=== PATIENT | male | born 1955 | race Caucasian/White ===

== ENCOUNTER → 2016-05-24 | Outpatient (CLI) | payer OTHER ==
--- NOTE | 2016-05-24 20:08 | REP ---
ORBITS COMPLETE FOR MRI: 05/24/2016. Clinical history rule out foreign body orbits before MRI. Findings: AP and lateral views were obtained. There is no radiopaque foreign body about the orbits. The patient is cleared for MRI. Signed by Wilton Valles MD 05/24/2016 07:59 P
--- NOTE | 2016-05-30 08:38 | REP ---
Right shoulder MRI study without contrast: History: Right shoulder pain. Question tear. Osteonecrosis right shoulder. Comparison radiographs have been retrieved from [facility] dated March 20, 2016. These demonstrate osteoarthritic spurring at the glenohumeral articulation and a triangular osteochondral defect in the articular surface of the humeral head consistent with an unstable osteochondral fragment associated with an osteonecrosis. There is also an accessory ossicle at the superior aspect of the acetabulum. Technique: Axial, oblique coronal, and oblique sagittal imaging planes are utilized. T1 and T2-weighted scans were obtained in the usual fashion. MRI findings: There is a small amount of glenohumeral and acromioclavicular joint fluid. A tiny sliver of subacromial subdeltoid bursal effusion is seen. There is some fluid in the biceps tendon sheath. No juxtaarticular cyst or mass is seen. There is osteoarthritis of the acromioclavicular joint with inferior and superior hypertrophy and spurring. There is some inferolateral spurring of the acromion process. There are fairly large areas of marrow edema and subcortical cyst formation in the superolateral humeral head in the region of the greater tuberosity. The osteochondral defect lesion versus osteonecrotic lesion which is sclerotic on the radiographs along the articular margin of the humeral head is seen on MR as a low T1, low T2 signal intensity lesion in the articular cartilage bone. This measures 11 mm in craniocaudal span by 16 mm anterior to posterior by 6 mm in medial to lateral depth. On gradient echo T2-weighted scan, there are two osteochondral fragments adjacent one another both of which are surrounded by T2 hyperintense fluid signal consistent with unstable osteochondral fragments. There is some depression of the articular surface over the fragments both radiographically and on MR images in the oblique coronal plane. There is subcortical cyst formation deep to this osteochondral defect lesion. Cortical and medullary bone signal intensity are otherwise normal in the humeral head. Osteoarthritic spurring is seen at the inferior margin of the glenoid as well as at the greater tuberosity at the supraspinatus tendon insertion. There is articular cartilage loss on the humeral head and on the glenoid indicating moderate to advanced chondromalacia. Some glenoid spurring is seen. There is an ossific body in the superior labral cartilage. This is felt to correspond to the radiographic finding of bone density here. Some fraying and irregularity of the anterior labral cartilage and less prominent fraying and increased signal intensity is seen in the posterior labral cartilage. The infraspinatus, subscapularis, and biceps tendons appear to be intact. There is diffuse tendinosis/tendonitis change in the distal supraspinatus tendon without focal full-thickness supraspinatus tear. There is a focal partial-thickness T2 hyperintense lesion in the distal insertion of the supraspinatus tendon on oblique coronal T2-weighted images. Impression: Findings compatible with advanced osteochondral defect lesion in the humeral head, unstable fragment in place. Subcortical cyst formation adjacent. There is also glenohumeral and acromioclavicular osteoarthritis, acromion process spurring, tendinosis/tendonitis change in the supraspinatus tendon, degenerative fraying/tear of the labral cartilage, small ossific body in the superior labral cartilage, and extensive marrow edema subcortical cyst formation in the greater tuberosity region of the humeral head. Signed by Eduardo Diaz MD 05/30/2016 09:27 A
== END ==
LOC: M RAD 17:03
PROVIDERS: ATTEND Orthopaedic Surgery
DX: M87.811 Other osteonecrosis, right shoulder (principal); M19.011 Primary osteoarthritis, right shoulder; R93.7 Abnormal findings on diagnostic imaging of other parts of musculoskeletal system

== ENCOUNTER → 2017-04-04 | Outpatient (REF) | payer OTHER ==
[2017-04-04 18:11] LABS: BASO # 0.1 10^3/uL (0.0-0.2); BASO % 1.5 % (0.0-1.0); EOS # 0.3 10^3/uL (0.0-0.50); IMMATURE GRANULOCYTE % 0.2 % (0-0); LYMPH # 2.4 10^3/uL (1.5-4.5); LYMPH % 50.9 % (24.0-44.0); MEAN CORPUSCULAR HEMOGLOBIN 34.9 pg (27.0-33.0); MEAN CORPUSCULAR HGB CONC 34.8 g/dl (32.0-36.5); MEAN CORPUSCULAR VOLUME 100.5 fl (80.0-96.0); MONO # 0.5 10^3/uL (0.0-0.8); NEUTROPHILS # 1.4 10^3/uL (1.8-7.7); NEUTROPHILS % 30.4 % (36.0-66.0); PLATELET COUNT, AUTOMATED 299 10^3/uL (150-450); RED CELL DISTRIBUTION WIDTH 12.5 % (11.5-14.5); WHITE BLOOD COUNT 4.6 10^3/uL (4.0-10.0)
[2017-04-04 18:37] LABS: ANION GAP 8 MEQ/L (8-16); BLOOD UREA NITROGEN 21 MG/DL (7-18); CALCIUM LEVEL 8.9 MG/DL (8.8-10.2); CARBON DIOXIDE LEVEL 30 MEQ/L (21-32); CHLORIDE LEVEL 97 MEQ/L (98-107); CREATININE FOR GFR 0.96 MG/DL (0.70-1.30); GLOMERULAR FILTRATION RATE > 60.0 (>49); GLUCOSE, FASTING 135 MG/DL (80-110); POTASSIUM SERUM 4.4 MEQ/L (3.5-5.1); SODIUM LEVEL 135 MEQ/L (136-145)
== END ==
LOC: M LAB REF 17:24
PROVIDERS: ATTEND Family Medicine
DX: I25.10 Atherosclerotic heart disease of native coronary artery without angina pectoris (principal); E11.42 Type 2 diabetes mellitus with diabetic polyneuropathy; Z95.5 Presence of coronary angioplasty implant and graft

== ENCOUNTER → 2018-01-28 | Outpatient (REF) | payer OTHER ==
[2018-01-28 17:52] LABS: BASO # 0.1 10^3/uL (0.0-0.2); BASO % 1.1 % (0.0-1.0); EOS # 0.3 10^3/uL (0.0-0.50); HEMATOCRIT 38.9 % (42.0-52.0); HEMOGLOBIN 13.1 g/dl (13.5-17.5); IMMATURE GRANULOCYTE % 0.4 % (0-3.0); LYMPH % 36.6 % (24.0-44.0); MEAN CORPUSCULAR HEMOGLOBIN 35.4 pg (27.0-33.0); MEAN CORPUSCULAR HGB CONC 33.7 g/dl (32.0-36.5); MEAN CORPUSCULAR VOLUME 105.1 fl (80.0-96.0); MONO # 0.6 10^3/uL (0.0-0.8); MONO % 9.9 % (0.0-5.0); NEUTROPHILS # 2.6 10^3/uL (1.8-7.7); PLATELET COUNT, AUTOMATED 350 10^3/uL (150-450); RED CELL DISTRIBUTION WIDTH 12.7 % (11.5-14.5); WHITE BLOOD COUNT 5.5 10^3/uL (4.0-10.0)
[2018-01-28 18:20] LABS: ALBUMIN 3.8 GM/DL (3.2-5.2); ALBUMIN/GLOBULIN RATIO 1.15 (1.00-1.93); ALKALINE PHOSPHATASE 55 U/L (45-117); ALT/SGPT 18 U/L (12-78); ANION GAP 8 MEQ/L (8-16); AST/SGOT 18 U/L (7-37); BILIRUBIN,TOTAL 0.4 MG/DL (0.2-1.0); BLOOD UREA NITROGEN 17 MG/DL (7-18); CALCIUM LEVEL 9.7 MG/DL (8.8-10.2); CARBON DIOXIDE LEVEL 31 MEQ/L (21-32); CHLORIDE LEVEL 98 MEQ/L (98-107); CHOLESTEROL LEVEL 150 MG/DL (<200); CHOLESTEROL RISK RATIO 1.724 (<5); CREATININE FOR GFR 0.98 MG/DL (0.70-1.30); GLOMERULAR FILTRATION RATE > 60.0 (>49); GLUCOSE, FASTING 202 MG/DL (70-100); HDL CHOLESTEROL 87 MG/DL (>40); LDL CHOLESTEROL 42 MG/DL (<100); NON-HDL-C 63 MG/DL; POTASSIUM SERUM 4.3 MEQ/L (3.5-5.1); SODIUM LEVEL 137 MEQ/L (136-145); TOTAL PROTEIN 7.1 GM/DL (6.4-8.2); TRIGLYCERIDES LEVEL 104 MG/DL (<150)
== END ==
LOC: M LAB REF 16:24
DX: I25.10 Atherosclerotic heart disease of native coronary artery without angina pectoris (principal); E11.42 Type 2 diabetes mellitus with diabetic polyneuropathy; E11.319 Type 2 diabetes mellitus with unspecified diabetic retinopathy without macular edema; E78.4 Other hyperlipidemia; Z95.5 Presence of coronary angioplasty implant and graft; I10 Essential (primary) hypertension
CPT/HCPCS: 80053

== ENCOUNTER 2019-02-13 09:43 | Inpatient (IN) | payer MEDICARE, MEDICAID ==
[~2019-02-13] VITALS: Ht 182.9 cm; Wt 83.3 kg
[2019-02-13 10:42] LABS: BASO # 0.1 10^3/uL (0.0-0.2); BASO % 0.6 % (0.0-1.0); EOS # 0.3 10^3/uL (0.0-0.5); HEMATOCRIT 20.7 % (42.0-52.0); LYMPH # 1.8 10^3/uL (1.5-5.0); LYMPH % 21.6 % (24.0-44.0); MEAN CORPUSCULAR HEMOGLOBIN 28.5 pg (27.0-33.0); MEAN CORPUSCULAR HGB CONC 30.4 g/dl (32.0-36.5); MEAN CORPUSCULAR VOLUME 93.7 fl (80.0-96.0); MONO # 0.7 10^3/uL (0.0-0.8); MONO % 8.1 % (0.0-5.0); NEUTROPHILS # 5.5 10^3/uL (1.5-8.5); NEUTROPHILS % 66.5 % (36.0-66.0); PLATELET COUNT, AUTOMATED 400 10^3/uL (150-450); RED BLOOD COUNT 2.21 10^6/uL (4.30-6.10); WHITE BLOOD COUNT 8.3 10^3/uL (4.0-10.0)
[2019-02-13 10:46] LABS: HEMOGLOBIN 6.3 g/dl (13.5-17.5)
[2019-02-13 10:47] LABS: INR 1.08; PROTHROMBIN TIME 13.7 SECONDS (11.8-14.0)
[2019-02-13 10:48] LABS: PARTIAL THROMBOPLASTIN TIME 27.7 SECONDS (25.0-38.4)
[2019-02-13 11:10] LABS: ALBUMIN 2.9 GM/DL (3.2-5.2); ALT/SGPT 11 U/L (12-78); BILIRUBIN,DIRECT 0.2 MG/DL (0.0-0.2); BILIRUBIN,TOTAL 0.8 MG/DL (0.2-1.0); BLOOD UREA NITROGEN 23 MG/DL (7-18); CALCIUM LEVEL 8.5 MG/DL (8.8-10.2); CARBON DIOXIDE LEVEL 25 MEQ/L (21-32); CHLORIDE LEVEL 104 MEQ/L (98-107); CK-MB VALUE MASS 2.5 NG/ML (<3.6); CPK CREATINE PHOSPHOKINASE 95 U/L (39-308); CREATININE FOR GFR 1.15 MG/DL (0.70-1.30); FERRITIN 48 NG/ML (26-388); GLOMERULAR FILTRATION RATE > 60.0 (>49); GLUCOSE, FASTING 151 MG/DL (70-100); IRON (FE) 35 UG/DL (65-175); LIPASE 218 U/L (73-393); MB/CK RELATIVE INDEX 2.63 (< OR =4); POTASSIUM SERUM 4.1 MEQ/L (3.5-5.1); SODIUM LEVEL 138 MEQ/L (136-145); TOTAL IRON BINDING CAPACITY 388 UG/DL (250-450); TOTAL PROTEIN 6.2 GM/DL (6.4-8.2); TROPONIN I 0.02 NG/ML (< 0.10)
[2019-02-13] MEDS ORDERED: LISI10TA4 PO (11:37)
[2019-02-13] MEDS ORDERED: LEVO50TA5 PO (11:37)
[2019-02-13] MEDS ORDERED: ATOR1TAB21 (11:37)
[2019-02-13] MEDS ORDERED: CYAN1000VL INJ (11:37)
[2019-02-13] MEDS ORDERED: AMLO5TAB6 PO (11:37)
[2019-02-13] MEDS ORDERED: TAMS1CAP17 PO (11:37)
[2019-02-13] MEDS ORDERED: METO1TAB87 PO (11:37)
[2019-02-13] MEDS ORDERED: CLOP75TA2 (11:37)
[2019-02-13] MEDS ORDERED: TELM1TAB (11:37)
[2019-02-13] MEDS ORDERED: BRIL90TA PO (11:37)
[2019-02-13] MEDS ORDERED: METF10004 PO (11:37)
[2019-02-13] MEDS ORDERED: ASPI81TA33 PO (11:37)
[2019-02-13] MEDS ORDERED: ATOR80TA59 PO (12:45)
[2019-02-13] MEDS ORDERED: FUROSEMIDE 20 MG/2 ML VIAL (J1940) IV SCH (13:00)
[2019-02-13] MEDS ORDERED: FUROSEMIDE 20 MG/2 ML VIAL (J1940) IV ONE (13:00)
[2019-02-13 13:08] LABS: LDH LACTATE DEHYDROGENASE 177 U/L (87-241)
[2019-02-13] MEDS ORDERED: METOPROLOL TART 25 MG TABLET PO ONE (13:30)
[2019-02-13] MEDS ORDERED: METOPROLOL 5 MG/5 ML VIAL IV SCH (13:30)
[2019-02-13] MEDS ORDERED: LISINOPRIL 10 MG TAB PO ONE ×2 (13:30→16:00)
[2019-02-13] MEDS ORDERED: NITROGLYCERIN 2% OINT 1 GM *U/D* PKT As Ordered ONE (13:47)
[2019-02-13] MEDS ORDERED: GLUCOSE 4 GM CHEW TABLET PO PRN (14:00)
[2019-02-13] MEDS ORDERED: DEXTROSE 50% 50 ML SYRINGE IV PRN (14:00)
[2019-02-13] MEDS ORDERED: GLUCAGON FOR INJ 1 MG VIAL (J1610) SC PRN (14:00)
[2019-02-13] MEDS ORDERED: MOM 30ML SUSPENSION UDC PO PRN (14:30)
[2019-02-13] MEDS ORDERED: SENOKOT S TAB PO PRN (14:30)
[2019-02-13] MEDS: NITROGLYCERIN 2% OINT 1 GM *U/D* PKT TOP SCH ×3 (14:57→22:00)
[2019-02-13] MEDS ORDERED: PANTOPRAZOLE 40MG INJ (PROTONIX) (C9113) IV ONE (15:00)
[2019-02-13 15:24] VITALS: BP 183/87
--- NOTE | 2019-02-13 15:36 | HPE ---
DATE OF ADMISSION: 02/13/2019 PRIMARY CARE PHYSICIAN: Aide Freeman MD MEDICAL LABORATORY TECHNICIAN: Dr. Farooq CONDENSER TUBE TENDER: Dr. James at [facility]. CHIEF COMPLAINT: Weakness, shortness of breath. HISTORY OF PRESENT ILLNESS: This is a 63-year-old male with history of coronary artery disease (CAD), ST elevation, acute coronary syndrome in April of 2018 with stents placed on chronic aspirin and Brilinta, hypertension, dyslipidemia and diabetes, who was recently scoped at [facility] in January 2019 with mild gastritis on EGD and colonoscopy showing internal hemorrhoids and colonic polyps. Since then, the patient was transfused for a hemoglobin of 6.3 with resolution of his symptoms. After hospital discharge from [facility], he followed up with his primary care physician Dr. Aide Freeman where he was given B12 injections as recommended by customer operations intern at [facility]. While at [facility] the customer operations intern fel that his hypothyroidism and B12 deficiency contributed to his severe anemia. On seeing that the patient's hemoglobin is again at 6.3, he was urged to come to the emergency room. The patient otherwise denies any chest pain, pressure or tightness, lightheadedness or dizziness. Denies any cough. He complains of extreme fatigue, weakness, difficulty ambulating due to fatigue and was found to have a hemoglobin of 6.3 in the ER. The patient's retic count was elevated at 2.9. Hospitalist was called to admit for symptomatic anemia. PAST MEDICAL HISTORY: Symptomatic anemia, previous hemoglobin of 6.3, January 2019. CAD with stent, last one was placed April 2018. Grade 1 diastolic dysfunction, ejection fraction 65-70%. Hypertension. Dyslipidemia. Diabetes. Gastric erythema. Colonic polyps in the transverse colon, 4-6 mm, which were removed. Mild internal hemorrhoids. Antral erythema without any ulcers. Mild to moderate mitral valve insufficiency. Moderate pulmonary hypertension. Moderate aortic valve stenosis. PAST SURGICAL HISTORY: Cardiac catheterization April 2018. PCI and stent placement. Joint replacement bilateral hip. ALLERGIES: No known drug allergies. HOME MEDICATIONS: - aspirin 81 mg daily - Brilinta 90 mg twice a day - metformin 1 gram twice a day - B12 injection 1 mg every 2 weeks - Norvasc 5 mg at bedtime - atorvastatin 80 mg at bedtime - levothyroxine 50 mcg at bedtime - lisinopril 10 mg at bedtime - metoprolol 25 mg twice a day - tamsulosin 0.4 mg at bedtime SOCIAL HISTORY: Patient never smoked cigarettes. Drinks liquor 21 shots per week, marijuana daily. FAMILY HISTORY: Mother with CAD, maternal grandfather with CAD and myocardial infarction. REVIEW OF SYSTEMS: Per HPI, 12 point system otherwise negative. PHYSICAL EXAMINATION: VITAL SIGNS: Temperature 97, pulse 74, respiratory rate 16, blood pressure 182/79, 100% on room air. Generally, patient is awake, alert and oriented to person, place and time. Slight pallor. No icterus. No jaundice. No jugular venous distention (JVD). No thyromegaly. Slightly disheveled caceres. No use of respiratory accessory muscles, lungs diminished. Heart S1, S2. Systolic ejection murmur in the aortic area with radiation to the carotids. Displaced point of maximal impulse laterally. Abdomen is soft, nontender, nondistended. Positive bowel sounds times four quadrants. No hepatosplenomegaly, rebound or guarding. No abdominal bruits. Extremities no cyanosis or clubbing. Skin warm and dry, well perfused. LABORATORY DATA: White count 8.3, hemoglobin 6.3, hematocrit 20.7, platelet count 400, 66% neutrophils, 21% lymphocytes, 8% monocytes, reticulocytes 2.9, haptoglobin is pending. Sodium 138, potassium 4.1, chloride 104, bicarb 25, BUN 23, creatinine 1.15, glucose 151, calcium 8.5, iron 35, TIBC 388, ferritin 48, total bilirubin 0.8, direct bilirubin 0.2, AST 9, ALT 11, alkaline phosphatase 112, LDH 177, total CK 95, MB fraction 2.5, troponin 0.02. SPEP and UPEP are pending. INR 1.08. Chest x-ray is pending. ASSESSMENT/PLAN: This is a 53-year-old male with history of CAD, LAD stent April 2018, hypertension, hyperlipidemia, diabetes, no prior history of smoking admitted for recurrent anemia which is symptomatic with complaints of fatigue. The patient had an EGD done at [facility] which shows gastric erythema, colonic polyps, internal hemorrhoids, who presents back to the ER today due to complaints of fatigue and generalized weakness. Symptomatic anemia of unknown source. The patient did have an EGD and colonoscopy by Dr. James at [facility] on 01/12/19 which showed mild antral gastritis, transverse colon polyps which were biopsied and mild internal hemorrhoids. Denies any bright red blood per rectum, melena or black tarry stools. He complains of generalized weakness and fatigue, and will be transfused 4 units of RBCs. Per Dr. Carmen, cad detailer oncology registrar, the patient already completed a workup of EGD and colonoscopy. It is reasonable to do a CT angiography enterography once the patient is stable and has been transfused, and workup as an outpatient and refer back to his previous cad detailer, Dr. James. Will monitor the patient's clinical status with hemoglobin every 6 hours as well as cardiac markers every 6 hours. Other cell lines on the cbc including wbc and platelets are normal, along with appropriate increase in RDW and reticulocyte count making bone marrow failure unlikely. will check hemolysis workup with haptoglobin, LDH, and ABIGAIL. bili looks normal. Unlikely to be myeloma with normal calcium, no signs of infection, and normal creatinine, but will check UPEP and SPEP as well. If abnormal findings, will consult Hematology. Per Dr. Whitfield, customer operations intern oncology registrar, most likely from blood loss with iron deficiency. Presumed GI bleed with history of mild gastritis in the setting of aspirin and Brilinta. Per Dr. Farooq, the patient's hand flatwork finisher, discontinue the aspirin and the Brilinta and start on Plavix 75 mg daily since the patient's stent was placed in April 2018 and will still require antiplatelet regimen. For now the patient will be placed on Protonix drip with 80 mg IV bolus times one. Hypertensive urgency. on nitropaste for now. resumed home dose of metoprolol 25 mg bid and lisinopril 10 mg qhs. Telemetry monitoring for now. check CXR due to new c/o sob. [place] vessel coronary artery disease (CAD) status post ST elevation myocardial infarction with LAD stent in April 2018. Will cycle cardiac markers due to severe anemia. Will obtain hemoglobin and hematocrit every 6 hours, transfuse up to a hemoglobin greater than 10 to decrease his cardiac demand. Moderate aortic stenosis. Prevent hypotension or hypovolemia to prevent ischemia, syncope. Moderate pulmonary hypertension. The patient had been a nonsmoker in the past. Will check a chest x-ray, if needed CT chest. B12 deficiency. received his b12 injection Hypothyroidism resumed home dose of synthroid. Iron deficiency supplement iron and vitamin c. Diabetes on sliding scale and consistent carbs diet. Dyslipidemia resumed high dose statins Deep vein thrombosis (DVT) prophylaxis compression stockings MTDD
[2019-02-13 15:39] VITALS: BP 160/86
--- NOTE | 2019-02-13 15:41 | REP ---
Portable chest x-ray: Single view. History: Shortness of breath. No comparison study. Findings: Semi-erect AP portable chest x-ray shows coronary artery stent material overlying the left heart. The heart is not felt to be enlarged. Interstitial markings are prominent diffusely however and there are Roz B and C lines. There is fissural thickening in the minor fissure. No mary ann pleural effusion is seen. There is some linear fibrosis in the right lung apex. Impression: Findings consistent with acute interstitial pulmonary edema. The patient is status post left coronary artery stent grafting. No acute infiltrate. No mary ann pleural effusion. Electronically Signed by Eduardo Diaz MD 02/13/2019 04:31 P
[2019-02-13] MEDS: PANTOPRAZOLE SODIUM 40 MG in D5W 50 ML IV SCH ×3 (16:11→23:50)
[2019-02-13] MEDS: FUROSEMIDE 40 MG/4 ML VIAL (J1940) IV SCH ×2 (18:09→23:51)
[2019-02-13] MEDS: HumaLOG INSULIN (NovoLOG) PER UNIT SC SCH ×2 (18:10→21:00)
[2019-02-13 19:00] VITALS: BP 140/80
--- NOTE | 2019-02-13 19:06 | ECGEPIP ---
[facility] - ED Test Date: 2019-02-13 Pat Name: DIA MICHAEL Department: Room: - Gender: Male Bond Analyst: : 1955 Requested By: ULISES Elliott Order Number: [id number] Reading MD: Osmar Reece Measurements Intervals [place] Rate: 60 P: -68 OK: 201 QRS: -25 QRSD: 114 T: 106 QT: 445 QTc: 446 Interpretive Statements SINUS RHYTHM WITH FIRST DEGREE AV BLOCK ANTERIOR MYOCARDIAL INFARCTION, OF INDETERMINATE AGE NO PRIORS FOR COMPARISON Electronically Signed on 02-13-2019 19:06:48 EDT by Osmar Reece
[2019-02-13 21:00] VITALS: BP 125/67
[2019-02-13] MEDS: METOPROLOL TART 25 MG TABLET PO SCH (21:00)
[2019-02-13] MEDS ORDERED: amLODIPine 5 MG TAB PO SCH (21:00)
[2019-02-13] MEDS ORDERED: LISINOPRIL 10 MG TAB PO SCH (21:00)
[2019-02-13] MEDS: amLODIPine 5 MG TAB PO SCH (21:00)
[2019-02-13] MEDS: ATORVASTATIN 20 MG TAB PO SCH (21:42)
[2019-02-13] MEDS: LEVOTHYROXINE 50MCG TABLET (0.05MG) PO SCH (21:42)
[2019-02-13] MEDS: POTASSIUM CHLORIDE 10 MEQ SR TABLET PO SCH (21:43)
[2019-02-13] MEDS: TAMSULOSIN 0.4 MG CAP PO SCH (21:43)
[2019-02-14] VITALS: BP 130/68
[2019-02-14 01:33] LABS: HEMOGLOBIN 9.6 g/dl (13.5-17.5)
[2019-02-14] MEDS ORDERED: ACETAMINOPHEN TAB 650MG DOSE (2X325MG) PO ONE (01:45)
[2019-02-14 01:49] LABS: BLOOD UREA NITROGEN 23 MG/DL (7-18); CALCIUM LEVEL 8.4 MG/DL (8.8-10.2); CARBON DIOXIDE LEVEL 30 MEQ/L (21-32); CHLORIDE LEVEL 103 MEQ/L (98-107); CK-MB VALUE MASS 2.2 NG/ML (<3.6); CPK CREATINE PHOSPHOKINASE 100 U/L (39-308); CREATININE FOR GFR 1.15 MG/DL (0.70-1.30); GLOMERULAR FILTRATION RATE > 60.0 (>49); GLUCOSE, FASTING 177 MG/DL (70-100); MAGNESIUM LEVEL 1.3 MG/DL (1.8-2.4); POTASSIUM SERUM 4.2 MEQ/L (3.5-5.1); SODIUM LEVEL 139 MEQ/L (136-145); TROPONIN I 0.03 NG/ML (< 0.10)
[2019-02-14] MEDS: NITROGLYCERIN 2% OINT 1 GM *U/D* PKT TOP SCH ×2 (02:00→08:15)
[2019-02-14 03:24] LABS: TOTAL PROTEIN 6.2 GM/DL (6.4-8.2)
[2019-02-14 04:00] VITALS: BP 132/64
[2019-02-14] MEDS ORDERED: MAG SULF 1GM/100ML (MAG RUN) 1 GM in IV 1 EA IV ONE (04:00)
[2019-02-14 04:09] LABS: NT-PRO BNP 6338 PG/ML (<125)
[2019-02-14] MEDS: FUROSEMIDE 40 MG/4 ML VIAL (J1940) IV SCH ×2 (04:43→07:56)
[2019-02-14] MEDS: PANTOPRAZOLE SODIUM 40 MG in D5W 50 ML IV SCH (04:43)
[2019-02-14 05:04] LABS: HEMATOCRIT 29.3 % (42.0-52.0); HEMOGLOBIN 9.8 g/dl (13.5-17.5); MEAN CORPUSCULAR HEMOGLOBIN 29.1 pg (27.0-33.0); MEAN CORPUSCULAR HGB CONC 33.4 g/dl (32.0-36.5); MEAN CORPUSCULAR VOLUME 86.9 fl (80.0-96.0); PLATELET COUNT, AUTOMATED 332 10^3/uL (150-450); RED BLOOD COUNT 3.37 10^6/uL (4.30-6.10); WHITE BLOOD COUNT 7.3 10^3/uL (4.0-10.0)
[2019-02-14 05:32] LABS: BLOOD UREA NITROGEN 22 MG/DL (7-18); CALCIUM LEVEL 8.4 MG/DL (8.8-10.2); CARBON DIOXIDE LEVEL 30 MEQ/L (21-32); CHLORIDE LEVEL 102 MEQ/L (98-107); CK-MB VALUE MASS 1.9 NG/ML (<3.6); CPK CREATINE PHOSPHOKINASE 83 U/L (39-308); GLOMERULAR FILTRATION RATE > 60.0 (>49); GLUCOSE, FASTING 151 MG/DL (70-100); MAGNESIUM LEVEL 1.3 MG/DL (1.8-2.4); MB/CK RELATIVE INDEX 2.29 (< OR =4); POTASSIUM SERUM 3.9 MEQ/L (3.5-5.1); SODIUM LEVEL 137 MEQ/L (136-145); TROPONIN I 0.03 NG/ML (< 0.10)
[2019-02-14] MEDS ORDERED: ISOVUE-370 76% 100ML VIAL (Q9967) As Ordered ONE (07:35)
--- NOTE | 2019-02-14 07:37 | ECHO ---
TWO-DIMENSIONAL ECHOCARDIOGRAM DATE: 02/13/2019 REFERRING PHYSICIAN: Dr. Landy Dumas INDICATION: Dyspnea. HEIGHT: 182 cm. WEIGHT: 87 kg. DIMENSIONS: IVS 1.2 LV 6.3 LVPW 1.2 LA 5.0 Aorta 3.6 IVC 2.5 Mitral E wave velocity 135 A-wave 134 FINDINGS: The study is of acceptable technical quality. The patient is in sinus rhythm with ventricular rate approximately 70 beats per minute. Left ventricle is dilated. There is mild left ventricular hypertrophy. There is fairly large wall motion abnormality involving distal anterior wall, mid and distal septum, distal inferior wall and the whole apex. These segments are severely hypokinetic. Overall estimated left ventricular ejection fraction (LVEF) is approximately 35-40%. Computer calculated ejection fraction (EF) was 56% which is certainly inaccurate. Right ventricle is normal size and systolic function. Left atrium is severely enlarged. Right atrium appears normal. Aortic valve is heavily sclerotic but it has three cusps. By 2D imaging there is at least mild to moderate restriction of mobility. Mitral valve also exhibits prominent degenerative abnormalities with mitral annular calcifications and thickening of mitral leaflets. It was poorly visualized so I cannot comment on its mobility. Tricuspid valve also was poorly seen but grossly appears normal. Pulmonic valve was not seen. No pericardial effusion. Inferior vena cava is markedly dilated but collapses with inspiration indicative of a high central venous pressure. Aortic root is normal. Aortic arch and abdominal aorta were not well seen. Doppler interrogation of aortic valve reveals no insufficiency. There is approximately moderate stenosis. Peak gradient was 47 and mean gradient 25 mmHg, calculated aortic valve area 1.3 cm2. There is a component of mitral stenosis. Peak gradient was 14 and mean gradient 7 mmHg. This was with heart rate 72 beats per minute. Based on these numbers I estimate approximately mild to moderate or moderate mitral stenosis. There was trace tricuspid insufficiency. Unfortunately quality of TR jet was not sufficient to adequately estimate pulmonary artery pressure. Evaluation of diastolic function is complicated by concomitant mitral stenosis and the fact that tissue Doppler imaging of mitral annulus was not performed. CONCLUSIONS: 1. Study is of acceptable technical quality. 2. Dilated left ventricle with mild left ventricular hypertrophy wall motion abnormality in the LAD distribution and overall LVEF estimated at 35-40%. Unable to estimate diastolic function. 3. Aortic sclerosis resulting in approximately moderate aortic stenosis with mean gradient 25 mmHg and calculated SHANAE 1.3 cm2. 4. Degenerative abnormalities of mitral valve with moderate mitral stenosis (mean gradient 7 mmHg). 5. High central venous pressure. 6. Unable to estimate pulmonary artery pressure. COMMENT: SBE prophylaxis is not recommended. Study is consistent with ischemic cardiomyopathy. MTDD
[2019-02-14] MEDS: METOPROLOL TART 25 MG TABLET PO SCH ×2 (07:55→21:00)
[2019-02-14] MEDS: amLODIPine 5 MG TAB PO SCH ×2 (07:56→21:00)
[2019-02-14] MEDS ORDERED: VoLumen 0.1% SUSPENSION 450ML BOTTLE As Ordered ONE (08:13)
[2019-02-14] MEDS ORDERED: GLUCAGON FOR INJ 1 MG VIAL (J1610) As Ordered ONE (08:14)
[2019-02-14] MEDS: MAGNESIUM CHLORIDE 64 MG TABCR (SLO MAG) PO SCH (10:14)
[2019-02-14] MEDS: MAG SULF 1GM/100ML (MAG RUN) 1 GM in IV 1 EA IV SCH ×3 (10:14→13:26)
[2019-02-14] MEDS: HumaLOG INSULIN (NovoLOG) PER UNIT SC SCH ×4 (10:15→21:00)
[2019-02-14] MEDS: PANTOPRAZOLE 40MG INJ (PROTONIX) (C9113) IV SCH ×2 (10:15→22:10)
[2019-02-14] MEDS: POTASSIUM CHLORIDE 10 MEQ SR TABLET PO SCH ×2 (10:16→22:10)
[2019-02-14] MEDS: CLOPIDOGREL 75 MG TAB PO SCH (10:16)
[2019-02-14 11:53] LABS: HEMATOCRIT 32.5 % (42.0-52.0); HEMOGLOBIN 10.9 g/dl (13.5-17.5)
[2019-02-14 12:00] VITALS: BP 133/75
[2019-02-14] MEDS ORDERED: FUROSEMIDE 40 MG/4 ML VIAL (J1940) IV SCH (12:00)
[2019-02-14 12:42] LABS: BLOOD UREA NITROGEN 21 MG/DL (7-18); CALCIUM LEVEL 8.9 MG/DL (8.8-10.2); CARBON DIOXIDE LEVEL 29 MEQ/L (21-32); CHLORIDE LEVEL 96 MEQ/L (98-107); CK-MB VALUE MASS 1.8 NG/ML (<3.6); CPK CREATINE PHOSPHOKINASE 93 U/L (39-308); CREATININE FOR GFR 1.41 MG/DL (0.70-1.30); GLOMERULAR FILTRATION RATE 53.7 (>49); GLUCOSE, FASTING 280 MG/DL (70-100); MAGNESIUM LEVEL 1.7 MG/DL (1.8-2.4); MB/CK RELATIVE INDEX 1.94 (< OR =4); POTASSIUM SERUM 3.9 MEQ/L (3.5-5.1); SODIUM LEVEL 132 MEQ/L (136-145); TROPONIN I < 0.02 NG/ML (< 0.10)
[2019-02-14] MEDS: SUCRALFATE SUSP 1GM/10ML UD PO SCH ×3 (13:27→22:11)
--- NOTE | 2019-02-14 14:29 | REP ---
CHEST, PORTABLE: AP portable view of the chest is performed and compared to a prior study 02/13/2019. There are again findings of vascular congestion and diffuse interstitial edema, essentially unchanged. Heart is upper limits of normal in size. Mediastinal silhouette is unchanged. There are degenerative changes of the spine. IMPRESSION: Stable exam. Electronically Signed by Marvin Nolen MD 02/17/2019 02:56 P
[2019-02-14] MEDS: LEVEMIR (INSULIN DETEMIR) 1 UNITS/0.01ML SC SCH ×2 (14:52→22:09)
--- NOTE | 2019-02-14 16:45 | REP ---
CT Enterography: With IV and oral contrast. History: Symptomatic anemia. Comparison study: No comparison CT study. CT enterography Technique: The patient ingested oral Volumen for PO contrast per protocol. 0.6 mg of intravenous glucagon is administered. 100 ml of Isovue 370 is given intravenously for intravenous contrast. Helical scanning is acquired. Arterial phase and delayed phase imaging was acquired. Thick slab coronal and sagittal MIP images are generated. In addition coronal and sagittal multiplanar re-formation images are generated and reviewed along with axial images. CT enterography findings: There are small bilateral pleural effusions noted. Mild cardiac enlargement is evident. There is mitral annular calcification. No adrenal lesion is seen. The liver and the spleen are normal in size homogeneous in texture. Gallbladder is somewhat small and contracted. No pancreatic abnormalities observed. Kidneys enhance symmetrically. There is no evidence of hydronephrosis or renal mass. There is a tiny subcentimeter cortical cyst at the lower pole of the left kidney. A normal appendix is seen in the right lower quadrant. There is moderate vascular calcification. There is an accessory left renal artery noted incidentally. No abdominal wall defect is seen. Bilateral hip replacements are noted. There is no evidence of abdominal or pelvic ascites. Small and large bowel loops show moderate semi solid stool content diffusely throughout the colon. No obstructive lesion is seen. No abnormality is noted in the bowel wall enhancement. No bowel wall thickening is seen. There is some mild left colonic diverticulosis. No colonic mass lesion is seen. Maximal intensity projection images show no area of bowel wall hyper enhancement or absent enhancement. No bony destructive lesion is seen. Impression: Cardiac enlargement with bilateral small pleural effusions. Tiny cortical cyst left kidney. Moderate vascular calcification. Otherwise negative. Electronically Signed by Eduardo Diaz MD 02/14/2019 05:06 P
--- NOTE | 2019-02-14 17:07 | IPN ---
DATE: 02/13/2019 SUBJECTIVE: The patient developed worsening shortness of breath yesterday due to severe anemia with a hemoglobin of 6.3, denied any chest pain, pressure or tightness. He had a hypertensive urgency with systolic blood pressure of 203/98 with chest x-ray showing pulmonary edema. The patient currently feels significantly improved. His hemoglobin is increased from 6.3 to 10.9 after 4 units of red blood cell transfusion. He denies any hematemesis, melena, black/tarry stool. He also says that his breathing is improved. He diuresed 3.1 liters overnight and 1.5 liters since midnight. Current weight is 87.3 kg. PHYSICAL EXAMINATION: Temperature 96.8, pulse 95, respiratory rate 18, blood pressure 133/75, 98% on room air. GENERAL: The patient is awake, alert and oriented times three. No pallor. No icterus. No use of accessory respiratory muscles. LUNGS: Diminished with fine crackles bilaterally at the bases. HEART: S1, S2. Sinus rhythm. Systolic ejection murmur heard at the apex, radiation to the carotids, displaced point of maximal impulse laterally and hyperdynamic impulse noted at the apex. Abdomen: Soft, nontender, nondistended. Positive bowel sounds. Extremities: Positive 2+ pitting edema. LABORATORY DATA: White count 7.3, hemoglobin 10, hematocrit 32, platelet count 332. Sodium 132, potassium 3.9, chloride 96, bicarbonate 29, BUN 21, creatinine 1.41, glucose of 280, magnesium of 1.7. IMAGING STUDIES: Chest x-ray 02/13/2019 showed acute interstitial pulmonary edema, left coronary artery stent grafting, no acute infiltrate, no mary ann pleural effusion. ASSESSMENT AND PLAN: This is a 63-year-old male with ejection fraction of 35 to 40%, moderate aortic stenosis with a mean gradient of 25, calculated SHANAE 1.3 cm, moderate mitral stenosis, high central venous pressure, unable to estimate pulmonary artery pressure, consistent with ischemic cardiomyopathy. CURRENT ISSUES: 1. Acute symptomatic anemia. The patient had been transfused 4 units of RBCs. Esophagogastroduodenoscopy (EGD) and colonoscopy by Dr. Hagen at [facility] on 01/12/2019 showed antral erythema, tranverse colon polyps are biopsied and mild internal hemorrhoids. The patient denies any gastrointestinal bleed, melena, bright red blood per rectum, black stools. He had been transfused 4 units of blood, currently denies any chest pain, pressure, tightness or shortness of breath. Per gastroenterologists, Dr. Carmen technology applications engineer yesterday, the patient had a full work with EGD and colonoscopy and reasonable to obtain a CT enterography today. If the patient continues to bleed, may need to do a CT angiogram and embolization if needed with vascular surgery. At this time, workup will also include hemolytic anemia with haptoglobin, LDH and Ju test. Bilirubin appears normal. To rule out myeloma, the patient does have normal calcium but we will check UPEP and SPEP. This case has also been discussed with the supervisor inspecting, Dr. Monique Whitfield, who is still awaiting all of the results of the workup. 2. Antral erythema in the setting of aspirin and Brilinta with presumed gastrointestinal bleed. The patient is currently on Carafate and Protonix. Since there are no obvious signs of bleeding, we will change to IV twice a day and Carafate with meals. At this time, the patient's Brilinta will be discontinued. He still needs antiplatelet medications since his previous stent was placed in April 2018 and we will need to follow this. 3. Hypertensive urgency with congestive heart failure (CHF). The patient was given NitroPaste last evening due to systolic pressure over 200. He was resumed on his home dose of metoprolol, Lisinopril, and was given IV Lasix to net negative balance over the past 24 hours. Repeat chest x-ray will be obtained today. 4. Ischemic cardiomyopathy with ST elevation myocardial infarction and LAD stent in April 2018. Currently on Plavix. Due to presumed gastrointestinal bleed, aspirin and Brilinta have been discontinued. His hemoglobin and hematocrit are much improved. To decrease his cardiac demand, he has received 4 units of RBCs transfusion. Continue with atorvastatin 80 mg at night, metoprolol 25 mg twice a day. 5. Moderate aortic stenosis. We are preventing hypotension and hypovolemia to prevent further ischemia, syncopal episodes. At this time, I have discontinued the patient's 10 mg of Lisinopril in order to monitor his volume status. 6. Low potassium and low magnesium. Supplemented. They have been decreased due to Lasix being given every 6 hours. 7. Hypothyroidism. On chronic Synthroid 50 mcg at night. 8. Congestive heart failure (CHF), systolic and diastolic heart failure with ejection fraction of 35% due to ischemic cardiomyopathy. Moderate aortic stenosis. The patient is monitored with his volume status. We have discontinued his Lisinopril due to acute kidney injury, as well as moderate aortic stenosis to prevent severe hypovolemia. 9. Type 2 diabetes with hyperglycemia. The patient's oral hypoglycemics have been discontinued due to acute heart failure. He is currently on insulin sliding scale and we will supplement with 10 units at night Levemir, hold for a glucose that is less than 180. 10. Acute kidney injury. The patient has diuresed and with net negative balance. We will repeat the chest x-ray and we will continue with diuresis, but we will monitor the patient's blood pressure and volume status. ANN MARIE
[2019-02-14 18:05] LABS: HEMATOCRIT 29.6 % (42.0-52.0); HEMOGLOBIN 9.8 g/dl (13.5-17.5)
[2019-02-14 18:30] LABS: BLOOD UREA NITROGEN 21 MG/DL (7-18); CALCIUM LEVEL 8.4 MG/DL (8.8-10.2); CARBON DIOXIDE LEVEL 32 MEQ/L (21-32); CHLORIDE LEVEL 97 MEQ/L (98-107); CREATININE FOR GFR 1.19 MG/DL (0.70-1.30); GLOMERULAR FILTRATION RATE > 60.0 (>49); GLUCOSE, FASTING 140 MG/DL (70-100); MAGNESIUM LEVEL 2.2 MG/DL (1.8-2.4); POTASSIUM SERUM 3.7 MEQ/L (3.5-5.1); SODIUM LEVEL 135 MEQ/L (136-145)
[2019-02-14 20:00] VITALS: BP 113/61
[2019-02-14] MEDS ORDERED: LISINOPRIL 10 MG TAB PO SCH (21:00)
[2019-02-14] MEDS: ATORVASTATIN 20 MG TAB PO SCH (22:10)
[2019-02-14] MEDS: LEVOTHYROXINE 50MCG TABLET (0.05MG) PO SCH (22:10)
[2019-02-14] MEDS: TAMSULOSIN 0.4 MG CAP PO SCH (22:11)
[2019-02-15] VITALS: BP 121/64
[2019-02-15 00:19] LABS: HEMATOCRIT 31.8 % (42.0-52.0); HEMOGLOBIN 10.6 g/dl (13.5-17.5)
[2019-02-15 00:34] LABS: BLOOD UREA NITROGEN 23 MG/DL (7-18); CALCIUM LEVEL 8.5 MG/DL (8.8-10.2); CARBON DIOXIDE LEVEL 30 MEQ/L (21-32); CHLORIDE LEVEL 100 MEQ/L (98-107); GLOMERULAR FILTRATION RATE > 60.0 (>49); GLUCOSE, FASTING 120 MG/DL (70-100); MAGNESIUM LEVEL 2.1 MG/DL (1.8-2.4); SODIUM LEVEL 138 MEQ/L (136-145)
[2019-02-15 04:00] VITALS: BP 136/85
[2019-02-15 06:15] LABS: HEMATOCRIT 31.6 % (42.0-52.0); HEMOGLOBIN 10.4 g/dl (13.5-17.5)
[2019-02-15 06:43] LABS: BLOOD UREA NITROGEN 23 MG/DL (7-18); CALCIUM LEVEL 8.7 MG/DL (8.8-10.2); CARBON DIOXIDE LEVEL 31 MEQ/L (21-32); CHLORIDE LEVEL 102 MEQ/L (98-107); CREATININE FOR GFR 1.14 MG/DL (0.70-1.30); GLOMERULAR FILTRATION RATE > 60.0 (>49); GLUCOSE, FASTING 79 MG/DL (70-100); MAGNESIUM LEVEL 2.1 MG/DL (1.8-2.4); POTASSIUM SERUM 4.2 MEQ/L (3.5-5.1); SODIUM LEVEL 138 MEQ/L (136-145)
[2019-02-15] MEDS: HumaLOG INSULIN (NovoLOG) PER UNIT SC SCH ×4 (07:30→21:00)
[2019-02-15 08:00] VITALS: BP 156/90
[2019-02-15] MEDS ORDERED: FUROSEMIDE 20 MG/2 ML VIAL (J1940) IV SCH (08:00)
[2019-02-15] MEDS: SUCRALFATE SUSP 1GM/10ML UD PO SCH ×4 (09:02→22:10)
[2019-02-15] MEDS: MAGNESIUM CHLORIDE 64 MG TABCR (SLO MAG) PO SCH (09:02)
[2019-02-15] MEDS: PANTOPRAZOLE 40MG INJ (PROTONIX) (C9113) IV SCH ×2 (09:02→22:11)
[2019-02-15] MEDS: CLOPIDOGREL 75 MG TAB PO SCH (09:03)
[2019-02-15] MEDS: FUROSEMIDE 20 MG/2 ML VIAL (J1940) IV SCH ×2 (09:03→16:32)
[2019-02-15] MEDS: METOPROLOL TART 25 MG TABLET PO SCH ×2 (09:03→22:13)
[2019-02-15] MEDS: POTASSIUM CHLORIDE 10 MEQ SR TABLET PO SCH ×2 (09:03→22:13)
[2019-02-15 12:34] VITALS: BP 155/88
[2019-02-15 12:34] LABS: BLOOD UREA NITROGEN 21 MG/DL (7-18); CARBON DIOXIDE LEVEL 29 MEQ/L (21-32); CHLORIDE LEVEL 101 MEQ/L (98-107); CREATININE FOR GFR 1.25 MG/DL (0.70-1.30); GLOMERULAR FILTRATION RATE > 60.0 (>49); GLUCOSE, FASTING 200 MG/DL (70-100); SODIUM LEVEL 138 MEQ/L (136-145)
[2019-02-15] MEDS: LISINOPRIL *2.5 MG* TAB PO SCH ×2 (12:34→22:12)
--- NOTE | 2019-02-15 12:41 | REP ---
PA and lateral chest: Comparison is the portable chest dated 02/14/2019. The diffuse interstitial coarsening as slightly improved. There are no focal infiltrates. There are no pleural effusions. Cardiac size is normal. The nakita, mediastinum, skeletal structures are unremarkable. Impression: The interstitial coarsening has improved. The cardiac size is normal. A coronary artery stent is incidentally identified. This is unchanged. Electronically Signed by Marvin Rodriguez MD 02/15/2019 12:33 P
--- NOTE | 2019-02-15 13:31 | IPN ---
DATE: 02/15/2019 Patient currently denies any shortness of breath, chest pain, pressure, tightness, lightheadedness or dizziness. Afebrile overnight. No fever or chills. PHYSICAL EXAMINATION: Temperature 98, pulse 68, respiratory rate 18, blood pressure 156/90, 96% on room air. Generally, patient is awake, alert and oriented to person, place and time, answering questions appropriately. No use of respiratory accessory muscles. Speaks in full sentences. Lungs clear to auscultation. No wheezing or rales. Air entry is equal bilaterally. There are some fine bibasilar crackles. Heart S1, S2 regular rate and rhythm. Abdomen is soft, nontender, nondistended. Extremities have no pitting edema. LABORATORY DATA:: White count 7.3, hemoglobin 10.4, hematocrit 31, platelet count 332, sodium 138, potassium 4.2, chloride 103, bicarb 31, BUN 23, creatinine 1.14, glucose of 78. IMAGING STUDY: Chest x-ray 02/14/2019 stable exam. Vascular congestion. Diffuse interstitial edema, essentially unchanged. ASSESSMENT/PLAN: 63-year-old male with ejection fraction of 35-40%, moderate aortic stenosis, mean gradient 25, calculated SHANAE 1.3 cm, moderate mitral stenosis, high central venous pressure, ischemic cardiomyopathy, recurrent anemia of unknown origin, hypertensive heart disease, hypothyroidism, diabetes, who presented to the emergency room with symptomatic anemia, was found to have recurrent anemia with a hemoglobin of 6.3, thought to be exacerbated by B12 deficiency and severe hypothyroidism. The patient underwent a scope at [facility] by Dr. Parekh and was found to have antral erythema, mild internal hemorrhoids and colonic polyps in the transverse colon. On followup with his primary care physician he was found to have repeat hemoglobin of 6.3 with complaints of fatigue and weakness. CURRENT ISSUES: 1. Symptomatic anemia. Resolved after [address] angiography negative. Awaiting hemolytic workup. UPEP and SPEP to rule out myeloma. Capsule endoscopy per Dr. Carmen as an outpatient. Continue to hold aspirin and Brilinta. Due to stent recently placed in April 2018, patient needs Plavix. 2. Antral erythema with presume GI bleed on PPI twice daily and Carafate. Caustic Cresylate Shift Superintendent, Dr. Farooq, with okay with stopping the aspirin and Brilinta for now, but will need Plavix since his last stent was placed in April 2018. 3. Ischemic cardiomyopathy with a history of ST elevation [place], LAD stent April 2018 on Plavix. Due to presumed GI bleed, aspirin and Brilinta have been discontinued. Hemoglobin and hematocrit is much improved after 4 units of RBC transfusion. He is continued on atorvastatin and metoprolol. 4. Moderate . Will monitor volume statue due to manuel of further ischemia, heart failure and syncope. We are monitoring his volume status frequently to prevent hypotension and hypovolemia. 5. Hypertensive urgency. The patient's blood pressure is significantly improved back to baseline. 6. Congestive heart failure (CHF), systolic and diastolic dysfunction exacerbation. EF is 35% with reduced ejection fraction. The patient is currently on Lasix. Resume low dose of his lisinopril and monitor his renal function. MTDD
[2019-02-15 15:45] VITALS: BP 170/78
[2019-02-15] MEDS ORDERED: oxyCODONE 5MG TAB PO PRN (16:00)
[2019-02-15] MEDS ORDERED: SENOKOT S TAB PO PRN (16:00)
[2019-02-15] MEDS ORDERED: MOM 30ML SUSPENSION UDC PO PRN (16:00)
[2019-02-15] MEDS ORDERED: MORPHINE 4 MG/ML 1ML VIAL/SYRINGE (J2270) IV ONE (16:30)
[2019-02-15] MEDS ORDERED: oxyCODONE 5MG TAB PO ONE (16:30)
[2019-02-15] MEDS: LIDOCAINE 5% (LIDODERM) PATCH TD SCH (16:32)
[2019-02-15] MEDS: amLODIPine 5 MG TAB PO SCH ×2 (16:32→22:13)
[2019-02-15 18:09] LABS: HEMATOCRIT 34.9 % (42.0-52.0); HEMOGLOBIN 11.1 g/dl (13.5-17.5)
[2019-02-15 18:41] LABS: BLOOD UREA NITROGEN 23 MG/DL (7-18); CALCIUM LEVEL 8.9 MG/DL (8.8-10.2); CARBON DIOXIDE LEVEL 30 MEQ/L (21-32); CHLORIDE LEVEL 100 MEQ/L (98-107); CREATININE FOR GFR 1.24 MG/DL (0.70-1.30); GLOMERULAR FILTRATION RATE > 60.0 (>49); GLUCOSE, FASTING 218 MG/DL (70-100); MAGNESIUM LEVEL 1.8 MG/DL (1.8-2.4); POTASSIUM SERUM 4.2 MEQ/L (3.5-5.1); SODIUM LEVEL 138 MEQ/L (136-145)
[2019-02-15] MEDS ORDERED: ACETAMINOPHEN 650MG ER TAB (TYLENOL ARTHRITIS) PO PRN (19:45)
[2019-02-15 22:00] VITALS: BP 160/80
[2019-02-15] MEDS: LEVEMIR (INSULIN DETEMIR) 1 UNITS/0.01ML SC SCH (22:11)
[2019-02-15] MEDS: ATORVASTATIN 20 MG TAB PO SCH (22:12)
[2019-02-15] MEDS: TAMSULOSIN 0.4 MG CAP PO SCH (22:12)
[2019-02-15] MEDS: **NOTE PATIENT COMMENT** MISC XX SCH (22:13)
[2019-02-15] MEDS: LEVOTHYROXINE 50MCG TABLET (0.05MG) PO SCH (22:13)
[2019-02-15] MEDS ORDERED: IPRATROPIUM 0.5MG/ALBUTEROL 2.5MG INH SOL UD 3ML (DUONEB)(J7620) NEB PRN (22:45)
[2019-02-16 00:16] LABS: HEMATOCRIT 31.3 % (42.0-52.0); HEMOGLOBIN 10.1 g/dl (13.5-17.5)
[2019-02-16 00:31] LABS: CALCIUM LEVEL 8.4 MG/DL (8.8-10.2); CREATININE FOR GFR 1.51 MG/DL (0.70-1.30); GLOMERULAR FILTRATION RATE 49.6 (>49); MAGNESIUM LEVEL 1.8 MG/DL (1.8-2.4); POTASSIUM SERUM 4.6 MEQ/L (3.5-5.1)
[2019-02-16 06:00] VITALS: BP 159/81
[2019-02-16 06:33] LABS: HEMATOCRIT 34.3 % (42.0-52.0); HEMOGLOBIN 11.1 g/dl (13.5-17.5)
[2019-02-16 06:51] LABS: CALCIUM LEVEL 8.9 MG/DL (8.8-10.2); CREATININE FOR GFR 1.32 MG/DL (0.70-1.30); GLOMERULAR FILTRATION RATE 57.9 (>49); POTASSIUM SERUM 4.7 MEQ/L (3.5-5.1)
[2019-02-16] MEDS: HumaLOG INSULIN (NovoLOG) PER UNIT SC SCH ×5 (07:30→21:00)
[2019-02-16] MEDS: amLODIPine 5 MG TAB PO SCH ×3 (08:08→21:16)
[2019-02-16] MEDS: LISINOPRIL *2.5 MG* TAB PO SCH (08:08)
[2019-02-16] MEDS: CLOPIDOGREL 75 MG TAB PO SCH (08:09)
[2019-02-16] MEDS: SUCRALFATE SUSP 1GM/10ML UD PO SCH ×4 (08:09→21:10)
[2019-02-16] MEDS: METOPROLOL TART 25 MG TABLET PO SCH ×2 (08:09→21:00)
[2019-02-16] MEDS: POTASSIUM CHLORIDE 10 MEQ SR TABLET PO SCH ×2 (08:09→21:11)
[2019-02-16] MEDS: MAGNESIUM CHLORIDE 64 MG TABCR (SLO MAG) PO SCH (08:09)
[2019-02-16] MEDS: PANTOPRAZOLE 40MG INJ (PROTONIX) (C9113) IV SCH ×2 (08:10→21:10)
[2019-02-16] MEDS: FUROSEMIDE 20 MG/2 ML VIAL (J1940) IV SCH (08:10)
[2019-02-16] MEDS: LIDOCAINE 5% (LIDODERM) PATCH TD SCH (08:11)
[2019-02-16] MEDS ORDERED: amLODIPine 5 MG TAB PO ONE (10:00)
--- NOTE | 2019-02-16 12:14 | REP ---
Portable chest, 11:56 a.m., single AP view with the patient upright: Comparison is 02/15/2019 at 11:58 a.m. The interstitial coarsening has resolved. The lung lino are clear. There are no pleural effusions. Cardiac size is normal. The nakita, mediastinum, skeletal structures are unchanged. The coronary artery stent is again incidentally had Impression: The interstitial coarsening has resolved. Electronically Signed by Marvin Rodriguez MD 02/16/2019 12:06 P
--- NOTE | 2019-02-16 12:37 | IPN ---
DATE OF SERVICE: 02/16/2019 Lisinopril and Lasix were discontinued due to acute kidney injury with resultant improvement in creatinine from 1.5 to 1.32, still not at baseline despite pressure of 159-161. Patient denies any headache, change in vision, chest pain, pressure, tightness, PND or orthopnea or dyspnea on exertion. PHYSICAL EXAMINATION: Temperature 98.2, pulse 61, respiratory rate 17, blood pressure 161/80. No jugular venous distention. No thyromegaly, cervical lymphadenopathy. Moist mucous membranes. Lungs are diminished with expiratory wheezing. Heart: S1, S2, sinus rhythm. Abdomen is soft, nontender, nondistended. Extremities: No pitting edema. LABORATORY DATA: Hemoglobin 11, hematocrit 34, sodium 137, potassium 4.7, chloride 102, bicarbonate 30, BUN 27, creatinine 1.32, glucose 96. Input and output: Input 1170, output 1100. Positive 70. Weight is 83.3 kg from previous 87 kg. IMAGING STUDIES: Chest x-ray 02/15: Improved interstitial coarsening. Cardiac size is normal. Coronary stent unchanged. ASSESSMENT AND PLAN: 63-natal[age]-old with ischemic cardiomyopathy, moderate aortic stenosis, ejection fraction of 35-40%, high central venous pressure, anemia of unknown origin, hypertensive heart disease, hypothyroidism, diabetes, has been having recurrent anemia requiring blood transfusion, underwent EGD colonoscopy at [facility] by Dr. James, found to have antral erythema, mild internal hemorrhoids and transverse colonic polyps which were resected and sent for biopsy. He was also found to have B12 deficiency and hypothyroidism which were felt to have contributed to patient's anemia. On followup with Dr. Freeman, he was noted to have recurrent anemia with hemoglobin of 6.3 with complaints of shortness of breath and fatigue, weakness and went to [facility] for further workup and possible hematology consultation. CURRENT ISSUES: 1. Symptomatic anemia. Resolved. Hemoglobin is currently 11 after 4 units of red blood cell transfusion. Per Dr. Carmen, vp customer development identification and records commander, no reason to repeat EGD and colonoscopy. May do well with capsule endoscopy as outpatient. CT angiograph was recommended which was negative for source of bleeding. Per Dr. Monique Whitfield who was consulted by telephone, no need to see the patient acutely. His workup has not been completed. UPEP and SPEP to rule out myeloma. Haptoglobin LDH, Ju test to rule out hemolysis. Patient had stable hemoglobin and hematocrit since 4 units RBC transfusion has been given. Will rediscuss the case with Dr. Whitfield on Sunday. 2. Congestive heart failure exacerbation with reduced ejection fraction 35%, systolic diastolic dysfunction. Patient did have compensated heart failure secondary to severe anemia and hypertensive urgency which resolved after diuresis and blood transfusion, currently euvolemic unable to resume patient's lisinopril due to acute kidney injury with creatinine of 1.5 improving to 1.3 after Lasix and lisinopril were discontinued. 3. Moderate aortic stenosis. Currently monitoring patient's volume status clinically. Avoiding hypotension and hypovolemia due to increased risk of syncope, CHF and coronary ischemia. 4. Ischemic cardiomyopathy with a history of ST elevation [place], LAD stent April 2018. Had been on aspirin and Brilinta prior to admission but due to presumed GI bleed, aspirin and Brilinta were discontinued which was okay with patient's teaching artist Dr. Farooq who then recommended starting the patient on Plavix at least, still requires two more months of antiplatelet regimen, he is currently continued on atorvastatin and metoprolol. His lisinopril was discontinued temporarily due to acute kidney injury and will be resumed back once the patient's creatinine has improved. DISPOSITION: Unable to discharge today due to uncontrolled blood pressure and acute kidney injury. MTDD
[2019-02-16 14:00] VITALS: BP 121/58
[2019-02-16 19:05] LABS: CALCIUM LEVEL 8.7 MG/DL (8.8-10.2); CREATININE FOR GFR 1.37 MG/DL (0.70-1.30); GLOMERULAR FILTRATION RATE 55.5 (>49); POTASSIUM SERUM 4.5 MEQ/L (3.5-5.1)
[2019-02-16] MEDS: LEVEMIR (INSULIN DETEMIR) 1 UNITS/0.01ML SC SCH (21:11)
[2019-02-16] MEDS: ATORVASTATIN 20 MG TAB PO SCH (21:11)
[2019-02-16] MEDS: LEVOTHYROXINE 50MCG TABLET (0.05MG) PO SCH (21:14)
[2019-02-16] MEDS: TAMSULOSIN 0.4 MG CAP PO SCH (21:14)
[2019-02-16] MEDS: **NOTE PATIENT COMMENT** MISC XX SCH (21:16)
[2019-02-16 22:00] VITALS: BP 136/83
[2019-02-17 06:00] VITALS: BP 134/80
[2019-02-17 06:32] LABS: BLOOD UREA NITROGEN 27 MG/DL (7-18); CALCIUM LEVEL 8.9 MG/DL (8.8-10.2); CARBON DIOXIDE LEVEL 31 MEQ/L (21-32); CHLORIDE LEVEL 104 MEQ/L (98-107); CREATININE FOR GFR 1.21 MG/DL (0.70-1.30); GLOMERULAR FILTRATION RATE > 60.0 (>49); GLUCOSE, FASTING 111 MG/DL (70-100); SODIUM LEVEL 138 MEQ/L (136-145)
[2019-02-17] MEDS: SUCRALFATE SUSP 1GM/10ML UD PO SCH (07:30)
[2019-02-17] MEDS ORDERED: CLOP75TA2 PO (08:01)
[2019-02-17] MEDS ORDERED: [UNRECOGNIZED DRUG - CODE] XX (08:02)
[2019-02-17 09:00] VITALS: BP 134/80
[2019-02-17] MEDS: amLODIPine 5 MG TAB PO SCH (09:00)
[2019-02-17] MEDS: LIDOCAINE 5% (LIDODERM) PATCH TD SCH (09:00)
[2019-02-17] MEDS: METOPROLOL TART 25 MG TABLET PO SCH (09:00)
[2019-02-17] MEDS: MAGNESIUM CHLORIDE 64 MG TABCR (SLO MAG) PO SCH (09:25)
[2019-02-17] MEDS: HumaLOG INSULIN (NovoLOG) PER UNIT SC SCH (09:26)
[2019-02-17] MEDS: PANTOPRAZOLE 40MG INJ (PROTONIX) (C9113) IV SCH (09:26)
[2019-02-17] MEDS: POTASSIUM CHLORIDE 10 MEQ SR TABLET PO SCH (09:27)
[2019-02-17] MEDS: CLOPIDOGREL 75 MG TAB PO SCH (09:28)
[2019-02-17] MEDS ORDERED: CARA1TAB6 PO (10:54)
[2019-02-17] MEDS ORDERED: PRIL20TA2 PO (10:54)
--- NOTE | 2019-02-17 12:29 | DSES ---
DATE OF ADMISSION: 02/13/2019 DATE OF DISCHARGE: 02/17/2019 PRIMARY DISCHARGE DIAGNOSES: 1. Symptomatic anemia. 2. Congestive heart failure (CHF) exacerbation with reduced ejection fraction, systolic and diastolic dysfunction. 3. Moderate aortic stenosis. 4. Ischemic cardiomyopathy with history of ST elevation myocardial infarction, LAD placement in April 2018. 5. Acute kidney injury. DISCHARGE MEDICATIONS: - Plavix 75 mg daily - amlodipine 5 mg at night - atorvastatin 80 mg at night - vitamin B12 injection every 2 weeks - levothyroxine 50 mcg at night - Lisinopril 10 mg at night - metformin 1 gram twice a day - metoprolol 25 mg twice a day - tamsulosin 0.4 mg at night - Prilosec 20 mg daily - Carafate 1 gram by mouth before food and nightly The patient's Brilinta and aspirin were discontinued due to hemoglobin of 6 and presumed gastrointestinal bleed. HOSPITAL COURSE: This is a 63-year-old male who was seen at [facility] for acute anemia, hemoglobin of 6 in January 2019, status post esophagogastroduodenoscopy (EGD) and colonoscopy by Dr. James, showing antral erythema, internal hemorrhoids and colonic polyps, which were biopsied. The patient was transfused and discharged home. At that time, goat herder recommended Synthroid and vitamin B12 injections due to findings of hypothyroidism and B12 deficiency. The patient had been having increasing weakness and fatigue at home, went to see his primary care physician, who saw that his hemoglobin was again a 6 and the patient was referred to the emergency room for hematology consultation and possible GI workup. In the emergency room, the patient was found to have a hemoglobin of 6, he was transfused 4 units of blood. Per Dr. Monique Whitfield, goat herder provider relations rep on admission, continue with workup for hemolysis and myeloma, all of which were pending on the day of discharge. The patient remained with stable hemoglobin of 11 after stopping his aspirin and Brilinta. Dr. Farooq recommended starting on Plavix 75 mg daily as the patient's stent was short of one year on antiplatelet regimen. The patient did not have a bowel movement during this admission and hemoccult stool could not be obtained. Dr. Carmen, who was provider relations rep on admission, recommended capsule endoscopy and CT enterography during the hospital stay, capsule endoscopy as an outpatient. He recommended the patient to followup in [place] for that. The patient however refused to follow in [place] and would prefer to see someone in [place] and was thus referred to Dr. Carmen's office for capsule endoscopy for evaluation of occult GI bleed. He was placed on proton pump inhibitor during this admission, had no obvious gastrointestinal bleeding. CT enterography was negative for a source of bleed. The patient did develop some shortness of breath and was found to have decompensated systolic heart failure, treated with intravenous Lasix , which resolved. He did develop acute kidney injury, which improved after discontinuation of his Lisinopril temporarily, which was resumed subsequent to normalization of his creatinine. The patient was discharged in stable condition to followup with gastroenterology for capsule endoscopy to evaluate occult gastrointestinal bleed, followup with Dr. Monique Whitfield as previously scheduled regarding workup of his anemia for hemolysis and possible workup for myeloma. All of the workup is still pending on the day of discharge. LABORATORIES: On hospital discharge: White count 7.3, hemoglobin 11, hematocrit 34, platelet count of 332. Sodium 138, potassium 5, bicarbonate 104, BUN 27, creatinine 1.2. IMAGING STUDIES: CT enterography on 02/14/2019 shows cardiac enlargement, bilateral small pleural effusions, tiny cortical cyst in the left kidney, otherwise negative, moderate vascular calcification. Chest x-ray on 02/15/2019 shows interstitial coarsening has improved, cardiac size is normal, coronary artery stent noted and is unchanged. 02/14/2019 vascular congestion, diffuse interstitial edema, unchanged, mediastinal silhouette is unchanged, degenerative changes of the spine. 02/16/2019 interstitial coarsening has resolved, lung lino are clear. Time spent on discharge: 30 minutes. [facility]
[2019-02-18 11:57] LABS: ALBUMIN % 51.6 % (55.8-66.1); ALPHA-1-GLOBULIN % 6.2 % (2.9-4.9); ALPHA-1-GLOBULINS 0.38 GM/DL (0.17-0.41); ALPHA-2-GLOBULINS 0.89 GM/DL (0.42-0.99); ALPHA-2-GLOBULINS % 14.3 % (7.1-11.8); BETA-1-GLOBULINS 0.51 GM/DL (0.28-0.60); BETA-1-GLOBULINS % 8.3 % (4.7-7.2); BETA-2-GLOBULINS % 6.5 % (3.2-6.5); GAMMA GLOBULIN % 13.1 % (11.1-18.8); GAMMA GLOBULINS 0.81 GM/DL (0.65-1.58)
[2019-02-20 11:07] LABS: UPEP INTERPRETATION NO M-SPIKE NOTED; URINE VOLUME RANDOM ML
== END 2019-02-17 10:17 | disposition home or self-care (01) | DRG 811 ==
LOC: M ED 09:43 → M ED INP 09:44 → OBSVTOIN 14:22 → M PCU 15:06 → M MSPAV 02-15 15:40
PROVIDERS: ADMIT General Practice; ATTEND General Practice
PROC: 30233N1 Transfusion of Nonautologous Red Blood Cells into Peripheral Vein, Percutaneous Approach (ICD-10-PCS; principal; 2019-02-13)
DX: D50.0 Iron deficiency anemia secondary to blood loss (chronic) (principal); I50.43 Acute on chronic combined systolic (congestive) and diastolic (congestive) heart failure; N17.9 Acute kidney failure, unspecified; K92.2 Gastrointestinal hemorrhage, unspecified; K29.70 Gastritis, unspecified, without bleeding; I16.0 Hypertensive urgency; I08.0 Rheumatic disorders of both mitral and aortic valves; I25.2 Old myocardial infarction; I25.5 Ischemic cardiomyopathy; Z79.899 Other long term (current) drug therapy; E03.9 Hypothyroidism, unspecified; E78.5 Hyperlipidemia, unspecified; E11.65 Type 2 diabetes mellitus with hyperglycemia; Z95.2 Presence of prosthetic heart valve; Z96.641 Presence of right artificial hip joint; Z96.642 Presence of left artificial hip joint; I11.0 Hypertensive heart disease with heart failure; I27.20 Pulmonary hypertension, unspecified; Z79.82 Long term (current) use of aspirin; E53.8 Deficiency of other specified B group vitamins; E87.6 Hypokalemia; E83.42 Hypomagnesemia

== ENCOUNTER 2019-03-10 08:12 | Emergency (ER) | payer MEDICARE ==
[~2019-03-10] VITALS: Ht 180.3 cm; Wt 88.6 kg
[~2019-03-10 08:12] MED LIST: AMLO5TAB6 PO; ASPI81TA33 PO; ATOR1TAB21; ATOR80TA59 PO; BRIL90TA PO; CARA1TAB6 PO; CLOP75TA2; CLOP75TA2 PO; CYAN1000VL INJ; LEVO50TA5 PO; LISI10TA4 PO; METF10004 PO; METO1TAB87 PO; PRIL20TA2 PO; TAMS1CAP17 PO; TELM1TAB; [UNRECOGNIZED DRUG - CODE] XX
[2019-03-10] MEDS ORDERED: PREDOPD (08:22)
[2019-03-10] MEDS ORDERED: PLAV1TAB2 (08:22)
[2019-03-10] MEDS ORDERED: ATOR1TAB21 (08:22)
[2019-03-10 09:46] LABS: BASO # 0.1 10^3/uL (0.0-0.2); BASO % 0.6 % (0.0-1.0); EOS # 0.2 10^3/uL (0.0-0.5); EOS % 2.7 % (0.0-3.0); HEMATOCRIT 31.9 % (42.0-52.0); HEMOGLOBIN 10.2 g/dl (13.5-17.5); LYMPH % 25.3 % (24.0-44.0); MEAN CORPUSCULAR HEMOGLOBIN 29.4 pg (27.0-33.0); MEAN CORPUSCULAR VOLUME 91.9 fl (80.0-96.0); MONO # 0.7 10^3/uL (0.0-0.8); MONO % 8.3 % (0.0-5.0); NEUTROPHILS % 62.6 % (36.0-66.0); PLATELET COUNT, AUTOMATED 297 10^3/uL (150-450); RED BLOOD COUNT 3.47 10^6/uL (4.30-6.10); WHITE BLOOD COUNT 8.1 10^3/uL (4.0-10.0)
--- NOTE | 2019-03-10 09:47 | REP ---
Clinical: Acute chest pain and lethargy . Comparison: 02/15/2019 . Technique: PA and lateral. Findings: The mediastinum and cardiac silhouette are normal. The lung lino are clear and without acute consolidation, effusion, or pneumothorax. The skeletal structures are intact and normal. Impression: 1. No acute cardiopulmonary process. Electronically Signed by Vladislav Wilson MD 03/10/2019 09:39 A
[2019-03-10 09:57] LABS: INR 1.04; PROTHROMBIN TIME 13.3 SECONDS (11.8-14.0)
[2019-03-10 10:33] LABS: ALBUMIN 2.8 GM/DL (3.2-5.2); ALT/SGPT 17 U/L (12-78); BILIRUBIN,DIRECT < 0.1 MG/DL (0.0-0.2); BILIRUBIN,TOTAL 0.6 MG/DL (0.2-1.0); BLOOD UREA NITROGEN 16 MG/DL (7-18); CALCIUM LEVEL 8.6 MG/DL (8.8-10.2); CARBON DIOXIDE LEVEL 26 MEQ/L (21-32); CHLORIDE LEVEL 104 MEQ/L (98-107); CK-MB VALUE MASS 2.4 NG/ML (<3.6); CPK CREATINE PHOSPHOKINASE 144 U/L (39-308); CREATININE FOR GFR 1.04 MG/DL (0.70-1.30); GLOMERULAR FILTRATION RATE > 60.0 (>49); GLUCOSE, FASTING 179 MG/DL (70-100); LIPASE 158 U/L (73-393); MB/CK RELATIVE INDEX 1.67 (< OR =4); NT-PRO BNP 6155 PG/ML (<125); POTASSIUM SERUM 5.1 MEQ/L (3.5-5.1); SODIUM LEVEL 140 MEQ/L (136-145); TOTAL PROTEIN 6.3 GM/DL (6.4-8.2); TROPONIN I 0.04 NG/ML (< 0.10)
[2019-03-10] MEDS ORDERED: ISOVUE-370 76% 100ML VIAL (Q9967) As Ordered ONE (11:08)
--- NOTE | 2019-03-10 11:34 | REP ---
Clinical: Acute chest pain. Technique: Axial contrast enhanced images from the thoracic inlet to the upper abdomen using pulmonary embolus technique with 100 ml Isovue 370 intravenous contrast material. Multiplanar re-formations obtained. Findings: Satisfactory enhancement of the pulmonary vasculature is achieved and no filling defects are identified to suggest pulmonary embolus. Atherosclerotic changes to the thoracic aorta and coronary arteries noted without aortic aneurysm. Evidence for cardiomegaly as well as prior CABG/coronary stenting. No pericardial effusion. Lung lino demonstrate small pleural effusions and trace bibasilar atelectasis. Tracheobronchial tree is patent. Impression: 1. No evidence for pulmonary embolus. 2. Small bilateral pleural effusions and bibasilar atelectasis. Electronically Signed by Vladislav Wilson MD 03/10/2019 11:25 A
[2019-03-10 15:42] LABS: CK-MB VALUE MASS 2.2 NG/ML (<3.6); MB/CK RELATIVE INDEX 3.01 (< OR =4); TROPONIN I 0.05 NG/ML (< 0.10)
[2019-03-10 16:30] VITALS: BP 194/87
--- NOTE | 2019-03-10 20:26 | ECGEPIP ---
[facility] - ED Test Date: 2019-03-10 Pat Name: DIA MICHAEL Department: Room: - Gender: Male Boom Master: denita : 1955 Requested By: Mackenzie Obrien Order Number: [id number] Reading MD: Lisbeth Echeverria Measurements Intervals [place] Rate: 66 P: -81 [place]: 180 QRS: -35 QRSD: 124 T: 111 QT: 437 QTc: 461 Interpretive Statements ECTOPIC ATRIAL RHYTHM WITH OCCASIONAL VENTRICULAR PREMATURE COMPLEXES MARKED LEFT AXIS DEVIATION POSSIBLE RIGHT VENTRICULAR CONDUCTION DELAY ANTEROLATERAL MYOCARDIAL INFARCTION, OF INDETERMINATE AGE NONSPECIFIC ST T WAVE CHANGES CW 02/13/[address] T WAVE CHANGES NOW ECTOPIC ATRIAL RHTYHM CLINCAL CORRELATION ADVISED Electronically Signed on 03-10-2019 20:26:02 EDT by Lisbeth Echeverria
--- NOTE | 2019-03-10 20:38 | ECGEPIP ---
[facility] - ED Test Date: 2019-03-10 Pat Name: DIA MICHAEL Department: Room: - Gender: Male Mill Beam Fitter: AGGIE : 1955 Requested By: Mackenzie Obrien Order Number: [id number] Reading MD: Lisbeth Echeverria Measurements Intervals [place] Rate: 57 P: -87 [place]: 197 QRS: -36 QRSD: 111 T: 113 QT: 455 QTc: 444 Interpretive Statements ECTOPIC ATRIAL BRADYCARDIA MARKED LEFT AXIS DEVIATION ANTERIOLATERAL MYOCARDIAL INFARCTION, OF INDETERMINATE AGE MODERATE T-WAVE ABNORMALITY, CONSIDER LATERAL ISCHEMIA POSSIBLE RIGHT VENTRICULAR CONDUCTION DELAY CW 03/10/19 RATE DECREASED [facility] Electronically Signed on 03-10-2019 20:38:24 EDT by Lisbeth Echeverria
--- NOTE | 2019-03-11 10:36 | ED PDOC ---
Post-Departure Follow-Up dr philippe faxed formal report of cta chest for fu Lisbeth Ellsworth MD Mar 11, 2019 10:36
== END 2019-03-10 16:55 | disposition home or self-care (01) ==
LOC: M ED 08:12
DX: R07.89 Other chest pain (principal); J91.8 Pleural effusion in other conditions classified elsewhere; R06.00 Dyspnea, unspecified; R94.31 Abnormal electrocardiogram [ECG] [EKG]; E11.9 Type 2 diabetes mellitus without complications; I10 Essential (primary) hypertension; E78.5 Hyperlipidemia, unspecified; E07.9 Disorder of thyroid, unspecified; I05.1 Rheumatic mitral insufficiency; Z79.890 Hormone replacement therapy; Z79.899 Other long term (current) drug therapy; Z79.01 Long term (current) use of anticoagulants
CPT/HCPCS: 71046; 71275; 80048; 80076; 82550; 82553; 83690; 83880; 84443; 84484; 85025; 85610; 86850; 86900; 86901; 93005; 93041; 94760; 99285; Q9967

== ENCOUNTER 2019-03-13 12:21 | Outpatient (CLI) | payer MEDICARE ==
[~2019-03-13] VITALS: Ht 180.3 cm; Wt 89.9 kg
[2019-03-13] VITALS (8 sets, daily range): BP systolic 138–155; BP diastolic 67–80
[~2019-03-13 12:21] MED LIST changes: +PLAV1TAB2; +PREDOPD
[2019-03-13] MEDS ORDERED: ACETAMINOPHEN TAB 650MG DOSE (2X325MG) PO ONE (13:00)
[2019-03-13] MEDS ORDERED: diphenhydrAMINE 50 MG CAP PO ONE (13:00)
== END 2019-03-13 17:45 | disposition home or self-care (01) ==
LOC: M INFU 12:21
PROVIDERS: ATTEND Internal Medicine Medical Oncology
DX: D64.9 Anemia, unspecified (principal)
CPT/HCPCS: 36415; 36430; 82607; 82668; 82784; 82787; 85027; 86335; 86850; 86900; 86901; 86920; 88300; G0463; P9016

== ENCOUNTER 2019-04-05 12:40 | Inpatient (IN) | payer MEDICARE ==
[2019-04-05] VITALS (13 sets, daily range): BP systolic 141–182; BP diastolic 67–96
[~2019-04-05] VITALS: Ht 180.3 cm; Wt 86.7 kg
[~2019-04-05 12:40] MED LIST changes: +ATOR1TAB21 PO; -PLAV1TAB2; +PLAV1TAB2 PO; -PREDOPD; +PREDOPD OU
[2019-04-05 13:30] LABS: BASO % 0.6 % (0.0-1.0); EOS # 0.2 10^3/uL (0.0-0.5); EOS % 2.6 % (0.0-3.0); LYMPH # 1.8 10^3/uL (1.5-5.0); LYMPH % 25.9 % (24.0-44.0); MEAN CORPUSCULAR HGB CONC 31.4 g/dl (32.0-36.5); MEAN CORPUSCULAR VOLUME 95.7 fl (80.0-96.0); MONO # 0.7 10^3/uL (0.0-0.8); MONO % 9.6 % (0.0-5.0); NEUTROPHILS # 4.3 10^3/uL (1.5-8.5); NEUTROPHILS % 61.2 % (36.0-66.0); PLATELET COUNT, AUTOMATED 348 10^3/uL (150-450)
[2019-04-05 13:33] LABS: HEMOGLOBIN 6.9 g/dl (13.5-17.5)
--- NOTE | 2019-04-05 13:36 | REP ---
HISTORY: Dyspnea. COMPARISON: Multiple, the latest 03/10/2019. There is cardiomegaly accentuated by technique. There is a diffuse increase in the interstitial markings accentuated by technique. There is minimal bilateral CP angle blunting. The osseous structures are unchanged. IMPRESSION: Interstitial edema. Electronically Signed by Corwin Collado DO 04/05/2019 02:47 P
[2019-04-05 13:55] LABS: CK-MB VALUE MASS 2.3 NG/ML (<3.6); MB/CK RELATIVE INDEX 2.42 (< OR =4); TROPONIN I 0.02 NG/ML (< 0.10)
[2019-04-05 13:56] LABS: PERCENT SATURATION 12.7 % (19.7-50.0)
[2019-04-05 14:02] LABS: BLOOD UREA NITROGEN 25 MG/DL (7-18); CALCIUM LEVEL 8.2 MG/DL (8.8-10.2); CARBON DIOXIDE LEVEL 29 MEQ/L (21-32); CHLORIDE LEVEL 104 MEQ/L (98-107); CREATININE FOR GFR 1.11 MG/DL (0.70-1.30); FREE T4 1.11 NG/DL (0.76-1.46); GLOMERULAR FILTRATION RATE > 60.0 (>49); GLUCOSE, FASTING 171 MG/DL (70-100); SODIUM LEVEL 140 MEQ/L (136-145)
[2019-04-05] MEDS ORDERED: ACET1TAB55 PO (14:16)
[2019-04-05] MEDS ORDERED: SYNT100T PO (14:16)
[2019-04-05] MEDS ORDERED: DEXTROSE 50% 50 ML SYRINGE IV PRN (14:45)
[2019-04-05] MEDS ORDERED: GLUCAGON FOR INJ 1 MG VIAL (J1610) SC PRN (14:45)
[2019-04-05] MEDS ORDERED: GLUCOSE 4 GM CHEW TABLET PO PRN (14:45)
--- NOTE | 2019-04-05 14:57 | ECGEPIP ---
[facility] - ED Test Date: 2019-04-05 Pat Name: DIA MICHAEL Department: Room: - Gender: Male Lay Out Inspector: ELISHA : 1955 Requested By: Osmar Worley Order Number: [id number] Reading MD: Lisbeth Echeverria Measurements Intervals [place] Rate: 74 P: -67 [place]: 200 QRS: -21 QRSD: 125 T: 97 QT: 416 QTc: 462 Interpretive Statements ECTOPIC ATRIAL RHYTHM ANTERIOR MYOCARDIAL INFARCTION, OF INDETERMINATE AGE LAD MODERATE T WAVE ABNORMALITY, CONSIDER LATERAL ISCHEMIA POSSIBLE RIGHT VENTRICULAR CONDUCTION DELAY CW 03/10/[address] T WAVE CHANGS Electronically Signed on 04-05-2019 14:57:09 EST by Lisbeth Echeverria
--- NOTE | 2019-04-05 15:05 | HPEPDOC ---
[facility] Medical History & Physical Date of Admission Apr 05, 2019 Date of Service: Apr 05, 2019 Attending Physician: STEPHANIE SWAIN MD History and Physical CHIEF COMPLAINT: Fatigue, shortness of breath HISTORY OF PRESENT ILLNESS: 64-year-old male with past medical history of CHF, moderate aortic stenosis, coronary artery disease status post MN and stent placement 4, diabetes mellitus, hypertension, hypothyroidism, presents with shortness of breath and fatigue. Patient has had multiple admissions over the past month for progressive symptomatically anemia without an obvious source. Patient was previously admitted 3 weeks ago for the same reason, had an extensive workup including EGD/colonoscopy/hemolysis workup/malignancy workup, which all returned negative. Patient has been following up with hematology oncology in the outpatient setting, scheduled to have bone marrow biopsy next Sunday. Patient has never had any GI bleeding, denies hematemesis or hematochezia at this time. In the ED is found to have a hemoglobin of 6.9, scheduled to receive 3 units of packed red blood cells. He denies any chest pain, nausea, vomiting, abdominal pain or diarrhea at this time. 10 point review of system is negative except for above PAST MEDICAL HISTORY: 1. CHF. 2. Moderate Aortic stenosis. 3. Coronary artery disease. 4. Hypertension. 5. MN 6. Diabetes mellitus. 7. Hypothyroidism PAST SURGICAL HISTORY: 1. Bilateral hip replacement. SOCIAL HISTORY: Ever smoker. Denies alcohol use. Smokes marijuana FAMILY HISTORY: Positive for heart disease ALLERGIES: Please see below. HOME MEDICATIONS: Please see below. PHYSICAL EXAMINATION: VITAL SIGNS: Please see below. GENERAL: No distress HEENT: Normocephalic, atraumatic, moist mucous membranes NECK: Supple CARDIOVASCULAR EXAMINATION: S1, S2, no murmurs RESPIRATORY EXAMINATION: Clear to auscultation, no wheezing ABDOMINAL EXAMINATION: Soft, nontender, nondistended, positive bowel sounds EXTREMITIES: Range of motion intact SKIN: No rash NEUROLOGICAL EXAMINATION: Alert and oriented 3, no focal deficits PSYCHIATRIC EXAMINATION: Calm and cooperative LABORATORY DATA: See below. MICROBIOLOGY: Please see below. ASSESSMENT: 64-year-old male with an extensive medical history, presents with symptomatic anemia, which is been ongoing for a few months, workup underway in the outpatient setting. PLAN: 1. Symptomatic anemia. Unknown etiology, recently admitted for the same thing, extensive workup including EGD, colonoscopy hemolysis/malignancy workup has been negative so far, scheduled for outpatient bone marrow biopsy on Sunday. Given recent workup, no signs of changes to clinical presentation including bleed/hemolysis will not order an extensive workup at this time. Scheduled to receive 3 units of packed red blood cells in the ED, will trend H&H and transfuse as needed, will discuss with hematology if patient should have bone marrow biopsy and patient versus outpatient. 2. CHF. Stable, continue home meds, will monitor volume status with blood transfusions. 3. Aortic stenosis. No history of AV malformation, is supposed to have outpatient capsule endoscopy, not done yet. 4. Coronary artery disease Status post MN and stent placement 4, last stent 1 year ago. Stable, continue optimal medical management (Plavix, statin, beta davin). 5. Diabetes mellitus. Hold metformin, sliding scale insulin before meals and at bedtime. 6. Hypertension. Continue Norvasc, lisinopril and beta davin. 7. Hypothyroidism. Continue levothyroxine DVT prophylaxis: Heparin subcutaneous GI prophylaxis: Not needed Vital Signs Vital Signs Date Time Temp Pulse Resp B/P (MAP) Pulse Ox O2 Delivery O2 Flow Rate FiO2 04/05/19 14:40 76 96 Room Air 04/05/19 13:56 160/74 (102) Laboratory Data Labs 24H Laboratory Tests 2 04/05/19 13:13: Immature Granulocyte % (Auto) 0.1, Neutrophils (%) (Auto) 61.2, Lymphocytes (%) (Auto) 25.9, Monocytes (%) (Auto) 9.6H, Eosinophils (%) (Auto) 2.6, Basophils ( %) (Auto) 0.6, Neutrophils # (Auto) 4.3, Lymphocytes # (Auto) 1.8, Monocytes # (Auto) 0.7, Eosinophils # (Auto) 0.2, Basophils # (Auto) 0.0, Reticulocyte # (auto) 97.7H, Nucleated Red Blood Cells % (auto) 0.0, Percent Reticulocyte Count 4.2H, Reticulocyte Hemoglobin Equivalent 30.5, Anion Gap 7L, Glomerular Filtration Rate > 60.0, Calcium Level 8.2L, Total Creatine Kinase 95, Creatine Kinase MB 2.3, Creatine Kinase MB Relative Index 2.42, Troponin I 0.02, SF-Rto-G-Type Natriuretic Peptide 5571H, Thyroid Stimulating Hormone (TSH) 14.400H, Free Thyroxine 1.11 04/05/19 13:14: Iron Level 41L, Total Iron Binding Capacity 322, Transferrin % Saturation 12.7L, Ferritin 64 CBC/BMP Laboratory Tests 04/05/19 13:13 Home Medications Scheduled Amlodipine Besylate (Amlodipine Besylate) 5 Mg Tablet, 5 MG PO QHS Atorvastatin Calcium (Atorvastatin Calcium) 20 Mg Tablet, 20 MG PO QHS Clopidogrel Bisulfate (Plavix) 75 Mg Tablet, 75 MG PO DAILY Cyanocobalamin (Cyanocobalamin Injection) 1,000 Mcg/1 Ml Vial, 1,000 MCG INJ Q2WK ON HOLD; PT'S LEVELS ARE STABLE Levothyroxine Sodium (Synthroid) 100 Mcg Tablet, 100 MCG PO DAILY Lisinopril (Lisinopril) 10 Mg Tablet, 10 MG PO QHS Metformin HCl (Metformin HCl) 1,000 Mg Tablet, 1,000 MG PO BID Metoprolol Tartrate (Metoprolol Tartrate) 25 Mg Tablet, 25 MG PO QHS Prednisolone Acetate (Prednisolone Acetate 1% Opth Susp) 5 Ml Drops.susp, 1 DROP OU BID Tamsulosin Hcl (Tamsulosin HCl) 0.4 Mg Capsule, 0.4 MG PO QHS Scheduled PRN Acetaminophen (Acetaminophen) 325 Mg Tablet, 1,300 MG PO BID PRN for PAIN / FEVER Allergies Coded Allergies: No Known Allergies (Unverified , 02/13/19) A-FIB/CHADSVASC A-FIB History Current/History of A-Fib/PAF?: No STEPHANIE SWAIN MD Apr 05, 2019 15:05
[2019-04-05] MEDS: CLOPIDOGREL 75 MG TAB PO SCH (18:31)
[2019-04-05] MEDS: HumaLOG INSULIN (NovoLOG) PER UNIT SC SCH ×2 (18:31→20:44)
[2019-04-05] MEDS: TAMSULOSIN 0.4 MG CAP PO SCH (20:45)
[2019-04-05] MEDS: FERROUS SULFATE 325MG TAB PO SCH (20:45)
[2019-04-05] MEDS: ATORVASTATIN 20 MG TAB PO SCH (20:45)
[2019-04-05] MEDS: METOPROLOL TART 25 MG TABLET PO SCH (20:46)
[2019-04-05] MEDS: amLODIPine 5 MG TAB PO SCH (20:47)
[2019-04-05] MEDS: LISINOPRIL 10 MG TAB PO SCH (20:47)
[2019-04-05] MEDS: HEPARIN SOD (PORCINE) 5000 UNITS/ML VIAL SC SCH (20:48)
[2019-04-05] MEDS: prednisoLONE ACET 1% OPHTH SUSP 5ML OU SCH (20:48)
[2019-04-06] VITALS (8 sets, daily range): BP systolic 133–175; BP diastolic 72–84
[2019-04-06] MEDS: ACETAMINOPHEN 325 MG TAB PO PRN ×2 (02:33→22:04)
[2019-04-06] MEDS ORDERED: FUROSEMIDE 40 MG/4 ML VIAL (J1940) IV ONE (04:45)
[2019-04-06 04:57] LABS: HEMATOCRIT 28.8 % (42.0-52.0); MEAN CORPUSCULAR HEMOGLOBIN 29.8 pg (27.0-33.0); MEAN CORPUSCULAR HGB CONC 32.3 g/dl (32.0-36.5); MEAN CORPUSCULAR VOLUME 92.3 fl (80.0-96.0); PLATELET COUNT, AUTOMATED 300 10^3/uL (150-450); RED BLOOD COUNT 3.12 10^6/uL (4.30-6.10); WHITE BLOOD COUNT 7.3 10^3/uL (4.0-10.0)
[2019-04-06 04:58] LABS: HEMOGLOBIN 9.3 g/dl (13.5-17.5)
[2019-04-06] MEDS: LEVOTHYROXINE 100MCG TABLET (0.1MG) PO SCH (05:02)
[2019-04-06 05:23] LABS: ALBUMIN 2.4 GM/DL (3.2-5.2); ALT/SGPT 13 U/L (12-78); BILIRUBIN,TOTAL 1.9 MG/DL (0.2-1.0); BLOOD UREA NITROGEN 21 MG/DL (7-18); CALCIUM LEVEL 8.6 MG/DL (8.8-10.2); CARBON DIOXIDE LEVEL 26 MEQ/L (21-32); CHLORIDE LEVEL 106 MEQ/L (98-107); GLOMERULAR FILTRATION RATE > 60.0 (>49); GLUCOSE, FASTING 133 MG/DL (70-100); MAGNESIUM LEVEL 1.5 MG/DL (1.8-2.4); NT-PRO BNP 7281 PG/ML (<125); POTASSIUM SERUM 3.9 MEQ/L (3.5-5.1); SODIUM LEVEL 141 MEQ/L (136-145)
[2019-04-06] MEDS ORDERED: MAGNESIUM OXIDE 400 MG TAB (MAG-OX) PO ONE (06:30)
[2019-04-06] MEDS: HumaLOG INSULIN (NovoLOG) PER UNIT SC SCH ×4 (07:30→21:00)
[2019-04-06 09:17] LABS: LDH LACTATE DEHYDROGENASE 170 U/L (87-241)
[2019-04-06] MEDS: CLOPIDOGREL 75 MG TAB PO SCH (10:06)
[2019-04-06] MEDS: FERROUS SULFATE 325MG TAB PO SCH ×2 (10:06→21:59)
[2019-04-06] MEDS: prednisoLONE ACET 1% OPHTH SUSP 5ML OU SCH ×2 (10:06→22:02)
[2019-04-06] MEDS: MAG SULF 1GM/100ML (MAG RUN) 1 GM in IV 1 EA IV SCH ×4 (10:07→12:00)
[2019-04-06] MEDS: HEPARIN SOD (PORCINE) 5000 UNITS/ML VIAL SC SCH ×2 (10:07→22:01)
--- NOTE | 2019-04-06 11:48 | REP ---
CT OF THE CHEST WITHOUT CONTRAST: REASON: Hemoptysis. COMPARISON: 03/10/2019 The lack of intravenous contrast decreases the sensitivity of the exam. There are multiple borderline to mildly enlarged mediastinal lymph nodes. Borderline to mildly enlarged hilar lymph nodes cannot be ruled out due to lack of intravenous contrast administration. There are bilateral pleural effusions which have increased in size from the prior exam. There is no pericardial effusion. There is no change in the appearance of the imaged upper abdomen or imaged osseous structures. Evaluation of the lung lino show patchy and asymmetric bibasilar opacities likely secondary to compressive subsegmental atelectatic changes. The lung lino are otherwise unchanged. Scattered ground-glass opacities are noted likely secondary to subsegmental atelectatic changes. IMPRESSION: 1. Mediastinal lymph nodes and exam limitations as described above. 2. Bilateral pleural effusions have increased from the prior exam. 3. Bibasilar opacities likely subsegmental atelectatic changes, basilar pneumonia cannot be ruled out and should be correlated clinically. 4. Other findings as described above. Electronically Signed by Corwin Collado DO 04/06/2019 12:16 P
[2019-04-06] MEDS ORDERED: FUROSEMIDE 40 MG/4 ML VIAL (J1940) IV SCH (12:00)
[2019-04-06 12:15] LABS: HEMATOCRIT 31.1 % (42.0-52.0)
[2019-04-06] MEDS: FUROSEMIDE 40 MG/4 ML VIAL (J1940) IV SCH (17:00)
--- NOTE | 2019-04-06 19:40 | IPNPDOC ---
Date Seen The patient was seen on 04/06/19. Progress Note HISTORY OF PRESENT ILLNESS: 64-year-old male with past medical history of CHF, moderate aortic stenosis, coronary artery disease status post MA and stent placement 4, diabetes mellitus, hypertension, hypothyroidism, presents with shortness of breath and fatigue. Patient has had multiple admissions over the past month for progressive symptomatically anemia without an obvious source. Patient was previously admitted 3 weeks ago for the same reason, had an extensive workup including EGD/colonoscopy/hemolysis workup/malignancy workup, which all returned negative. Patient has been following up with hematology oncology in the outpatient setting, scheduled to have bone marrow biopsy next Sunday. Patient has never had any GI bleeding, denies hematemesis or hematochezia at this time. In the ED is found to have a hemoglobin of 6.9, scheduled to receive 3 units of packed red blood cells. He denies any chest pain, nausea, vomiting, abdominal pain or diarrhea at this time. 04/06/2019 Patient short of breath overnight, received IV Lasix with improvement in shortness of breath. He also reports hemoptysis, initial episode, 3-4 tablespoons of blood tinged sputum. He is currently resting comfortably, denies any significant short of breath, chest pain, nausea, vomiting, abdominal pain or diarrhea. 10 point review of system is negative except for above PHYSICAL EXAMINATION: VITAL SIGNS: Please see below. GENERAL: No distress HEENT: Normocephalic, atraumatic, moist mucous membranes NECK: Supple CARDIOVASCULAR EXAMINATION: S1, S2, no murmurs RESPIRATORY EXAMINATION: Clear to auscultation, no wheezing ABDOMINAL EXAMINATION: Soft, nontender, nondistended, positive bowel sounds EXTREMITIES: Range of motion intact SKIN: No rash NEUROLOGICAL EXAMINATION: Alert and oriented 3, no focal deficits PSYCHIATRIC EXAMINATION: Calm and cooperative LABORATORY DATA: See below. MICROBIOLOGY: Please see below. ASSESSMENT: 64-year-old male with an extensive medical history, presents with symptomatic anemia, which is been ongoing for a few months, workup underway in the outpatient setting. PLAN: 1. Symptomatic anemia. Unknown etiology, recently admitted for the same thing, extensive workup including EGD, colonoscopy hemolysis/malignancy workup has been negative so far, scheduled for outpatient bone marrow biopsy on Sunday. Status post 3 units of packed red blood cells, with subsequent volume overload, treated with IV Lasix, improvement noted, CT chest obtained due to hemoptysis, remains volume overloaded with bilateral pleural effusions, continue IV Lasix 40 mg twice a day for now. H&H stable, will monitor, elevated bilirubin noted with reticulocytosis, hemolytic workup ordered. 2. CHF. continue home meds, became volume overloaded after blood transfusions, continue IV Lasix. 3. Aortic stenosis. No history of AV malformation, is supposed to have outpatient capsule endoscopy, not done yet. 4. Coronary artery disease Status post MA and stent placement 4, last stent 1 year ago. Stable, continue optimal medical management (Plavix, statin, beta davin). 5. Diabetes mellitus. Hold metformin, sliding scale insulin before meals and at bedtime. 6. Hypertension. Continue Norvasc, lisinopril and beta davin. 7. Hypothyroidism. Continue levothyroxine DVT prophylaxis: Heparin subcutaneous GI prophylaxis: Not needed VS, I&O, 24H, Fishbone Vital Signs/I&O Vital Signs Date Time Temp Pulse Resp B/P (MAP) Pulse Ox O2 Delivery O2 Flow Rate FiO2 04/06/19 16:00 97.7 69 18 133/72 (92) 94 Room Air I&O- Last 24 Hours up to 6 AM 04/06/19 05:59 Intake Total 2311 ml Balance 2311 ml Laboratory Data 24H LABS Laboratory Tests 2 04/05/19 20:42: Bedside Glucose (Misc Panel) 142H 04/06/19 04:37: Nucleated Red Blood Cells % (auto) 0.0, Anion Gap 9, Glomerular Filtration Rate > 60.0, Calcium Level 8.6L, Magnesium Level 1.5L, Total Bilirubin 1.9H, Aspartate Amino Transf (AST/SGOT) 13, Alanine Aminotransferase (ALT/SGPT) 13, Alkaline Phosphatase 97, Lactate Dehydrogenase 170, ES-Hhb-R-Type Natriuretic Peptide 7281H, Total Protein 6.0L, Albumin 2.4L, Albumin/Globulin Ratio 0.67L 04/06/19 11:53: 04/06/19 12:20: Bedside Glucose (Misc Panel) 209H 04/06/19 17:24: Bedside Glucose (Misc Panel) 148H CBC/BMP Laboratory Tests 04/06/19 04:37 04/06/19 11:53 STEPHANIE SWAIN MD Apr 06, 2019 19:40
[2019-04-06] MEDS: METOPROLOL TART 25 MG TABLET PO SCH (22:00)
[2019-04-06] MEDS: TAMSULOSIN 0.4 MG CAP PO SCH (22:00)
[2019-04-06] MEDS: ATORVASTATIN 20 MG TAB PO SCH (22:00)
[2019-04-06] MEDS: amLODIPine 5 MG TAB PO SCH (22:01)
[2019-04-06] MEDS: LISINOPRIL 10 MG TAB PO SCH (22:01)
[2019-04-06] MEDS ORDERED: SLF 3 ML SYR IV PRN (22:15)
[2019-04-07] VITALS: BP 125/68
[2019-04-07 04:00] VITALS: BP 152/78
[2019-04-07] MEDS: LEVOTHYROXINE 100MCG TABLET (0.1MG) PO SCH (05:41)
[2019-04-07] MEDS ORDERED: SLF 3 ML SYR IV SCH (06:00)
[2019-04-07 07:52] LABS: BLOOD UREA NITROGEN 20 MG/DL (7-18); CALCIUM LEVEL 8.5 MG/DL (8.8-10.2); CARBON DIOXIDE LEVEL 28 MEQ/L (21-32); CHLORIDE LEVEL 105 MEQ/L (98-107); CREATININE FOR GFR 0.98 MG/DL (0.70-1.30); GLOMERULAR FILTRATION RATE > 60.0 (>49); GLUCOSE, FASTING 127 MG/DL (70-100); HEMATOCRIT 29.8 % (42.0-52.0); HEMOGLOBIN 9.4 g/dl (13.5-17.5); MAGNESIUM LEVEL 2.3 MG/DL (1.8-2.4); MEAN CORPUSCULAR HEMOGLOBIN 29.3 pg (27.0-33.0); MEAN CORPUSCULAR HGB CONC 31.5 g/dl (32.0-36.5); MEAN CORPUSCULAR VOLUME 92.8 fl (80.0-96.0); PHOSPHORUS LEVEL 3.8 MG/DL (2.5-4.9); PLATELET COUNT, AUTOMATED 318 10^3/uL (150-450); POTASSIUM SERUM 3.7 MEQ/L (3.5-5.1); RED BLOOD COUNT 3.21 10^6/uL (4.30-6.10); SODIUM LEVEL 141 MEQ/L (136-145); WHITE BLOOD COUNT 6.8 10^3/uL (4.0-10.0)
[2019-04-07 08:00] VITALS: BP 144/74
[2019-04-07] MEDS: HEPARIN SOD (PORCINE) 5000 UNITS/ML VIAL SC SCH (08:28)
[2019-04-07] MEDS: HumaLOG INSULIN (NovoLOG) PER UNIT SC SCH (08:28)
[2019-04-07] MEDS: FUROSEMIDE 40 MG/4 ML VIAL (J1940) IV SCH (08:29)
[2019-04-07] MEDS: FERROUS SULFATE 325MG TAB PO SCH (08:29)
[2019-04-07] MEDS: CLOPIDOGREL 75 MG TAB PO SCH (08:29)
[2019-04-07] MEDS: prednisoLONE ACET 1% OPHTH SUSP 5ML OU SCH (08:29)
[2019-04-07] MEDS ORDERED: POTASSIUM CHLORIDE 10 MEQ SR TABLET PO SCH (09:00)
[2019-04-07 11:16] LABS: VITAMIN B12 LEVEL 395 PG/ML (247-911)
[2019-04-07] MEDS ORDERED: POTA10808 PO (11:30)
[2019-04-07] MEDS ORDERED: LASI20TA3 PO (11:30)
--- NOTE | 2019-04-07 11:35 | DS.PDOC ---
Discharge Summary General Date of Admission Apr 05, 2019 at 14:45 Date of Discharge 04/07/19 Attending Physician: STEPHANIE SWAIN MD Discharge Summary PROCEDURES PERFORMED DURING STAY: None. ADMITTING DIAGNOSES: 1. Symptomatic anemia. DISCHARGE DIAGNOSES: 1. Symptomatic anemia. COMPLICATIONS/CHIEF COMPLAINT: Aortic Stenosis. HISTORY OF PRESENT ILLNESS: 64-year-old male with past medical history of CHF and progressive anemia was admitted for symptomatic anemia. Patient was recently admitted for the same reason. 3-4 weeks ago, had an extensive workup including EGD, colonoscopy, hemolytic/malignancy workup, which has been negative so far. Patient has been scheduled for bone marrow biopsy at [facility] office for tomorrow, presented to the emergency department with worsening dyspnea due to progressive anemia. Patient was transfused 3 units of packed red blood cells, became volume overloaded because of that, treated with IV Lasix, volume status closely baseline, patient is symptomatic, without any completes at this time, complete resolution of dyspnea currently. Patient is not displaying any signs of active blood loss/worsening anemia at this time, will discharge for outpatient follow with mash tub cooker to undergo bone marrow biopsy tomorrow. Patient will also be discharged on Lasix 20 mg twice a day and potassium supplements 10 mEq daily for 2 weeks, advised to follow with PCP in 1-2 weeks regarding further need of diuresis. HOSPITAL COURSE: As above. DISCHARGE MEDICATIONS: Please see below. ALLERGIES: Please see below. PHYSICAL EXAMINATION: VITAL SIGNS: Please see below. GENERAL: No distress HEENT: Normocephalic, atraumatic, moist mucous membranes NECK: Supple CARDIOVASCULAR EXAMINATION: S1, S2, no murmurs RESPIRATORY EXAMINATION: Bibasilar crackles, no wheezing ABDOMINAL EXAMINATION: Soft, nontender, nondistended, positive bowel sounds EXTREMITIES: Range of motion intact SKIN: No rash NEUROLOGICAL EXAMINATION: Alert and oriented 3, no focal deficits PSYCHIATRIC EXAMINATION: Calm and cooperative LABORATORY DATA: Please see below. IMAGING: CT with bilateral pleural effusions and pulmonary vascular congestion PROGNOSIS: Fair ACTIVITY: As tolerated. DIET: Cardiac DISCHARGE PLAN: Patient will follow-up with [facility] cooker tomorrow for bone marrow biopsy and PCP in 1-2 weeks DISPOSITION: Home. DISCHARGE INSTRUCTIONS: 1. As above. DISCHARGE CONDITION: Stable. TIME SPENT ON DISCHARGE: Greater than 34 minutes. Vital Signs/I&Os Vital Signs Date Time Temp Pulse Resp B/P (MAP) Pulse Ox O2 Delivery O2 Flow Rate FiO2 04/07/19 08:00 97.8 66 18 144/74 (97) 95 Room Air I&O- Last 24 Hours up to 6 AM 04/07/19 06:00 Intake Total 940 ml Output Total 3075 ml Balance -2135 ml Laboratory Data Labs 24H Laboratory Tests 2 04/06/19 11:53: 04/06/19 12:20: Bedside Glucose (Misc Panel) 209H 04/06/19 17:24: Bedside Glucose (Misc Panel) 148H 04/06/19 21:52: Bedside Glucose (Misc Panel) 186H 04/07/19 05:05: Nucleated Red Blood Cells % (auto) 0.0, Anion Gap 8, Glomerular Filtration Rate > 60.0, Calcium Level 8.5L, Phosphorus Level 3.8, Magnesium Level 2.3 04/07/19 06:47: Bedside Glucose (Misc Panel) 124H CBC/BMP Laboratory Tests 04/06/19 11:53 04/07/19 05:05 FSBS Laboratory Tests Test 04/06/19 12:20 04/06/19 17:24 04/06/19 21:52 04/07/19 06:47 Range/Units Bedside Glucose (Misc Panel) 209 148 186 124 80-115 MG/DL Discharge Medications Scheduled Amlodipine Besylate (Amlodipine Besylate) 5 Mg Tablet, 5 MG PO QHS, (Reported) Atorvastatin Calcium (Atorvastatin Calcium) 20 Mg Tablet, 20 MG PO QHS, (Reported) Clopidogrel Bisulfate (Plavix) 75 Mg Tablet, 75 MG PO DAILY, (Reported) Cyanocobalamin (Cyanocobalamin Injection) 1,000 Mcg/1 Ml Vial, 1,000 MCG INJ Q2WK, (Reported) ON HOLD; PT'S LEVELS ARE STABLE Furosemide (Lasix) 20 Mg Tablet, 20 MG PO BID Levothyroxine Sodium (Synthroid) 100 Mcg Tablet, 100 MCG PO DAILY, (Reported) Lisinopril (Lisinopril) 10 Mg Tablet, 10 MG PO QHS, (Reported) Metformin HCl (Metformin HCl) 1,000 Mg Tablet, 1,000 MG PO BID, (Reported) Metoprolol Tartrate (Metoprolol Tartrate) 25 Mg Tablet, 25 MG PO QHS, (Reported) Potassium Citrate (Potassium Citrate 10MEQ (Urocit-K)) 10 Meq Tablet.er, 1 TAB PO DAILY Prednisolone Acetate (Prednisolone Acetate 1% Opth Susp) 5 Ml Drops.susp, 1 DROP OU BID, (Reported) Tamsulosin Hcl (Tamsulosin HCl) 0.4 Mg Capsule, 0.4 MG PO QHS, (Reported) Scheduled PRN Acetaminophen (Acetaminophen) 325 Mg Tablet, 1,300 MG PO BID PRN for PAIN / FEVER, (Reported) Allergies Coded Allergies: No Known Allergies (Unverified , 02/13/19) STEPHANIE SWAIN MD Apr 07, 2019 11:35
[2019-04-07 11:41] LABS: FOLATE 5.4 NG/ML (>5.4)
== END 2019-04-07 11:33 | disposition left against medical advice (07) | DRG 812 ==
LOC: M ED 12:40 → M ED INP 14:45 → ENRESERV 15:05 → M PCU 16:49
PROVIDERS: ADMIT Internal Medicine; ATTEND Internal Medicine
PROC: 30233N1 Transfusion of Nonautologous Red Blood Cells into Peripheral Vein, Percutaneous Approach (ICD-10-PCS; principal; 2019-04-05)
DX: D64.9 Anemia, unspecified (principal); I50.9 Heart failure, unspecified; I35.0 Nonrheumatic aortic (valve) stenosis; I25.10 Atherosclerotic heart disease of native coronary artery without angina pectoris; I11.0 Hypertensive heart disease with heart failure; E87.71 Transfusion associated circulatory overload; I25.2 Old myocardial infarction; E11.9 Type 2 diabetes mellitus without complications; E03.9 Hypothyroidism, unspecified; Z96.643 Presence of artificial hip joint, bilateral; Z79.84 Long term (current) use of oral hypoglycemic drugs; Z79.52 Long term (current) use of systemic steroids; Z79.899 Other long term (current) drug therapy

== ENCOUNTER → 2019-04-30 | Outpatient (REF) | payer MEDICARE, MEDICAID ==
[~2019-04-30] MED LIST changes: +ACET1TAB55 PO; +LASI20TA3 PO; +POTA10808 PO; +SYNT100T PO
[2019-04-30 13:26] LABS: FREE T4 0.92 NG/DL (0.76-1.46); THYROID STIMULATING HORMONE 6.6 uIU/ML (0.358-3.740)
== END ==
LOC: M LAB REF 13:02
PROVIDERS: ATTEND Family Medicine
DX: E03.9 Hypothyroidism, unspecified (principal); D64.9 Anemia, unspecified

== ENCOUNTER 2019-06-06 15:18 | Outpatient (CLI) | payer MEDICARE, MEDICAID ==
[~2019-06-06] VITALS: Ht 182.9 cm; Wt 86.4 kg
[2019-06-06] VITALS (10 sets, daily range): BP systolic 148–189; BP diastolic 68–88
[2019-06-06] MEDS ORDERED: diphenhydrAMINE 25 MG CAP PO ONE (15:30)
[2019-06-06] MEDS ORDERED: ACETAMINOPHEN TAB 650MG DOSE (2X325MG) PO ONE (15:30)
--- NOTE | 2019-06-09 11:29 | MEDONC ---
DATE OF SERVICE: 06/06/2019 REASON FOR FOLLOWUP: CBC for transfusion assessment, symptomatic anemia. DIAGNOSIS AND TREATMENT HISTORY: Normocytic anemia - transfusion dependent per prior notes, panendoscopy negative. 04/09/2019 BMBx - normal cellular marrow, normal cytogenetics, 1+ iron stain, baseline epo - 47. Possible MDS , by 04/23/2019 commenced Aranesp for erythropoiesis support while Next Gen Sequencing for MDS ordered and awaited. INTERVAL HISTORY: Met patient for the first time today. He came in for a CBC check and his Aranesp dose, which I am told he received for hemoglobin of 7.8. He also reported symptoms of shortness of breath and fatigue and I was asked to see him. Per patient, over the past 3-4 days, he has become increasingly tired and fatigued and also developed shortness of breath when he lies down. Needs two pillows to help with sleep, denies waking up short of breath. Denies any other complaints. REVIEW OF SYSTEMS: Constitutional: No fevers, no chills, no night sweats, no malaise, no weight loss. Cardiopulmonary: No chest pain, no palpitations, no dizziness. No cough. No hemoptysis. Gastrointestinal: No pain, no nausea, no vomiting, no constipation, no diarrhea. No hematemesis, no melena, no hematochezia. Genitourinary: No dysuria, no hematuria, no incontinence, no frequency, no urgency. Musculoskeletal: No bony, no muscle, no joint aches. CAR REPAIRER: No tingling, no weakness, no numbness, no headaches, no dizziness, no seizures, no speech, no visual disturbances, All other systems, are negative unless otherwise specified in HPI. PAST MEDICAL HISTORY: CAD/OR - S/P stent placement. MEDICATIONS: Reviewed in EMR and reconciled. ALLERGIES: NKDA. VITAL SIGNS: Reviewed in EMR - stable. PHYSICAL EXAM: HEENT: Oral mucosa - pink and moist, no conjunctival pallor, sclera anicteric bilaterally. LYMPHATICS: No cervical, supraclavicular, axillary or inguinal LAD. LUNGS: Clear to auscultation bilaterally, resonant to percussion bilaterally. HEART: Regular rhythm, no murmurs, no S3/S4, no rubs. ABDOMEN: Soft, nontender, bowel sounds normoactive, no hepatosplenomegaly. EXTREMITIES: No edema bilaterally. Calves, nontender bilaterally. SKIN/NAILS: No nail changes. No petechiae/ecchymosis or other skin changes. MUSCULOSKELETAL: Spine nontender to palpation. INVESTIGATIONS: Reviewed in the EMR. ASSESSMENT/PLAN: 1. Transfusion dependent anemia - currently on Aranesp with dropping hemoglobin at 7.8 - symptomatic today. Discussed with the patient who is agreeable to discuss risks and benefits. The patient was agreeable to two units of packed RBCs. 04/02/2019 EGD and colonoscopy - no evidence of bleeding per patient. He was advised a capsule endoscopy by GI but he declined. Advised patient to followup with GI per their instructions and complete capsule endoscopy to evaluate for additional sources of bleeding. Of note, last iron studies March 2018 revealed a ferritin of 64 - update iron studies today - replenish any low stores. For completion check, folate, add hemolysis labs. No evidence of plasma cell dyscrasia on bone marrow done 04/09/2019. No obvious evidence of MDS. 03/05/2019 peripheral blood flow cytometry - no evidence of an abnormal myeloid population or lymphoproliferative disorder, No evidence of PNH by FLAER protocol. Bone marrow biopsy revealed no mary ann evidence of myelodysplasia, leukemia lymphoma or plasma cell dyscrasia. To rule out any molecular evidence of potential MDS, Next Gen sequencing was performed which revealed no clinically significant variant. 02/23/2019 B12 - 6139 - no evidence of deficiency. Await above GI work-up to determine next steps. 2. Two pillow orthopnea - advised patient to followup with his mold mechanic for further evaluation and management. FOLLOWUP: 06/13/[address] Monique Whitfield. All of the above was relayed to the patient who was given an opportunity to ask questions that were answered to satisfaction. The patient voiced an understanding and agreed to proceed. I spent 20 minutes during this visit seeing the patient [id number] and reviewing records. More than 50% of the time was spent in direct [id number] discussion and counseling of the patient. Electronically Signed by Curt Contreras MD 06/09/2019 06:20 P DD: Curt Contreras MD 06/06/2019 07:03 P DT: indira 06/09/2019 11:02 A CC:
== END 2019-06-06 20:15 | disposition home or self-care (01) ==
LOC: M INFU 15:18 → M PED 17:55 → M INFU 20:15
PROVIDERS: ATTEND Internal Medicine Medical Oncology
DX: D46.4 Refractory anemia, unspecified (principal)
CPT/HCPCS: 36415; 36430; 85027; 86850; 86900; 86901; 86920; 96372; J0881; P9016

== ENCOUNTER 2019-06-10 13:01 | Observation (INO) | payer MEDICARE, MEDICAID ==
[~2019-06-10] VITALS: Ht 180.3 cm; Wt 85.7 kg
[2019-06-10 13:55] LABS: BASO # 0.1 10^3/uL (0.0-0.2); BASO % 0.9 % (0.0-1.0); EOS # 0.2 10^3/uL (0.0-0.5); EOS % 3.6 % (0.0-3.0); HEMATOCRIT 29.1 % (42.0-52.0); HEMOGLOBIN 8.8 g/dl (13.5-17.5); LYMPH # 1.3 10^3/uL (1.5-5.0); MEAN CORPUSCULAR HEMOGLOBIN 28.7 pg (27.0-33.0); MEAN CORPUSCULAR HGB CONC 30.2 g/dl (32.0-36.5); MEAN CORPUSCULAR VOLUME 94.8 fl (80.0-96.0); MONO # 0.7 10^3/uL (0.0-0.8); MONO % 10.2 % (0.0-5.0); NEUTROPHILS # 4.1 10^3/uL (1.5-8.5); PLATELET COUNT, AUTOMATED 352 10^3/uL (150-450); RED BLOOD COUNT 3.07 10^6/uL (4.30-6.10); WHITE BLOOD COUNT 6.4 10^3/uL (4.0-10.0)
[2019-06-10 14:06] LABS: INR 1.08; PROTHROMBIN TIME 13.7 SECONDS (11.8-14.0)
[2019-06-10 14:26] LABS: ALBUMIN 2.8 GM/DL (3.2-5.2); ALT/SGPT 10 U/L (12-78); BILIRUBIN,DIRECT 0.3 MG/DL (0.0-0.2); BILIRUBIN,TOTAL 1.2 MG/DL (0.2-1.0); CK-MB VALUE MASS 2.8 NG/ML (<3.6); CPK CREATINE PHOSPHOKINASE 107 U/L (39-308); MB/CK RELATIVE INDEX 2.62 (< OR =4); NT-PRO BNP 6490 PG/ML (<125); THYROXINE (T4) 9.9 UG/DL (4.5-12.0); TROPONIN I 0.03 NG/ML (< 0.10)
--- NOTE | 2019-06-10 14:42 | REP ---
PORTABLE CHEST: AP portable view of the chest performed and compared to a prior study of 04/05/2019. There are stable interstitial changes bilaterally. No new infiltrate is seen bilaterally. Cardiac silhouette is mildly prominent. There is mild calcification of the thoracic aorta. The mediastinal silhouette is unchanged. IMPRESSION: Stable chronic findings when compared to prior study of 04/05/2019. Electronically Signed by Marvin Nolen MD 06/11/2019 01:44 P
[2019-06-10 14:51] LABS: BLOOD UREA NITROGEN 21 MG/DL (7-18); CALCIUM LEVEL 8.8 MG/DL (8.8-10.2); CARBON DIOXIDE LEVEL 26 MEQ/L (21-32); CHLORIDE LEVEL 106 MEQ/L (98-107); CREATININE FOR GFR 0.94 MG/DL (0.70-1.30); GLOMERULAR FILTRATION RATE > 60.0 (>49); GLUCOSE, FASTING 117 MG/DL (70-100); POTASSIUM SERUM 4.3 MEQ/L (3.5-5.1); SODIUM LEVEL 139 MEQ/L (136-145)
[2019-06-10] MEDS ORDERED: METO1TAB7 PO (15:11)
[2019-06-10] MEDS ORDERED: ISOVUE-370 76% 100ML VIAL (Q9967) As Ordered ONE (15:22)
[2019-06-10] MEDS ORDERED: FUROSEMIDE 40 MG/4 ML VIAL (J1940) IV ONE (15:30)
[2019-06-10] MEDS ORDERED: ACETAMINOPHEN TAB 650MG DOSE (2X325MG) PO PRN (16:15)
[2019-06-10] MEDS ORDERED: GLUCAGON FOR INJ 1 MG VIAL (J1610) SC PRN (16:45)
[2019-06-10] MEDS ORDERED: GLUCOSE 4 GM CHEW TABLET PO PRN (16:45)
[2019-06-10] MEDS ORDERED: DEXTROSE 50% 50 ML SYRINGE IV PRN (16:45)
[2019-06-10 17:30] VITALS: BP 170/92
[2019-06-10] MEDS: HumaLOG INSULIN (NovoLOG) PER UNIT SC SCH (17:30)
--- NOTE | 2019-06-10 18:21 | REP ---
CT ANGIOGRAM CHEST: TECHNIQUE: Axial contrast enhanced images from the thoracic inlet to the upper abdomen using 100 mL Isovue 370 intravenous contrast material with multiplanar reformations. COMPARISON: CT 04/06/2019 and 03/10/[address] evidence of pulmonary embolism. There is no thoracic aortic aneurysm or dissection. Heart is not significantly enlarged. There is no pericardial effusion. There are mildly prominent mediastinal lymph nodes but they are not significantly enlarged. There are moderate bilateral pleural effusions which have slightly increased in size when compared to the prior study. There are mild scattered diffuse interstitial opacities bilaterally as well as scattered hazy alveolar opacities. Mild focal bibasilar atelectasis/infiltrate is noted. These parenchymal findings are unchanged since the prior exam. Small bullous change is seen adjacent to the right minor fissure. Subcentimeter nodular opacity in the anterior left upper lobe is stable. There are degenerative changes of the spine. IMPRESSION: No evidence of pulmonary embolism. Slight increase in moderate sized bilateral pleural effusions. Bilateral parenchymal opacities are unchanged since the prior exam. Electronically Signed by Marvin Nolen MD 06/11/2019 10:30 P
--- NOTE | 2019-06-10 18:34 | ECGEPIP ---
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
--- NOTE | 2019-06-10 19:02 | HPE ---
DATE OF ADMISSION: 06/10/2019 at 4 p.m. CHIEF COMPLAINT: Shortness of breath. HISTORY OF PRESENT ILLNESS: Mr. Martínez is a 64-year-old gentleman who has a history of ischemic cardiomyopathy, status post myocardial infarction (MO) in the past with percutaneous intervention with stents times four. Last stent was a year ago in April. He also has a recent diagnosis of myelodysplastic syndrome and chronic anemia secondary to this. Patient has been transfused multiple times over the last several months. His last transfusion was this past week. He does not take any diuretics whatsoever. He presented to the emergency room today with complaints of orthopnea as well as shortness of breath with exertion. In the emergency room (ER) department, patient was noted to have a normal complete blood count (CBC) level. The patient himself thought that he had worsening anemia as a cause of his symptoms. He was found to have elevated brain natriuretic peptide (BNP). A chest x-ray was done, which was read as unremarkable. A CT angiogram (CTA) of the chest has been completed and is pending. I reviewed it briefly. It does appear that he has bilateral pleural effusions. I am still waiting to determine whether he has any underlying pulmonary embolus. The patient also reports having increased lower extremity swelling involving his feet. In the ER department, he has received intravenous (IV) Lasix 40 mg, but he has not urinated yet. ALLERGIES: No known drug allergies (NKDA). HOME MEDICATIONS: - Tylenol 325 mg twice a day as needed - Norvasc 5 mg daily - atorvastatin 20 mg daily - Plavix 75 mg at bedtime - Synthroid 100 mcg daily - lisinopril 10 mg by mouth daily - metformin 1000 mcg by mouth twice a day - metoprolol succinate 50 mg at bedtime - prednisolone acetate 1% ophthalmic solution, one drop both eyes four times a day - Flomax 0.4 mg at bedtime PAST MEDICAL HISTORY: Notable for: 1. Ischemic cardiomyopathy. His last ejection fraction done on 02/13/2019 showed an ejection fraction (EF) of about 35-40%. He also has moderate aortic stenosis with an aortic valve area measured at 1.3 cm squared on the same echocardiogram. 2. History of myelodysplastic syndrome. 3. Coronary artery disease status post stents times four. 4. B12 deficiency. 5. Gastroesophageal reflux disease (GERD). 6. BPH. 7. Hypertension. 8. Hyperlipidemia. 9. Hypothyroidism. 10. Chronic systolic and diastolic congestive heart failure. PAST SURGICAL HISTORY: Notable for bilateral hip arthroplasties. SOCIAL HISTORY: Patient is . He resides at home alone. He lists his aunt, Margie Montes De Oca, who lives in [place], as his surrogate medical decision maker. Patient would like to be a full code but does not desire prolonged life-sustaining measures. He is a recovering alcoholic who has not drank in approximately 1 year. He also smokes marijuana. Does not use any other illicit drugs. Denies any tobacco use. FAMILY HISTORY: Notable for coronary artery disease, predominantly affecting his grandfather's side with multiple grand uncles also having heart disease. REVIEW OF SYSTEMS: All systems reviewed with the patient otherwise negative except what is mentioned in the history of present illness (HPI). He reports having orthopnea, increased lower extremity swelling, dyspnea on exertion. He denies having any chest discomfort. He is not on any diuretics at home. He has had multiple blood transfusions for treatment of his anemia associated with myelodysplastic syndrome. PHYSICAL EXAMINATION: Today, patient's temperature is 97.5, pulse 75, respirations 24, initial blood pressure on admission was 219/99. This has improved to 162/74 without any treatment. Oxygen saturation is 99% on room air to as low as 92% on room air. In general, the patient is alert and oriented times three. He appears his stated age. He is able to provide adequate history. He is lying in the supine position in no distress whatsoever. Head is atraumatic, normocephalic. His pupils are symmetric and reactive to light. No scleral icterus. Oropharynx is clear without exudate, erythema, or thrush. Tympanic membranes visualized bilaterally. No evidence of cerumen. His neck is supple. No jugular venous distention. Lungs sounds: He has mild bibasilar rales. Heart is S1, S2. He has a grade 3/6 systolic ejection murmur consistent with aortic stenosis. No gallops or rubs are noted. His abdomen is Soft, nontender, nondistended. He has no visible ascites. No shifting dullness. His extremities are without any significant cyanosis or clubbing. He has about 1+ edema in his lower extremities bilaterally, mostly involving pedal areas and ankles. Neurologic exam: Cranial nerves II-XII are grossly intact without any focal neurologic deficits. RELEVANT LABORATORY DATA: White count 6.4, hemoglobin 8.8, hematocrit 29.1, platelet counts are 352,000. INR is 1. Sodium is 139, potassium 4.3, chloride 106, bicarbonate 26, creatinine 0.94, glucose is 117, calcium 8.8. Total bilirubin 1.2, direct bilirubin 0.3, AST 17, ALT 10, alkaline phosphatase 103, CPK 107. Troponin 0.03. Total protein 6, albumin is 2.8. TSH is 4. Free T4 is 9.9. Lactic acid was 2. Chest x-ray per report showed stable chronic findings when compared to prior studies. CT of the chest is pending final radiologic report. IMPRESSION: 1. Acute on chronic systolic and diastolic congestive heart failure. 2. Chronic anemia secondary to myelodysplastic syndrome. 3. Coronary artery disease. 4. [id number] diabetes mellitus, type 2. 5. Hypothyroidism. 6. Hypertension. PLAN: Patient will be admitted to an observation status for treatment of his acute on chronic systolic congestive heart failure. His oxygen saturation at present are 95%. He is not in any distress. Cardiology has been consulted by the ER department, and I will continue with this and will see him when he arrives on the floor sometime. Patient will be seen by Dr. Farooq, who is his antiquer. Patient will be placed on Lasix 40 mg every 12 at this time. We can consider repeating an echocardiogram. I have ordered it, but I will leave it up to the discretion of the antiquer whether he wants to continue with it. Patient will be continued on his home medications and will be closely monitored Anticipate that if he is improved, he can be discharged home tomorrow in stable condition. He will be a full code.
[2019-06-10] MEDS ORDERED: lisinopriL 10 MG TAB PO SCH (21:00)
[2019-06-10] MEDS ORDERED: amLODIPine 5 MG TAB PO SCH (21:00)
[2019-06-10] MEDS ORDERED: LEVOTHYROXINE 100MCG TABLET (0.1MG) PO SCH (21:00)
[2019-06-10] MEDS ORDERED: ATORVASTATIN 20 MG TAB PO SCH (21:00)
[2019-06-10] MEDS ORDERED: HumaLOG INSULIN (NovoLOG) PER UNIT SC SCH (21:00)
[2019-06-10] MEDS ORDERED: TAMSULOSIN 0.4 MG CAP PO SCH (21:00)
[2019-06-10] MEDS ORDERED: METOPROLOL SUCC (TopROL XL) 50MG **XL** TAB PO SCH (21:00)
[2019-06-10] MEDS ORDERED: CLOPIDOGREL 75 MG TAB PO SCH (21:00)
[2019-06-10 22:00] VITALS: BP 157/81
[2019-06-10] MEDS: HEPARIN SOD (PORCINE) 5000 UNITS/ML VIAL (J1644 PER 1000UNITS) SC SCH (22:56)
[2019-06-10 22:57] VITALS: BP 157/81
[2019-06-11] MEDS: FUROSEMIDE 40 MG/4 ML VIAL (J1940) IV SCH ×2 (00:36→12:03)
[2019-06-11 02:00] VITALS: BP 153/78
[2019-06-11 06:00] VITALS: BP 132/74
[2019-06-11 06:46] LABS: BLOOD UREA NITROGEN 22 MG/DL (7-18); CALCIUM LEVEL 8.9 MG/DL (8.8-10.2); CARBON DIOXIDE LEVEL 30 MEQ/L (21-32); CHLORIDE LEVEL 103 MEQ/L (98-107); CREATININE FOR GFR 1.03 MG/DL (0.70-1.30); GLOMERULAR FILTRATION RATE > 60.0 (>49); GLUCOSE, FASTING 147 MG/DL (70-100); MAGNESIUM LEVEL 1.7 MG/DL (1.8-2.4); POTASSIUM SERUM 3.8 MEQ/L (3.5-5.1); SODIUM LEVEL 138 MEQ/L (136-145)
[2019-06-11] MEDS: HumaLOG INSULIN (NovoLOG) PER UNIT SC SCH ×2 (08:13→12:03)
[2019-06-11] MEDS: HEPARIN SOD (PORCINE) 5000 UNITS/ML VIAL (J1644 PER 1000UNITS) SC SCH (08:14)
[2019-06-11] MEDS ORDERED: MAGNESIUM OXIDE 400 MG TAB (MAG-OX) PO SCH (09:00)
[2019-06-11 10:00] VITALS: BP 134/73
[2019-06-11] MEDS ORDERED: MAG400TA PO (12:45)
[2019-06-11] MEDS ORDERED: LASI40TA9 PO (12:45)
[2019-06-11] MEDS ORDERED: POTA20TA6 PO (12:45)
--- NOTE | 2019-06-11 12:53 | IPNPDOC ---
Subjective Date Seen The patient was seen on 06/11/19. Subjective Chief Complaint/HPI Lito feels 100% better. He remains off oxygen. He diuresed approximately 2.9 L net water loss since admission. Objective Physical Examination General Exam: Positive: Alert, Cooperative, No Acute Distress Eye Exam: Positive: Conjunctiva & lids normal Neck Exam: Positive: Supple; Negative: JVD Chest Exam: Positive: Clear to auscultation Heart Exam: Positive: Rate Normal, Normal S1, Normal S2, Murmurs (grade 3/6 systolic murmur) Abdomen Exam: Positive: Normal bowel sounds Male Exam: Positive: Normal Genital Exam Extremity Exam: Positive: Edema (trace pedal); Negative: Clubbing, Cyanosis Psych Exam: Positive: Mental status NL Assessment /Plan Assessment 1. Acute on chronic systolic and diastolic congestive heart failure likely exacerbated by recent outpatient blood transfusion 2. Chronic anemia secondary to myelodysplastic syndrome. 3. Coronary artery disease. 4. Dhd-xfoejbx-neddwuyom diabetes mellitus, type 2. 5. Hypothyroidism. 6. Hypertension. 7. Hypomagnesia 8. Moderate Plan: - BP controlled on meds - d/w dr. Goodwin, can cancel consult, will followup with him as an outpatient in 1 week - 1800 ml fluid restriction - lasix 40 mg daily - mag oxide 400 mg bid - Kdur 20 mEQ daily - home today Plan/VTE VTE Prophylaxis Ordered?: Yes VTE Exclusion Mechanical Proph: N/A:VTE Prophy Ordered VTE Exclusion Pharmacological: N/A:VTE Prophy Ordered VS, I&O, 24H, Fishbone Vital Signs/I&O Vital Signs Date Time Temp Pulse Resp B/P (MAP) Pulse Ox O2 Delivery O2 Flow Rate FiO2 06/11/19 10:00 97.6 65 20 134/73 (93) 92 Room Air I&O- Last 24 Hours up to 6 AM 06/11/19 06:00 Intake Total 400 ml Output Total 3550 ml Balance -3150 ml Laboratory Data 24H LABS Laboratory Tests 2 06/10/19 13:40: Immature Granulocyte % (Auto) 0.3, Neutrophils (%) (Auto) 64.0, Lymphocytes (%) (Auto) 21.0L, Monocytes (%) (Auto) 10.2H, Eosinophils (%) (Auto) 3.6H, Basophils (%) (Auto) 0.9, Neutrophils # (Auto) 4.1, Lymphocytes # (Auto) 1.3L, Monocytes # (Auto) 0.7, Eosinophils # (Auto) 0.2, Basophils # (Auto) 0.1, Nucleated Red Blood Cells % (auto) 0.0, Prothrombin Time 13.7, Prothromb Time International Ratio 1.08, Anion Gap 7L, Glomerular Filtration Rate > 60.0, Lactic Acid Level 2.0, Calcium Level 8.8, Total Bilirubin 1.2H, Direct Bilirubin 0.3H, Aspartate Amino Transf (AST/SGOT) 17, Alanine Aminotransferase (ALT/SGPT) 10L, Alkaline Phosphatase 103, Total Creatine Kinase 107, Creatine Kinase MB 2.8, Creatine Kinase MB Relative Index 2.62, Troponin I 0.03, MU-Yvd-A-Type Natriuretic Peptide 6490H, Total Protein 6.0L, Albumin 2.8L, Albumin/Globulin Ratio 0.88L, Thyroid Stimulating Hormone (TSH) 4.030H, Thyroxine (T4) 9.9 06/10/19 17:44: Bedside Glucose (Misc Panel) 105 06/10/19 20:20: Troponin I 0.03 06/10/19 21:09: Bedside Glucose (Misc Panel) 167H 06/11/19 06:03: Anion Gap 5L, Glomerular Filtration Rate > 60.0, Calcium Level 8.9, Magnesium Level 1.7L 06/11/19 11:26: Bedside Glucose (Misc Panel) 182H CBC/BMP Laboratory Tests 06/10/19 13:40 06/11/19 06:03 Microbiology Microbiology 06/10/19 Respiratory Virus Panel (PCR) ([facility]) - Final, Complete 06/10/19 Blood Culture, Received Pending 06/10/19 Blood Culture, Received Pending LEOBARDO GRAY MD Jun 11, 2019 12:53
== END 2019-06-11 13:50 | disposition home or self-care (01) ==
LOC: M ED 13:01 → M MSPAV 13:02 → ENRESERV 16:21
PROVIDERS: ADMIT Internal Medicine; ATTEND Internal Medicine
DX: I50.43 Acute on chronic combined systolic (congestive) and diastolic (congestive) heart failure (principal); I25.5 Ischemic cardiomyopathy; I25.2 Old myocardial infarction; I11.0 Hypertensive heart disease with heart failure; E78.49 Other hyperlipidemia; E03.9 Hypothyroidism, unspecified; K21.9 Gastro-esophageal reflux disease without esophagitis; D46.9 Myelodysplastic syndrome, unspecified; D64.9 Anemia, unspecified; D51.9 Vitamin B12 deficiency anemia, unspecified; N40.0 Benign prostatic hyperplasia without lower urinary tract symptoms; Z79.84 Long term (current) use of oral hypoglycemic drugs; Z79.899 Other long term (current) drug therapy
CPT/HCPCS: 36415; 71045; 71275; 80048; 80076; 82550; 82553; 83605; 83735; 83880; 84436; 84443; 84484; 85025; 85610; 86850; 86900; 86901; 87040; 87486; 87581; 87633; 87798; 93005; 93041; 94760; 96372; 96374; 96376; 99285; G0378; J1644; J1940; Q9967

== ENCOUNTER → 2019-06-12 | Outpatient (REF) | payer MEDICARE, MEDICAID ==
[~2019-06-12] MED LIST changes: +LASI40TA9 PO; +MAG400TA PO; +METO1TAB7 PO; +POTA20TA6 PO
[2019-06-12 13:49] LABS: CALCIUM LEVEL 8.3 MG/DL (8.8-10.2); CREATININE FOR GFR 1.47 MG/DL (0.70-1.30); POTASSIUM SERUM 4.4 MEQ/L (3.5-5.1)
== END ==
LOC: M LAB REF 13:03
PROVIDERS: ATTEND Family Medicine
DX: I35.8 Other nonrheumatic aortic valve disorders (principal); E11.65 Type 2 diabetes mellitus with hyperglycemia

== ENCOUNTER 2019-06-27 12:31 | Outpatient (CLI) | payer MEDICARE, MEDICAID ==
[~2019-06-27] VITALS: Ht 182.9 cm; Wt 87.0 kg
[2019-06-27 12:35] VITALS: BP 141/66
[2019-06-27] MEDS ORDERED: diphenhydrAMINE 50 MG CAP PO ONE (13:00)
[2019-06-27] MEDS ORDERED: ACETAMINOPHEN TAB 650MG DOSE (2X325MG) PO ONE (13:00)
[2019-06-27 13:30] VITALS: BP 108/55
[2019-06-27 14:30] VITALS: BP 127/64
[2019-06-27 15:15] VITALS: BP 125/66
== END 2019-06-27 15:30 | disposition home or self-care (01) ==
LOC: M INFU 12:31
PROVIDERS: ATTEND Internal Medicine Medical Oncology
DX: D46.4 Refractory anemia, unspecified (principal)
CPT/HCPCS: 36415; 36430; P9016

== ENCOUNTER 2019-07-04 09:08 | Outpatient (CLI) | payer MEDICARE, MEDICAID ==
[~2019-07-04] VITALS: Ht 185.4 cm; Wt 87.0 kg
[2019-07-04] VITALS (9 sets, daily range): BP systolic 123–165; BP diastolic 59–79
[~2019-07-04 09:08] MED LIST changes: +ACETAMINOPHEN TAB 650MG DOSE (2X325MG) PO SCH
[2019-07-04] MEDS: diphenhydrAMINE 25 MG CAP PO SCH ×2 (09:20→09:32)
[2019-07-04] MEDS ORDERED: FUROSEMIDE 20 MG/2 ML VIAL (J1940) IV ONE (11:00)
== END 2019-07-04 13:50 | disposition home or self-care (01) ==
LOC: M INFU 09:08
PROVIDERS: ATTEND Internal Medicine Medical Oncology
DX: D46.4 Refractory anemia, unspecified (principal)
CPT/HCPCS: 36430; 96374; J1940; P9016

== ENCOUNTER 2019-07-12 15:14 | Emergency (ER) | payer MEDICARE, MEDICAID ==
[~2019-07-12] VITALS: Ht 182.9 cm; Wt 91.4 kg
[~2019-07-12 15:14] MED LIST changes: -ACETAMINOPHEN TAB 650MG DOSE (2X325MG) PO SCH
[2019-07-12] MEDS ORDERED: FUROSEMIDE 100 MG/10 ML VIAL (J1940) IV ONE (16:00)
[2019-07-12 16:09] LABS: BASO # 0.1 10^3/uL (0.0-0.2); BASO % 0.8 % (0.0-1.0); EOS # 0.3 10^3/uL (0.0-0.5); EOS % 3.8 % (0.0-3.0); HEMATOCRIT 29.1 % (42.0-52.0); HEMOGLOBIN 8.6 g/dl (13.5-17.5); LYMPH # 1.3 10^3/uL (1.5-5.0); LYMPH % 20.3 % (24.0-44.0); MEAN CORPUSCULAR HGB CONC 29.6 g/dl (32.0-36.5); MEAN CORPUSCULAR VOLUME 91.5 fl (80.0-96.0); MONO # 0.6 10^3/uL (0.0-0.8); MONO % 9.4 % (0.0-5.0); NEUTROPHILS # 4.3 10^3/uL (1.5-8.5); NEUTROPHILS % 65.4 % (36.0-66.0); PLATELET COUNT, AUTOMATED 397 10^3/uL (150-450); RED BLOOD COUNT 3.18 10^6/uL (4.30-6.10); WHITE BLOOD COUNT 6.5 10^3/uL (4.0-10.0)
[2019-07-12 16:50] LABS: ALBUMIN 3.1 GM/DL (3.2-5.2); ALT/SGPT 12 U/L (12-78); BILIRUBIN,DIRECT 0.2 MG/DL (0.0-0.2); BILIRUBIN,TOTAL 0.7 MG/DL (0.2-1.0); BLOOD UREA NITROGEN 37 MG/DL (7-18); CALCIUM LEVEL 8.8 MG/DL (8.8-10.2); CARBON DIOXIDE LEVEL 26 MEQ/L (21-32); CHLORIDE LEVEL 107 MEQ/L (98-107); CK-MB VALUE MASS 2.9 NG/ML (<3.6); CPK CREATINE PHOSPHOKINASE 129 U/L (39-308); GLOMERULAR FILTRATION RATE > 60.0 (>49); GLUCOSE, FASTING 141 MG/DL (70-100); MB/CK RELATIVE INDEX 2.25 (< OR =4); NT-PRO BNP 4489 PG/ML (<125); POTASSIUM SERUM 4.5 MEQ/L (3.5-5.1); SODIUM LEVEL 139 MEQ/L (136-145); TOTAL PROTEIN 6.7 GM/DL (6.4-8.2); TROPONIN I < 0.02 NG/ML (< 0.10)
[2019-07-12 17:12] LABS: ABG HCO3 22.1 MEQ/L (22.0-26.0); ABG O2 SATURATION 96.6 % (95.0-99.0); ABG PARTIAL PRESSURE CO2 34.8 mmHg (35.0-45.0); ABG PARTIAL PRESSURE O2 85.6 mmHg (75.0-100.0); ABG STANDARD HCO3 22.8 MEQ/L (22.0-26.0); ABG TOTAL CO2 23.2 MEQ/L (23.0-31.0); ABG pH (ARTERIAL) 7.421 UNITS (7.350-7.450)
--- NOTE | 2019-07-12 18:01 | ECGEPIP ---
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
[2019-07-12] MEDS ORDERED: LASI40TA9 PO (18:22)
[2019-07-12 18:31] VITALS: BP 156/75
--- NOTE | 2019-07-13 08:09 | REP ---
CHEST, PORTABLE: AP portable view of the chest is performed. Comparison made with prior studies of 06/10/2019 and 04/05/2019. Heart appears upper limits of normal in size. Diffuse increased interstitial densities are unchanged since the prior exams. No consolidating infiltrate is seen. There is mild calcification of the thoracic aorta. Mediastinal silhouette is unchanged. IMPRESSION: Diffuse interstitial opacities bilaterally are unchanged compared to prior studies. Electronically Signed by Marvin Nolen MD 07/13/2019 06:08 P
== END 2019-07-12 18:38 | disposition home or self-care (01) ==
LOC: M ED 15:14
DX: I50.9 Heart failure, unspecified (principal); I44.0 Atrioventricular block, first degree; I25.2 Old myocardial infarction; I10 Essential (primary) hypertension; E03.9 Hypothyroidism, unspecified; I35.0 Nonrheumatic aortic (valve) stenosis; Z95.5 Presence of coronary angioplasty implant and graft; Z79.899 Other long term (current) drug therapy
CPT/HCPCS: 36600; 71045; 80048; 80076; 82550; 82553; 82803; 83735; 83880; 84443; 84484; 85025; 87040; 93005; 93041; 96374; 99285; J1940

== ENCOUNTER 2019-07-20 09:05 | Observation (INO) | payer MEDICARE, MEDICAID ==
[~2019-07-20] VITALS: Ht 182.9 cm; Wt 95.8 kg
[2019-07-20] VITALS (7 sets, daily range): BP systolic 138–160; BP diastolic 64–80
[2019-07-20 10:22] LABS: HEMATOCRIT 26.5 % (42.0-52.0); HEMOGLOBIN 7.9 g/dl (13.5-17.5); MEAN CORPUSCULAR HEMOGLOBIN 26.6 pg (27.0-33.0); MEAN CORPUSCULAR HGB CONC 29.8 g/dl (32.0-36.5); MEAN CORPUSCULAR VOLUME 89.2 fl (80.0-96.0); PLATELET COUNT, AUTOMATED 407 10^3/uL (150-450); RED BLOOD COUNT 2.97 10^6/uL (4.30-6.10); WHITE BLOOD COUNT 6.3 10^3/uL (4.0-10.0)
--- NOTE | 2019-07-20 10:23 | ECGEPIP ---
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
[2019-07-20 10:30] LABS: ALBUMIN 2.9 GM/DL (3.2-5.2); BILIRUBIN,TOTAL 0.8 MG/DL (0.2-1.0); CALCIUM LEVEL 8.8 MG/DL (8.8-10.2); CREATININE FOR GFR 1.31 MG/DL (0.70-1.30); GLOMERULAR FILTRATION RATE 58.3 (>49); POTASSIUM SERUM 4.7 MEQ/L (3.5-5.1); TOTAL PROTEIN 6.2 GM/DL (6.4-8.2)
[2019-07-20 10:34] LABS: INR 1.1; PROTHROMBIN TIME 13.9 SECONDS (11.8-14.0)
[2019-07-20] MEDS ORDERED: FURO40TA2 PO (11:40)
[2019-07-20] MEDS ORDERED: MAGN400T2 PO (11:40)
--- NOTE | 2019-07-20 12:09 | REP ---
Chest x-ray: Two views. History: Dyspnea on exertion. Comparison chest x-ray: July 12, 2019. Findings: Lungs are hyperinflated consistent with some degree of COPD. There is blunting of the posterior pleural angles indicating small bilateral pleural effusions. Heart size is borderline. Cardiothoracic ratio is 45.4%. Coronary artery stent material is visible as before. Pulmonary vasculature is not increased. No infiltrate is seen. No evidence of pulmonary edema. Impression: Hyperinflation. Blunting of the posterior pleural angles indicating small effusions. Coronary artery stent in place. Borderline heart size. Electronically Signed by Eduardo Diaz MD 07/20/2019 12:55 P
[2019-07-20] MEDS ORDERED: FUROSEMIDE 100 MG/10 ML VIAL (J1940) IV ONE (13:00)
[2019-07-20] MEDS ORDERED: ACETAMINOPHEN TAB 650MG DOSE (2X325MG) PO PRN (17:15)
[2019-07-20] MEDS ORDERED: metFORMIN (GLUCOPHAGE) 1000 MG TABLET PO SCH (18:00)
[2019-07-20] MEDS ORDERED: MAGNESIUM OXIDE 400 MG TAB (MAG-OX) PO SCH (21:00)
[2019-07-20] MEDS ORDERED: METOPROLOL SUCC (TopROL XL) 50MG **XL** TAB PO SCH (21:00)
[2019-07-20] MEDS ORDERED: CLOPIDOGREL 75 MG TAB PO SCH (21:00)
[2019-07-20] MEDS ORDERED: lisinopriL 10 MG TAB PO SCH (21:00)
[2019-07-20] MEDS ORDERED: ATORVASTATIN 20 MG TAB PO SCH (21:00)
[2019-07-20] MEDS ORDERED: prednisoLONE ACET 1% OPHTH SUSP 5ML OU SCH (21:00)
[2019-07-20] MEDS ORDERED: amLODIPine 5 MG TAB PO SCH (21:00)
[2019-07-20] MEDS ORDERED: TAMSULOSIN 0.4 MG CAP PO SCH (21:00)
[2019-07-20] MEDS ORDERED: LEVOTHYROXINE 100MCG TABLET (0.1MG) PO SCH (21:00)
--- NOTE | 2019-07-20 21:38 | HPE ---
DATE OF ADMISSION: 07/20/2019 ONCOLOGIST: Dr. Monique Whitfield. FIRST DIAGNOSES: 1. Symptomatic anemia. 2. History of congestive heart failure with reduced ejection fraction. HISTORY OF PRESENT ILLNESS: Aditya Martínez is a 64-year-old who probably has a myelodysplastic disorder, is followed [facility] oncology, who presents with anemia and shortness of breath. He has congestive heart failure with reduced ejection fraction with an echocardiogram done 02/2019 that showed ejection fraction 35-40%, moderate aortic stenosis with a mean gradient of 25 mm, moderate mitral stenosis with a mean gradient of 7 mm. He has had dyspnea on exertion for the past several days. He was recently admitted 06/10/2019-06/11/2019 for the same problem, was treated with transfusions as an outpatient, admitted and requiring diuresis before discharge. Patient denies any chest pain. He has had no active bleeding. He has multifactorial anemia, possible underlying myelodysplastic syndrome. He had a bone marrow biopsy 03/2019 with normal cytogenetics. OTHER PAST MEDICAL HISTORY: 1. Coronary artery disease. 2. Hypothyroidism. 3. B12 deficiency 4. Gastroesophageal reflux. 5. Benign prostatic hypertrophy (BPH). 6. Hyperlipidemia. 7. Valvular heart disease. 8. Congestive heart failure with reduced ejection fraction. SURGICAL HISTORY: Bilateral hip arthroplasty. SOCIAL HISTORY: . He does not smoke tobacco. He does smoke some marijuana. No alcohol. CODE STATUS: FULL CODE. FAMILY HISTORY: Coronary disease in the family. REVIEW OF SYSTEMS: As above, otherwise negative. No fevers, chills, night sweats, unexplained weight loss. PHYSICAL EXAMINATION: VITAL SIGNS: Per flow sheet. He is alert, conversant, no distress. There is some jugular venous distention (JVD) present. LUNGS: Have rales both bases. HEART: Regular rhythm with 2-3/6 systolic ejection murmur with a 4 diastolic rumble. ABDOMEN: Soft, nontender. No masses. EXTREMITIES: No clubbing, cyanosis. Trace pretibial edema 2+. Pedal pulses palpable. Normal strength in the arms and legs. LABORATORY DATA: White count 6.3, hemoglobin 7.9, platelets 407. Sodium 137, potassium 4.7, BUN 39, creatinine 1.3, glucose 182. PT/INR normal. Chest x-ray is pending. IMPRESSION: 1. Symptomatic anemia with mild decompensated congestive heart failure with reduced ejection fraction. Plan is to be admitted to an observation bed. Transfuse 2 units of packed red blood cells with Lasix in between. He is asking to be discharged after the transfusion, but I indicate he really should stay to make sure he does not decompensate further after the blood is given. He will consider this. 2. Coronary disease. Stable on current regimen. 3. Hypothyroidism. Continue current dose of levothyroxine. 4. Hypertensive heart disease. Continue his current medications. 5. Hyperlipidemia. Continue dose of atorvastatin. 6. Myelodysplastic syndrome. Per hematology.
[2019-07-21] MEDS ORDERED: PREVNAR 13 VACCINE SYRINGE (CPT CODE:90670) IM ONE (09:00)
[2019-07-21] MEDS ORDERED: FUROSEMIDE 40 MG TAB PO SCH (09:00)
--- NOTE | 2019-07-21 09:15 | DSES ---
DATE OF ADMISSION: 07/20/2019 DATE OF DISCHARGE: 07/20/2019 Aditya Martínez was admitted on 07/19 with anemia, myelodysplastic syndrome, needed transfusion. It was a Sunday so this could not be done through the infusion unit. Details are in the history and physical from admission. HOSPITAL COURSE: He was admitted to a medical bed. I wanted him to stay overnight. He has a history of congestive heart failure (CHF) and I did not want him to go into heart failure after the 2 units of blood. He received intravenous Lasix between units. After he received his second unit, he insisted on discharge home. I ordered a CBC after the second unit, but I do not think it was ever run. He left against my recommendations. He was discharged on a 2 gram sodium diet, 1800 mL per day fluid restriction. He was discharged on the same medicines he was taking before admission; furosemide 40 mg daily, amlodipine 5 mg daily, atorvastatin 80 mg daily, clopidogrel 75 mg daily, levothyroxine 100 mcg daily, lisinopril 10 mg daily, MagOx 400 mg twice a day, metoprolol succinate 50 mg at bedtime, his eye drops, tamsulosin 0.4 mg daily, metformin 1000 mg twice a day, Tylenol as needed. Activity as tolerated. Followup with primary care provider in a week. Followup with [facility]ematology[facility]On[facility] as previously scheduled on 07/21/2019.
== END 2019-07-20 19:00 | disposition home or self-care (01) ==
LOC: M ED 09:05 → M ED INP 11:27 → ENRESERV 11:45 → M MSPAV 13:00
PROVIDERS: ADMIT Family Medicine; ATTEND Internal Medicine
DX: D51.9 Vitamin B12 deficiency anemia, unspecified (principal); D46.9 Myelodysplastic syndrome, unspecified; I50.89 Other heart failure; I34.2 Nonrheumatic mitral (valve) stenosis; I25.10 Atherosclerotic heart disease of native coronary artery without angina pectoris; E03.9 Hypothyroidism, unspecified; K21.9 Gastro-esophageal reflux disease without esophagitis; N40.0 Benign prostatic hyperplasia without lower urinary tract symptoms; E78.49 Other hyperlipidemia; I06.9 Rheumatic aortic valve disease, unspecified; I11.9 Hypertensive heart disease without heart failure; Z79.899 Other long term (current) drug therapy
CPT/HCPCS: 36415; 36430; 71046; 80053; 85027; 85610; 86850; 86900; 86901; 86920; 93005; 96372; 96374; 99285; G0378; J0881; J1940; P9016

== ENCOUNTER → 2019-07-31 | Outpatient (REF) | payer MEDICARE, MEDICAID ==
[~2019-07-31] MED LIST changes: +FURO40TA2 PO; +MAGN400T2 PO
[2019-07-31 09:00] LABS: BLOOD UREA NITROGEN 42 MG/DL (7-18); CALCIUM LEVEL 8.3 MG/DL (8.8-10.2); CARBON DIOXIDE LEVEL 28 MEQ/L (21-32); CHLORIDE LEVEL 108 MEQ/L (98-107); CREATININE FOR GFR 1.18 MG/DL (0.70-1.30); GLOMERULAR FILTRATION RATE > 60.0 (>49); GLUCOSE, FASTING 160 MG/DL (70-100); POTASSIUM SERUM 5.1 MEQ/L (3.5-5.1); SODIUM LEVEL 139 MEQ/L (136-145)
== END ==
LOC: M LAB REF 08:28
PROVIDERS: ATTEND Family Medicine
DX: I25.10 Atherosclerotic heart disease of native coronary artery without angina pectoris (principal); I25.5 Ischemic cardiomyopathy; D46.9 Myelodysplastic syndrome, unspecified

== ENCOUNTER → 2019-08-06 | Outpatient (CLI) | payer MEDICARE, MEDICAID ==
--- NOTE | 2019-08-06 10:45 | REP ---
Clinical: Gastroparesis. Endoscopic camera capsule evaluation. Technique: Supine and upright views of the abdomen and pelvis. Findings: The bowel gas pattern is nonspecific and there is no evidence for obstruction. Moderate fecal stasis and constipation cannot be excluded. No endoscopic camera/foreign body is appreciated. No organomegaly. Skeletal structures are intact. Bilateral hip replacement noted. Impression: 1. Endoscopic camera capsule not identified. 2. Moderate fecal stasis and possible constipation cannot be excluded. Electronically Signed by Vladislav Wilson MD 08/06/2019 10:37 A
== END ==
LOC: M RAD 10:02
PROVIDERS: ATTEND Internal Medicine Gastroenterology
DX: K31.84 Gastroparesis (principal); Z96.643 Presence of artificial hip joint, bilateral

== ENCOUNTER → 2019-08-07 | Outpatient (REF) | payer MEDICARE, MEDICAID ==
[2019-08-07 09:19] LABS: BLOOD UREA NITROGEN 28 MG/DL (7-18); CREATININE FOR GFR 1.06 MG/DL (0.70-1.30); FERRITIN 66 NG/ML (26-388); GLOMERULAR FILTRATION RATE > 60.0 (>49); IRON (FE) 44 UG/DL (65-175); PERCENT SATURATION 12.3 % (19.7-50.0); TOTAL IRON BINDING CAPACITY 359 UG/DL (250-450)
[2019-08-07 09:27] LABS: VITAMIN B12 LEVEL 648 PG/ML (247-911)
[2019-08-07 09:28] LABS: FOLATE 11.2 NG/ML (>5.4)
[2019-08-12 00:10] LABS: ANTI-PARIETAL CELL ANTIBODY 1.5 Units (0.0-20.0); IGASUB2 240.2 mg/dL (73.2-301.2); IGASUB3 53.2 mg/dL (13.4-97.9); IgA SERUM (part of Subclasses) 310 mg/dL (61-437); TISSUE TRANSGLUTAMINASE IgA <2 U/mL (0-3)
== END ==
LOC: M LAB REF 08:56
PROVIDERS: ATTEND Internal Medicine Gastroenterology
DX: D50.9 Iron deficiency anemia, unspecified (principal)

== ENCOUNTER → 2019-09-02 | Outpatient (CLI) | payer MEDICARE, MEDICAID ==
--- NOTE | 2019-09-02 10:57 | REP ---
NUCLEAR GI BLOOD LOSS SCAN: Following the intravenous administration of 27.1 millicuries technetium 99m tagged RBCs, using the UltraTag kit, multiple images of the abdomen and pelvis are performed up to 1 hour post injection. Normal blood pool structures are seen. The abdominal aorta and inferior vena cava, iliac branches, liver and spleen are visualized. There is no abnormal activity along the course of the GI tract that would suggest the presence of active GI bleeding. IMPRESSION: No evidence of active GI bleeding at this time. Electronically Signed by Marvin Nolen MD 09/02/2019 04:56 P
== END ==
LOC: M RAD 08:04
PROVIDERS: ATTEND Internal Medicine Gastroenterology
DX: D50.0 Iron deficiency anemia secondary to blood loss (chronic) (principal)
CPT/HCPCS: 78278; A9560

== ENCOUNTER → 2019-09-04 | Outpatient (CLI) | payer MEDICARE, MEDICAID ==
[2019-09-04 09:05] LABS: BASO # 0.1 10^3/uL (0.0-0.2); EOS # 0.3 10^3/uL (0.0-0.5); EOS % 3.8 % (0.0-3.0); HEMATOCRIT 26.8 % (42.0-52.0); HEMOGLOBIN 8.5 g/dl (13.5-17.5); LYMPH # 1.8 10^3/uL (1.5-5.0); LYMPH % 24.5 % (24.0-44.0); MEAN CORPUSCULAR HEMOGLOBIN 28.7 pg (27.0-33.0); MEAN CORPUSCULAR HGB CONC 31.7 g/dl (32.0-36.5); MEAN CORPUSCULAR VOLUME 90.5 fl (80.0-96.0); MONO # 0.7 10^3/uL (0.0-0.8); MONO % 9.6 % (0.0-5.0); NEUTROPHILS # 4.4 10^3/uL (1.5-8.5); NEUTROPHILS % 60.7 % (36.0-66.0); PLATELET COUNT, AUTOMATED 307 10^3/uL (150-450); RED BLOOD COUNT 2.96 10^6/uL (4.30-6.10); WHITE BLOOD COUNT 7.3 10^3/uL (4.0-10.0)
== END ==
LOC: M LAB 08:06
PROVIDERS: ATTEND Internal Medicine Medical Oncology
DX: D64.9 Anemia, unspecified (principal)

== ENCOUNTER 2019-09-11 11:04 | Outpatient (CLI) | payer MEDICARE, MEDICAID ==
[2019-09-11] VITALS (8 sets, daily range): BP systolic 139–185; BP diastolic 64–81
[~2019-09-11] VITALS: Ht 182.9 cm; Wt 87.2 kg
[~2019-09-11 11:04] MED LIST changes: +ACETAMINOPHEN TAB 650MG DOSE (2X325MG) PO SCH; +diphenhydrAMINE 25MG CAP PO SCH
== END 2019-09-11 16:00 | disposition home or self-care (01) ==
LOC: M INFU 11:04
PROVIDERS: ATTEND Internal Medicine Medical Oncology
DX: D64.9 Anemia, unspecified (principal)
CPT/HCPCS: 36415; 36430; 85027; 86850; 86900; 86901; 86920; P9016

== ENCOUNTER → 2019-09-25 | Outpatient (REF) | payer MEDICARE, MEDICAID ==
[~2019-09-25] MED LIST changes: -ACETAMINOPHEN TAB 650MG DOSE (2X325MG) PO SCH; -diphenhydrAMINE 25MG CAP PO SCH
[2019-09-25 13:45] LABS: BLOOD UREA NITROGEN 28 MG/DL (7-18); CALCIUM LEVEL 8.2 MG/DL (8.8-10.2); CARBON DIOXIDE LEVEL 24 MEQ/L (21-32); CHLORIDE LEVEL 105 MEQ/L (98-107); CHOLESTEROL LEVEL 116 MG/DL (<200); CHOLESTEROL RISK RATIO 2.761 (<5); CREATININE FOR GFR 1.17 MG/DL (0.70-1.30); FREE T4 1.16 NG/DL (0.76-1.46); GLOMERULAR FILTRATION RATE > 60.0 (>49); GLUCOSE, FASTING 132 MG/DL (70-100); HDL CHOLESTEROL 42 MG/DL (>40); LDL CHOLESTEROL 55 MG/DL (<100); NON-HDL-C 74 MG/DL; POTASSIUM SERUM 5.1 MEQ/L (3.5-5.1); SODIUM LEVEL 138 MEQ/L (136-145); TRIGLYCERIDES LEVEL 97 MG/DL (<150)
== END ==
LOC: M LAB REF 10:17
PROVIDERS: ATTEND Physician Assistant
DX: E78.2 Mixed hyperlipidemia (principal); E03.9 Hypothyroidism, unspecified

== ENCOUNTER → 2019-10-16 | Outpatient (REF) | payer MEDICARE, MEDICAID ==
[2019-10-16 08:52] LABS: BLOOD UREA NITROGEN 27 MG/DL (7-18); CARBON DIOXIDE LEVEL 26 MEQ/L (21-32); CHLORIDE LEVEL 106 MEQ/L (98-107); CREATININE FOR GFR 1.26 MG/DL (0.70-1.30); GLOMERULAR FILTRATION RATE > 60.0 (>49); GLUCOSE, FASTING 114 MG/DL (70-100); POTASSIUM SERUM 4.9 MEQ/L (3.5-5.1); SODIUM LEVEL 142 MEQ/L (136-145)
== END ==
LOC: M LAB REF 07:56
PROVIDERS: ATTEND Family Medicine
DX: I25.5 Ischemic cardiomyopathy (principal)

== ENCOUNTER 2020-01-04 14:29 | Observation (INO) | payer MEDICARE, MEDICAID ==
[~2020-01-04] VITALS: Ht 182.9 cm; Wt 88.6 kg
[~2020-01-04 14:29] MED LIST changes: +AMLO1TAB24 PO; -AMLO5TAB6 PO
[2020-01-04 15:48] LABS: BASO # 0.1 10^3/uL (0.0-0.2); BASO % 0.8 % (0.0-1.0); EOS # 0.1 10^3/uL (0.0-0.5); EOS % 1.4 % (0.0-3.0); HEMATOCRIT 30.5 % (42.0-52.0); HEMOGLOBIN 9.9 g/dl (13.5-17.5); LYMPH # 1.4 10^3/uL (1.5-5.0); LYMPH % 15.8 % (24.0-44.0); MEAN CORPUSCULAR HEMOGLOBIN 31.9 pg (27.0-33.0); MEAN CORPUSCULAR HGB CONC 32.5 g/dl (32.0-36.5); MEAN CORPUSCULAR VOLUME 98.4 fl (80.0-96.0); MONO # 0.6 10^3/uL (0.0-0.8); MONO % 6.7 % (0.0-5.0); NEUTROPHILS # 6.5 10^3/uL (1.5-8.5); NEUTROPHILS % 75.1 % (36.0-66.0); PLATELET COUNT, AUTOMATED 337 10^3/uL (150-450); WHITE BLOOD COUNT 8.7 10^3/uL (4.0-10.0)
[2020-01-04 15:58] LABS: INR 0.92; PROTHROMBIN TIME 12.6 SECONDS (11.8-14.0)
[2020-01-04 15:59] LABS: PARTIAL THROMBOPLASTIN TIME 25.2 SECONDS (25.0-38.4)
[2020-01-04 16:33] LABS: ALT/SGPT 14 U/L (12-78); BILIRUBIN,DIRECT < 0.1 MG/DL (0.0-0.2); BILIRUBIN,TOTAL 0.4 MG/DL (0.2-1.0); BLOOD UREA NITROGEN 39 MG/DL (7-18); CALCIUM LEVEL 8.8 MG/DL (8.8-10.2); CARBON DIOXIDE LEVEL 25 MEQ/L (21-32); CHLORIDE LEVEL 103 MEQ/L (98-107); CK-MB VALUE MASS 3.3 NG/ML (<3.6); CPK CREATINE PHOSPHOKINASE 90 U/L (39-308); CREATININE FOR GFR 1.94 MG/DL (0.70-1.30); GLUCOSE, FASTING 195 MG/DL (70-100); MB/CK RELATIVE INDEX 3.67 (< OR =4); NT-PRO BNP 4755 PG/ML (<125); POTASSIUM SERUM 4.4 MEQ/L (3.5-5.1); SODIUM LEVEL 136 MEQ/L (136-145); TOTAL PROTEIN 6.3 GM/DL (6.4-8.2); TROPONIN I 0.04 NG/ML (< 0.10)
[2020-01-04] MEDS ORDERED: NS 1,000 ML IV SCH (17:00)
[2020-01-04] MEDS ORDERED: NS 500 ML IV ONE (17:00)
[2020-01-04 17:31] LABS: FREE T4 0.99 NG/DL (0.76-1.46)
--- NOTE | 2020-01-04 18:01 | HPEPDOC ---
[facility] Medical History & Physical Date of Admission Jan 04, 2020 Date of Service: Jan 04, 2020 History and Physical CHIEF COMPLAINT: weakness, dizziness HISTORY OF PRESENT ILLNESS: Mr Desouza is a 64 year old man with known history of anemia with recurrent transfusion (extensive work up in the past), diabetes mellitus type II, CAD with prior PCI, hypothyroidism, hyperlipidemia;presented to hospital due to weakness in the past 2 days. He said he has been in good state of health until 2 days ago when he noted that he is unusually tired, that he can barely do anything, "no energy" as he said. he denies any associated symptoms - no chest pain, no dyspnea, no focal deficits, no numbness, no headaches, no fever, no chills, n diarrhea, no vomiting, no abdominal pain, no muscle pain. He has still been ea ting and drinking, but mostly just stayed in bed for the past two days. He tried to get breakfast at a local diner this morning, and he just felt weak and dizzy, without any syncope, even before he get to have his breakfast, he decided to go home and lay down, he felt somewhat better but due to his concern, decided to come to hospital. He thought it was his "low blood". He has history of recurrent anemia, underwent endoscopy and colonoscopy,and even bone marrow biopsy, but allegedly no diagnosis as per patient. HE was previously on brillinta and when it was stopped after he completed a year post PCI, he did not need to be transfused as frequently (used to bed every 2 weeks). Now its been months since his last transfusion. He denies any dizzizness now, no chest pain. No weakness. No confusion. No hiking. No recent travel. No sick contacts that he knows of. 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 does not smoke. occasionally smoke marijuana. denies any illicit drug use FAMILY HISTORY: reviewed but not contributory to current illness ALLERGIES: Please see below. REVIEW OF SYSTEMS: 10 point review of system, negative except for those stated in HPI HOME MEDICATIONS: Please see below. PHYSICAL EXAMINATION: Vital Sign - Last 24 Hours 01/04/20 01/04/20 01/04/20 14:30 15:01 16:13 Temp 97.8 Pulse 67 60 65 68 Resp 20 20 B/P (MAP) 135/66 (89) 137/60 (85) 122/66 (84) 120/70 (87) Pulse Ox 100 O2 Delivery Room Air general: elderly man, pleasant, laying in bed, not in any distress, AAO x 3, HEENT: anicteric sclerae, atraumatic head, no facial asymmetry, EOM intact, PERRLA, no throat exudates, dry mouth and lips. NECK: supple, no tenderness, no bruits heard. CHEST: clear breath sounds, no rales or wheezing noted CVS: s1 and s2 distinct, loud systolic murmur radiating to apex, Abdomen: soft, normoactive bowel sounds, no tenderness , no rigidity noted Extremities: No edema, no calf tenderness, no limitation of movement, no joint deformity. 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 CN II XII grossly intact, good hand delivery coordinator, 5/5 on all extremities LABORATORY DATA: See below. IMAGING: I have reviewed patient's EKG, sinus rhythm, left deviation, no st changes I have reviewed Chest xray, no vascular congestion noted MICROBIOLOGY: Please see below. Laboratory Tests 01/04/20 15:30 ASSESSMENT: 1. Weakness possibly due to dehydration, and hypothyroidism 2. Hypothyroidism 3. DELORIS on CKD stage II 4. Aortic stenosis, moderate base on ECHO on 2019 5. Diabetes mellitus type II, with hyperglycemia 6. Congestive heart failure, systolic , HFrEF, chronic, not decompensated 7. Hypertension . PLAN: * admit patient to med surg. * He has been feeling weak. Noted Mild elevation of creatinine. Given 500 cc bolus in ED. Will hold off on additional fluids due to patient's EF 35-45%. * avoid and d/c nephrotoxic drugs. I have reviewed his medications. D/C metformin. * Noted TSH is elevated, he takes levothyroxine 100 mcg, increase to 125 mcg. * He has not complained of dizziness now or syncope. Note that he has aortic stenosis, which could contribute to dizziness. * obtain a1c. lipid profile. * BP is elevated * repeat cmp in AM. PT and OT eval, if improved symptoms, anticipate d/c in Am. * repeat BNP and serial troponin. * discussed with patient. * Due to history of recurrent anemia, avoid anticoagulation. * DVT: scd * Code: FULL CODE. Vital Signs Vital Signs Date Time Temp Pulse Resp B/P (MAP) Pulse Ox O2 Delivery O2 Flow Rate FiO2 01/04/20 16:13 60 137/60 (85) 65 122/66 (84) 68 120/70 (87) 01/04/20 15:01 20 01/04/20 14:30 97.8 100 Room Air Laboratory Data Labs 24H Laboratory Tests 2 01/04/20 15:30: Immature Granulocyte % (Auto) 0.2, Neutrophils (%) (Auto) 75.1H, Lymphocytes (%) (Auto) 15.8L, Monocytes (%) (Auto) 6.7H, Eosinophils (%) (Auto) 1.4, Basophils (%) (Auto) 0.8, Neutrophils # (Auto) 6.5, Lymphocytes # (Auto) 1.4L, Monocytes # (Auto) 0.6, Eosinophils # (Auto) 0.1, Basophils # (Auto) 0.1, Nucleated Red Blood Cells % (auto) 0.0, Prothrombin Time 12.6, Prothromb Time International Ratio 0.92, Activated Partial Thromboplast Time 25.2, Anion Gap 8, Glomerular Filtration Rate 37.0L, Calcium Level 8.8, Total Bilirubin 0.4, Direct Bilirubin < 0.1, Aspartate Amino Transf (AST/SGOT) 19, Alanine Aminotransferase (ALT/SGPT) 14, Alkaline Phosphatase 100, Total Creatine Kinase 90, Creatine Kinase MB 3.3, Creatine Kinase MB Relative Index 3.67, Troponin I 0.04, TJ-Lyj-N-Type Natriur etic Peptide 4755H, Total Protein 6.3L, Albumin 3.0L, Albumin/Globulin Ratio 0.9, Thyroid Stimulating Hormone (TSH) 16.000H, Free Thyroxine 0.99 CBC/BMP Laboratory Tests 01/04/20 15:30 Home Medications Scheduled Amlodipine Besylate (Amlodipine Besylate) 5 Mg Tablet, 5 MG PO QHS Atorvastatin Calcium (Atorvastatin Calcium) 20 Mg Tablet, 80 MG PO QHS Furosemide (Furosemide) 40 Mg Tablet, 40 MG PO DAILY Levothyroxine Sodium (Synthroid) 100 Mcg Tablet, 100 MCG PO QHS Lisinopril (Lisinopril) 10 Mg Tablet, 10 MG PO QHS Metformin HCl (Metformin HCl) 1,000 Mg Tablet, 1,000 MG PO BID Metoprolol Succinate (Metoprolol Succinate) 50 Mg Tab.er.24h, 50 MG PO QHS Tamsulosin Hcl (Tamsulosin HCl) 0.4 Mg Capsule, 0.4 MG PO QHS Scheduled PRN Acetaminophen (Acetaminophen) 325 Mg Tablet, 1,300 MG PO BID PRN for PAIN / FEVER Allergies Coded Allergies: No Known Allergies (Unverified , 02/13/19) A-FIB/CHADSVASC A-FIB History Current/History of A-Fib/PAF?: No Current PO Anticoag Therapy: No JUNE TOLENTINO MD Jan 04, 2020 18:01
[2020-01-04] MEDS ORDERED: SUCR1ORA PO (18:11)
[2020-01-04] MEDS ORDERED: SPIR-10 PO (18:11)
[2020-01-04] MEDS ORDERED: ATOR80TA59 PO (18:11)
[2020-01-04 20:23] LABS: TROPONIN I 0.04 NG/ML (< 0.10)
[2020-01-04 20:36] VITALS: BP 163/78
[2020-01-04] MEDS ORDERED: ATORVASTATIN 20 MG TAB PO SCH (21:00)
[2020-01-04] MEDS: SUCRALFATE 1 GM TAB PO SCH (22:39)
[2020-01-04] MEDS: METOPROLOL TART 50 MG TAB PO SCH (22:40)
[2020-01-05] MEDS ORDERED: GLUCOSE 4GM CHEW TABLET PO PRN (05:30)
[2020-01-05] MEDS ORDERED: GLUCAGON INJ 1MG VIAL SC PRN (05:30)
[2020-01-05] MEDS ORDERED: DEXTROSE 50% 50 ML SYRINGE IV PRN (05:30)
[2020-01-05 06:00] VITALS: BP 128/68
[2020-01-05] MEDS ORDERED: LEVOTHYROXINE 125MCG TABLET (0.125MG) PO SCH (06:00)
[2020-01-05] MEDS ORDERED: HumaLOG INSULIN (NovoLOG) PER UNIT SC SCH ×2 (07:30→21:00)
[2020-01-05 08:13] LABS: HEMATOCRIT 26.7 % (42.0-52.0); HEMOGLOBIN 8.7 g/dl (13.5-17.5); MEAN CORPUSCULAR HEMOGLOBIN 31.6 pg (27.0-33.0); MEAN CORPUSCULAR HGB CONC 32.6 g/dl (32.0-36.5); MEAN CORPUSCULAR VOLUME 97.1 fl (80.0-96.0); PLATELET COUNT, AUTOMATED 327 10^3/uL (150-450); RED BLOOD COUNT 2.75 10^6/uL (4.30-6.10)
[2020-01-05] MEDS: SUCRALFATE 1 GM TAB PO SCH (08:17)
[2020-01-05 08:19] VITALS: BP 155/78
[2020-01-05] MEDS: METOPROLOL TART 50 MG TAB PO SCH (08:19)
[2020-01-05 08:54] LABS: ALBUMIN 2.6 GM/DL (3.2-5.2); BILIRUBIN,TOTAL 0.4 MG/DL (0.2-1.0); CALCIUM LEVEL 8.3 MG/DL (8.8-10.2); CREATININE FOR GFR 1.39 MG/DL (0.70-1.30); GLOMERULAR FILTRATION RATE 54.4 (>49); MAGNESIUM LEVEL 1.9 MG/DL (1.8-2.4); POTASSIUM SERUM 3.9 MEQ/L (3.5-5.1); TOTAL PROTEIN 5.7 GM/DL (6.4-8.2); TROPONIN I 0.05 NG/ML (< 0.10)
[2020-01-05] MEDS ORDERED: ENOXAPARIN 40MG/0.4ML SYRINGE (J1650 PER 10MG) SC SCH (09:00)
[2020-01-05] MEDS ORDERED: LEVO125T4 PO (11:42)
--- NOTE | 2020-01-05 11:55 | DS.PDOC ---
Discharge Summary General Date of Admission Jan 04, 2020 at 17:23 Date of Discharge january 05, 2020 Discharge Summary PROCEDURES PERFORMED DURING STAY: NONE ADMITTING DIAGNOSES: 1. Weakness possibly due to dehydration, and hypothyroidism, improved 2. Hypothyroidism 3. DELORIS on CKD stage II 4. Aortic stenosis, moderate base on ECHO on 2018 5. Diabetes mellitus type II, with hyperglycemia 6. Congestive heart failure, systolic , HFrEF, chronic, not decompensated 7. Hypertension . DISCHARGE DIAGNOSES: 1. Weakness possibly due to dehydration, and hypothyroidism 2. Hypothyroidism 3. DELORIS on CKD stage II 4. Aortic stenosis, moderate base on ECHO on 2018 5. Diabetes mellitus type II, with hyperglycemia 6. Congestive heart failure, systolic , HFrEF, chronic, not decompensated 7. Hypertension . COMPLICATIONS/CHIEF COMPLAINT: Weakness. HISTORY OF PRESENT ILLNESS: Mr. Martínez is a 64 year old man with known history of DM type II, CKD stage II, aortic stenosis, congestive heart failure, HFrEF, chronic, presented to hospital due to weakness x 2 days. No other associated symptoms. patient was just feeling weak, no energy. On arrival to hospital noted to have slight worsening of creatinine, and given 500 cc bolus. patient was also noted to have elevated tsh. EKG showed no acute st changes, troponin negative. CXR no vascular congestion. He was somewhat dry on arrival. after 500 ml bolus, no further fluids given as patient has CHF, last known echo showed EF of 35-40%. he also has aortic stenosis at that time. He follows cardiology. Patient takes levothyroxine 100 mcg, and will increase to 125 mcg po daily, and advised to have TSH recheck in 1 month. Patient seen today, doing well, felt good, did well with PT and OT. No chest pain, no dizziness, no dyspnea. Also noted metformin 1g bid , advised to hold off on metformin for now, due to renal disease. Advised to monitor glucose daily, ifremains <150, to avoid metformin. Ff-up with PCP as well. patient is stable for discharge to home. HOSPITAL COURSE: See above DISCHARGE MEDICATIONS: Please see below. ALLERGIES: Please see below. PHYSICAL EXAMINATION ON DISCHARGE: general: awake, alert, oriented x 3. Not on any distress, HEENT: atraumatic head, noted subconjunctival hemorrhage on the right eye, (p OA), EOM intact, no nasal discharges, no throat exudates noted. NECK; supple, no tenderness noted, no rigidity noted. 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 IMAGING: Chest xray , no acute infiltrate noted. PROGNOSIS: guarded ACTIVITY: [As tolerated] DIET: cardiac diet, low salt, diabetic fluid restriction 2 liters/day. DISCHARGE PLAN: 1. ff-up with your PCP in 1-2 weeks, levothyroxine dose just increase to 125 mcg, asTSH is 16, repeat TSH in 1 month, and adjust dose as needed. 2. d/c metformin due to your renal disease> monitor sugar (glucose ) at home, if <150 mg/dl, may be best to hold off on metformin, and do diet modification 3. ff-up with instrumental music teacher, as you do have aortic stenosis known on 2018. DISPOSITION: .HOME DISCHARGE INSTRUCTIONS: 1. as above ITEMS TO FOLLOWUP ON ON OUTPATIENT: 1. see discharge plan DISCHARGE CONDITION: [Stable]. TIME SPENT ON DISCHARGE:35 minutes Vital Signs/I&Os Vital Signs Date Time Temp Pulse Resp B/P (MAP) Pulse Ox O2 Delivery O2 Flow Rate FiO2 01/05/20 08:19 63 155/78 01/05/20 06:00 99.1 18 96 Room Air I&O- Last 24 Hours up to 6 AM 01/05/20 06:00 Intake Total 1460 ml Output Total 830 ml Balance 630 ml Laboratory Data Labs 24H Laboratory Tests 2 01/04/20 15:30: Immature Granulocyte % (Auto) 0.2, Neutrophils (%) (Auto) 75.1H, Lymphocytes (%) (Auto) 15.8L, Monocytes (%) (Auto) 6.7H, Eosinophils (%) (Auto) 1.4, Basophils (%) (Auto) 0.8, Neutrophils # (Auto) 6.5, Lymphocytes # (Auto) 1.4L, Monocytes # (Auto) 0.6, Eosinophils # (Auto) 0.1, Basophils # (Auto) 0.1, Nucleated Red Blood Cells % (auto) 0.0, Prothrombin Time 12.6, Prothromb Time International Ratio 0.92, Activated Partial Thromboplast Time 25.2, Anion Gap 8, Glomerular Filtration Rate 37.0L, Estimated Mean Plasma Glucose 154H, Hemoglobin A1c 7.0, Calcium Level 8.8, Total Bilirubin 0.4, Direct Bilirubin < 0.1, Aspartate Amino Transf (AST/SGOT) 19, Alanine Aminotransferase (ALT/SGPT) 14, Alkaline Phosphatase 100, Total Creatine Kinase 90, Creatine Kinase MB 3.3, Creatine Kinase MB Relative Index 3.67, Troponin I 0.04, UN-Eqr-O-Type Natriuretic Peptide 4755H, Total Protein 6.3L, Albumin 3.0L, Albumin/Globulin Ratio 0.9, Thyroid Stimulating Hormone (TSH) 16.000H, Free Thyroxine 0.99 01/04/20 19:40: Total Creatine Kinase 82, Troponin I 0.04 01/05/20 07:41: Nucleated Red Blood Cells % (auto) 0.0, Anion Gap 6L, Glomerular Filtration Rate 54.4, Calcium Level 8.3L, Total Bilirubin 0.4, Aspartate Amino Transf (AST/S GOT) 18, Alanine Aminotransferase (ALT/SGPT) 15, Alkaline Phosphatase 94, Troponin I 0.05#, RK-Wea-I-Type Natriuretic Peptide 4398H, Total Protein 5.7L, Albumin 2.6L, Albumin/Globulin Ratio 0.8, Magnesium Level 1.9 CBC/BMP Laboratory Tests 01/04/20 15:30 01/05/20 07:41 Discharge Medications Scheduled Amlodipine Besylate (Amlodipine Besylate) 5 Mg Tablet, 5 MG PO QHS, (Reported) Atorvastatin Calcium (Atorvastatin Calcium) 80 Mg Tablet, 80 MG PO QHS, (Reported) Furosemide (Furosemide) 40 Mg Tablet, 20 MG PO DAILY, (Reported) Levothyroxine Sodium (Levothyroxine Sodium) 125 Mcg Tablet, 1 TAB PO DAILY Lisinopril (Lisinopril) 10 Mg Tablet, 10 MG PO QHS, (Reported) Metoprolol Succinate (Metoprolol Succinate) 50 Mg Tab.er.24h, 50 MG PO QHS, (Reported) Spironolactone (Spironolactone) 25 Mg Tablet, 12.5 MG PO DAILY, (Reported) Sucralfate (Sucralfate) 1 Gm/10 Ml Oral.susp, 10 ML PO ACHS, (Reported) Tamsulosin Hcl (Tamsulosin HCl) 0.4 Mg Capsule, 0.4 MG PO QHS, (Reported) Scheduled PRN Acetaminophen (Acetaminophen) 325 Mg Tablet, 1,300 MG PO BID PRN for PAIN / FEVER, (Reported) Allergies Coded Allergies: No Known Allergies (Unverified , 02/13/19) JUNE TOLENTINO MD Jan 05, 2020 11:55
--- NOTE | 2020-01-21 15:08 | ECGEPIP ---
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
[2020-01-23] MEDS ORDERED: METF10004 (13:21)
--- NOTE | 2020-02-06 10:44 | REP ---
PORTABLE CHEST X-RAY: SINGLE VIEW HISTORY: Trauma. COMPARISON: 07/20/2019. FINDINGS: Monitoring electrodes overlie the chest. Coronary artery stent material is visible over the heart. There is mitral annular calcification. The heart is mildly enlarged. Pulmonary vasculature is not increased. There is no evidence of pleural effusion or pulmonary edema. Mediastinum is not widened. No rib fracture or other lesion is seen. IMPRESSION: Mild cardiac enlargement. Coronary artery stenting. Otherwise, no acute disease. MTDD
== END 2020-01-05 13:14 | disposition home or self-care (01) ==
LOC: M ED 14:29 → M ED INP 17:23 → ENRESERV 18:32 → M MSPAV 20:36
PROVIDERS: ADMIT Internal Medicine; ATTEND Internal Medicine
DX: R53.1 Weakness (principal); R42 Dizziness and giddiness; E86.0 Dehydration; E03.9 Hypothyroidism, unspecified; N17.9 Acute kidney failure, unspecified; N18.2 Chronic kidney disease, stage 2 (mild); I35.0 Nonrheumatic aortic (valve) stenosis; E11.65 Type 2 diabetes mellitus with hyperglycemia; I50.22 Chronic systolic (congestive) heart failure; I11.0 Hypertensive heart disease with heart failure; D64.9 Anemia, unspecified; I25.10 Atherosclerotic heart disease of native coronary artery without angina pectoris; I25.2 Old myocardial infarction; Z98.61 Coronary angioplasty status; Z79.899 Other long term (current) drug therapy; Z79.84 Long term (current) use of oral hypoglycemic drugs
CPT/HCPCS: 36415; 71045; 80048; 80053; 80076; 82550; 82553; 83036; 83735; 83880; 84439; 84443; 84484; 85025; 85027; 85610; 85730; 86850; 86900; 86901; 86920; 93005; 93041; 94760; 96360; 97161; 99285; G0378

== ENCOUNTER → 2020-01-29 | Outpatient (REF) | payer MEDICARE, MEDICAID ==
[~2020-01-29] MED LIST changes: +LEVO125T4 PO; +METF10004; +SPIR-10 PO; +SUCR1ORA PO
[2020-01-29 09:43] LABS: BASO # 0.1 10^3/uL (0.0-0.2); BASO % 0.9 % (0.0-1.0); EOS # 0.2 10^3/uL (0.0-0.5); EOS % 2.9 % (0.0-3.0); HEMATOCRIT 29.1 % (42.0-52.0); HEMOGLOBIN 9.3 g/dl (13.5-17.5); LYMPH # 1.9 10^3/uL (1.5-5.0); LYMPH % 27.5 % (24.0-44.0); MEAN CORPUSCULAR HEMOGLOBIN 31.5 pg (27.0-33.0); MEAN CORPUSCULAR VOLUME 98.6 fl (80.0-96.0); MONO # 0.7 10^3/uL (0.0-0.8); MONO % 10.3 % (0.0-5.0); PLATELET COUNT, AUTOMATED 324 10^3/uL (150-450); RED BLOOD COUNT 2.95 10^6/uL (4.30-6.10)
[2020-01-29 09:47] LABS: CALCIUM LEVEL 8.9 MG/DL (8.8-10.2); CHOLESTEROL RISK RATIO 2.652 (<5); CREATININE FOR GFR 1.38 MG/DL (0.70-1.30); GLOMERULAR FILTRATION RATE 54.9 (>49); MAGNESIUM LEVEL 1.7 MG/DL (1.8-2.4); POTASSIUM SERUM 4.4 MEQ/L (3.5-5.1)
[2020-01-29 10:39] LABS: MAU/CREAT RATIO 2902.4 MCG/MG (0.0-30.0)
== END ==
LOC: M LAB REF 09:16
PROVIDERS: ATTEND Family Medicine
DX: D64.9 Anemia, unspecified (principal); E11.42 Type 2 diabetes mellitus with diabetic polyneuropathy; E03.9 Hypothyroidism, unspecified; I25.5 Ischemic cardiomyopathy; M77.41 Metatarsalgia, right foot; B07.0 Plantar wart

== ENCOUNTER → 2020-01-29 | Outpatient (CLI) | payer MEDICARE, MEDICAID | LOC: M LABSMTC 09:26 | PROVIDERS: ATTEND Anesthesiology | DX: Z01.818 Encounter for other preprocedural examination (principal); Z11.59 Encounter for screening for other viral diseases; D64.9 Anemia, unspecified; E11.42 Type 2 diabetes mellitus with diabetic polyneuropathy; E03.9 Hypothyroidism, unspecified; I25.5 Ischemic cardiomyopathy; M77.41 Metatarsalgia, right foot; B07.0 Plantar wart | CPT/HCPCS: 80048; 80061; 82043; 83735; 85025; C9803; U0003 ==

== ENCOUNTER 2020-02-03 11:58 | Day surgery (SDC) | payer MEDICARE, MEDICAID ==
[~2020-02-03] VITALS: Ht 182.9 cm; Wt 89.8 kg
[~2020-02-03 11:58] MED LIST changes: +NS 1,000 ML IV ONE
[2020-02-03] MEDS ORDERED: METOPROLOL 5 MG/5 ML VIAL As Ordered ONE (13:50)
[2020-02-03] MEDS ORDERED: propofoL 200 MG/20 ML VIAL As Ordered ONE ×2 (13:59→14:17)
[2020-02-03] MEDS ORDERED: LIDOCAINE 2% 100MG/5ML SDV (FOR ANES.) As Ordered ONE (13:59)
[2020-02-03 14:59] VITALS: BP 167/80
--- NOTE | 2020-02-03 15:11 | ROOR ---
Patient Name: Aditya Martínez Procedure Date: 02/03/2020 1:47 PM Date of : 1955 Age: 64 Room: [facility] Gender: Male Note Status: Finalized Procedure: Small bowel enteroscopy Indications: Gastrointestinal bleeding source not documented by other exams, Obscure gastrointestinal bleeding Providers: Manjeet Menard MD Referring MD: Aide Freeman DO Requesting Provider: Medicines: Monitored Anesthesia Care Complications: No immediate complications. Procedure: Pre-Anesthesia Assessment: - Prior to the procedure, a History and Physical was performed, and patient medications and allergies were reviewed. The patient is competent. The risks and benefits of the procedure and the sedation options and risks were discussed with the patient. All questions were answered and informed consent was obtained. Patient identification and proposed procedure were verified by the physician, the nurse and the anesthesiologist in the procedure room. Mental Status Examination: alert and oriented. Airway Examination: normal oropharyngeal airway and neck mobility. Respiratory Examination: clear to auscultation. CV Examination: normal. Prophylactic Antibiotics: The patient does not require prophylactic antibiotics. Prior Anticoagulants: The patient has taken no previous anticoagulant or antiplatelet agents. ASA Grade Assessment: II - A patient with mild systemic disease. After reviewing the risks and benefits, the patient was deemed in satisfactory condition to undergo the procedure. The anesthesia plan was to use monitored anesthesia care (MAC). Immediately prior to administration of medications, the patient was re-assessed for adequacy to receive sedatives. The heart rate, respiratory rate, oxygen saturations, blood pressure, adequacy of pulmonary ventilation, and response to care were monitored throughout the procedure. The physical status of the patient was re-assessed after the procedure. The Colonoscope was introduced through the mouth, and advanced to the proximal jejunum. The upper GI endoscopy was accomplished without difficulty. The patient tolerated the procedure well. Findings: The Z-line was regular and was found 42 cm from the incisors. A medium-sized hiatal hernia was present. Patchy mildly erythematous mucosa without bleeding was found in the gastric antrum. Normal mucosa was found in the area of the papilla and in the entire duodenum. Normal mucosa was found in the jejunum. Area was successfully injected with 3 mL Kellee ink for tattooing. No active bleeding lesions in the entire exam. Impression: - Z-line regular, 42 cm from the incisors. - Medium-sized hiatal hernia. - Erythematous mucosa in the antrum. - Normal mucosa was found in the area of the papilla and in the entire examined duodenum. - Normal mucosa was found in the jejunum. Injected. - No specimens collected. Recommendation: - The patient will be observed post-procedure, until all discharge criteria are met. - Patient has a contact number available for emergencies. The signs and symptoms of potential delayed complications were discussed with the patient. Return to normal activities tomorrow. Written discharge instructions were provided to the patient. - High fiber diet. - Continue present medications. - Check hemoglobin and hematocrit, iron studies after Iron supplementation in 3 months. - Return to GI clinic in 3 months. - Return to primary care physician. Manjeet Menard MD Manjeet Menard MD 02/03/2020 3:10:38 PM Electronically signed by Manjeet Menard MD Number of Addenda: 0 Note Initiated On: 02/03/2020 1:47 PM Estimated Blood Loss: Estimated blood loss was minimal.
== END 2020-02-03 15:26 | disposition home or self-care (01) ==
LOC: M OPP 11:58
PROVIDERS: ATTEND Internal Medicine Gastroenterology
DX: K44.9 Diaphragmatic hernia without obstruction or gangrene (principal); K31.89 Other diseases of stomach and duodenum; K92.2 Gastrointestinal hemorrhage, unspecified; D64.9 Anemia, unspecified; E11.9 Type 2 diabetes mellitus without complications; I50.9 Heart failure, unspecified; Z79.84 Long term (current) use of oral hypoglycemic drugs; Z79.899 Other long term (current) drug therapy; Z95.5 Presence of coronary angioplasty implant and graft

== ENCOUNTER 2020-04-14 08:38 | Observation (INO) | payer MEDICARE, MEDICAID ==
[~2020-04-14] VITALS: Ht 182.9 cm; Wt 90.8 kg
[2020-04-14] VITALS (10 sets, daily range): BP systolic 120–177; BP diastolic 63–88
[~2020-04-14 08:38] MED LIST changes: -METF10004; -NS 1,000 ML IV ONE
[2020-04-14] MEDS ORDERED: FUROSEMIDE 20 MG TAB PO SCH (09:00)
[2020-04-14] MEDS ORDERED: SPIRONOLACTONE 12.5MG PER 1/2 TABLET PO SCH (09:00)
[2020-04-14 09:43] LABS: BASO # 0.1 10^3/uL (0.0-0.2); BASO % 1.2 % (0.0-1.0); EOS # 0.1 10^3/uL (0.0-0.5); EOS % 2.3 % (0.0-3.0); HEMATOCRIT 23.6 % (42.0-52.0); HEMOGLOBIN 7.2 g/dl (13.5-17.5); LYMPH # 1.5 10^3/uL (1.5-5.0); MEAN CORPUSCULAR HEMOGLOBIN 30.1 pg (27.0-33.0); MEAN CORPUSCULAR HGB CONC 30.5 g/dl (32.0-36.5); MEAN CORPUSCULAR VOLUME 98.7 fl (80.0-96.0); MONO # 0.3 10^3/uL (0.0-0.8); MONO % 6.5 % (0.0-5.0); NEUTROPHILS # 3.2 10^3/uL (1.5-8.5); NEUTROPHILS % 60.8 % (36.0-66.0); PLATELET COUNT, AUTOMATED 413 10^3/uL (150-450); RED BLOOD COUNT 2.39 10^6/uL (4.30-6.10); WHITE BLOOD COUNT 5.2 10^3/uL (4.0-10.0)
[2020-04-14 09:58] LABS: FOLATE > 24.0 NG/ML; VITAMIN B12 LEVEL 1034 PG/ML
[2020-04-14 10:07] LABS: CALCIUM LEVEL 9.1 MG/DL (8.8-10.2); CREATININE FOR GFR 1.58 MG/DL (0.70-1.30); GLOMERULAR FILTRATION RATE 46.8 (>49); PERCENT SATURATION 8.9 % (19.7-50.0); POTASSIUM SERUM 4.2 MEQ/L (3.5-5.1)
--- NOTE | 2020-04-14 11:10 | REP ---
INDICATION: anemia. COMPARISON: Comparison exam January 04, 2020.. TECHNIQUE: Sitting AP portable radiograph. FINDINGS: Monitoring electrodes are seen. Coronary artery stent material is visible in the distribution of the left coronary artery as before. Cardiomegaly is observed. Mitral annular calcification is seen. There is no evidence of pleural effusion or pulmonary edema. Pulmonary vasculature is not increased. No infiltrate is seen. There are degenerative changes in the thoracic spine and a mild dextroconvex curve is noted. Degenerative changes are noted in the shoulders as well. IMPRESSION: Mild cardiomegaly. Coronary artery stenting. Otherwise no acute disease. <Electronically signed by Lino Diaz > 04/14/20 [id number]
[2020-04-14] MEDS ORDERED: LEVO125T41 PO (11:15)
[2020-04-14] MEDS ORDERED: IRON65TA2 PO (11:15)
[2020-04-14] MEDS ORDERED: ACETAMINOPHEN TAB 650MG DOSE (2X325MG) PO PRN (12:00)
--- NOTE | 2020-04-14 12:18 | HPEPDOC ---
General Date of Admission 04/14/20 Date of Service: Apr 14, 2020 Chief Complaint The patient is a 65-year-old male admitted with a reason for visit of Abnormal Labs. Source: Patient Exam Limitations: No limitations Timing/Duration: Day(s) Severity: Moderate Associated Symptoms: Weakness History of Present Illness Patient is 65-year-old with past medical history of coronary artery diseases, status post PCI, diabetes type 2, hypothyroidism, aortic stenosis, refractory anemia, etiology unclear, as previous workup showed no hemolysis, bone marrow aspiration and biopsy unremarkable, iron studies suggestive but not conclusive for iron deficiency with lightheadedness and weakness. Patient was found to have hemoglobin 7.2, no leukocytosis, creatinine 1.5, iron 57, TIBC 414. Chest x-ray showed Mild cardiomegaly. Coronary artery stenting. Otherwise no acute disease. Of note few months ago patient had colonoscopy and EGD unremarkable. Home Medications Scheduled Amlodipine Besylate (Amlodipine Besylate) 5 Mg Tablet, 5 MG PO QHS, (Reported) Atorvastatin Calcium (Atorvastatin Calcium) 80 Mg Tablet, 80 MG PO QHS, (Reported) Ferrous Sulfate (Iron) 325 Mg Tablet, 325 MG PO BID, (Reported) Furosemide (Furosemide) 40 Mg Tablet, 20 MG PO DAILY, (Reported) Levothyroxine Sodium (Levoxyl) 125 Mcg Tablet, 125 MCG PO DAILY, (Reported) Lisinopril (Lisinopril) 10 Mg Tablet, 10 MG PO QHS, (Reported) Metformin HCl (Metformin HCl) 1,000 Mg Tablet, 1,000 MG PO BID, (Reported) Metoprolol Succinate (Metoprolol Succinate) 50 Mg Tab.er.24h, 50 MG PO QHS, (Reported) Spironolactone (Spironolactone) 25 Mg Tablet, 12.5 MG PO DAILY, (Reported) Tamsulosin Hcl (Tamsulosin HCl) 0.4 Mg Capsule, 0.4 MG PO QHS, (Reported) Scheduled PRN Acetaminophen (Acetaminophen) 325 Mg Tablet, 650 MG PO BID PRN for PAIN / FEVER, (Reported) Allergies Coded Allergies: No Known Allergies (Unverified , 02/13/19) Past Medical History Medical History CAD s/p PCI prior IA Diabetes Mellitus typeII hypothyroidism Aortic stenosis Chronic systolic CHF Surgical History PCI, cardiac cath bilateral hip replacement Family History I personally reviewed family history and found not pertinent Social History * Smoker: Denies Alcohol: sober Drugs: marijuana A-FIB/CHADSVASC A-FIB History Current/History of A-Fib/PAF?: No Current PO Anticoag Therapy: No Review of Systems Constitutional: Reports: Weakness; Denies: Chills Eyes: Denies: Pain ENT: Denies: Head Aches Skin: Denies: Rash, Lesions Pulmonary: Denies: Dyspnea Cardiovascular: Denies: Chest Pain, Palpitations Gastrointestinal: Denies: Nausea Genitourinary: Denies: Dysuria, Frequency Hematologic: Denies: Bruising Endocrine: Denies: Polydipsia Musculoskeletal: Denies: Neck Pain Neurological: Denies: Weakness Psych: Reports: Mood Normal Physical Examination General Exam: Positive: Alert, Cooperative Eye Exam: Positive: PERRLA ENT Exam: Positive: Atraumatic Neck Exam: Positive: Supple; Negative: JVD Chest Exam: Positive: Clear to auscultation Heart Exam: Positive: Rate Normal Telemetry: Positive: No significant arrhythmia Abdomen Exam: Positive: Normal bowel sounds Extremity Exam: Negative: Clubbing Skin Exam: Positive: Nl turgor and temperature Neuro Exam: Positive: Strength at 5/5 X4 ext Psych Exam: Positive: Mental status NL Vital Signs Vital Signs Date Time Temp Pulse Resp B/P (MAP) Pulse Ox O2 Delivery O2 Flow Rate FiO2 04/14/20 10:11 04/14/20 08:38 97.7 101 18 99 Room Air Laboratory Data Labs 24H Laboratory Tests 2 04/14/20 09:15: Immature Granulocyte % (Auto) 0.2, Neutrophils (%) (Auto) 60.8, Lymphocytes (%) (Auto) 29.0, Monocytes (%) (Auto) 6.5H, Eosinophils (%) (Auto) 2.3, Basophils (%) (Auto) 1.2H, Neutrophils # (Auto) 3.2, Lymphocytes # (Auto) 1.5, Monocytes # (Auto) 0.3, Eosinophils # (Auto) 0.1, Basophils # (Auto) 0.1, Reticulocyte # (auto) 59.3, Nucleated Red Blood Cells % (auto) 0.0, Percent Reticulocyte Count 2.5H, Reticulocyte Hemoglobin Equivalent 27.4, Anion Gap 7L, Glomerular Filtration Rate 46.8L, Calcium Level 9.1, Iron Level 37L, Total Iron Binding Capacity 414, Transferrin % Saturation 8.9L, Ferritin 87, Vitamin B12 Level 1034, Folate > 24.0 04/14/20 11:11: Coronavirus (COVID-19)(PCR) NEGATIVE CBC/BMP Laboratory Tests 04/14/20 09:15 Assessment/Plan Patient is 65-year-old with past medical history of coronary artery diseases, status post PCI, diabetes type 2, hypothyroidism, aortic stenosis, refractory anemia, etiology unclear, as previous workup showed no hemolysis, bone marrow aspiration and biopsy unremarkable, iron studies suggestive but not conclusive for iron deficiency with lightheadedness and weakness. Patient was found to have hemoglobin 7.2, no leukocytosis, creatinine 1.5, iron 57, TIBC 414. Chest x-ray showed Mild cardiomegaly. Coronary artery stenting. Otherwise no acute diseas e. Of note few months ago patient had colonoscopy and EGD unremarkable. Problems (1) Symptomatic anemia Status: Acute Problem Text: 2 units of blood transfusion Follow-up with injection moulding machine operator and PCP in the outpatient settings (2) CKD (chronic kidney disease), stage III Status: Acute Problem Text: Continue to monitor (3) Diabetes mellitus Status: Chronic Problem Text: Diabetes diet ISS (4) CAD (coronary artery disease) Status: Chronic Problem Text: Continue home cardioprotective medications (5) HTN (hypertension) Status: Chronic Problem Text: Continue home cardioprotective medications (6) CHF (congestive heart failure) Status: Chronic Problem Text: Not in acute exacerbation Plan / VTE VTE Prophylaxis Ordered?: Yes DEENA MOCTEZUMA DO Apr 14, 2020 12:18
[2020-04-14] MEDS ORDERED: GLUCAGON INJ 1MG VIAL SC PRN (12:30)
[2020-04-14] MEDS ORDERED: DEXTROSE 50% 50 ML SYRINGE IV PRN (12:30)
[2020-04-14] MEDS ORDERED: GLUCOSE 4GM CHEW TABLET PO PRN (12:30)
[2020-04-14] MEDS: HumaLOG INSULIN (NovoLOG) PER UNIT SC SCH ×2 (15:11→17:30)
[2020-04-14] MEDS: FUROSEMIDE 20MG/2ML VIAL (J1940) IV SCH ×2 (15:12→17:13)
[2020-04-14] MEDS ORDERED: metFORMIN (GLUCOPHAGE) 1000 MG TABLET PO SCH (18:00)
--- NOTE | 2020-04-14 18:42 | DS.PDOC ---
Discharge Summary General Date of Admission Apr 14, 2020 at 08:39 Date of Discharge 04/14/20 Discharge Summary PROCEDURES PERFORMED DURING STAY: [None]. ADMITTING DIAGNOSES: Symptomatic anemia CKD (chronic kidney disease), stage III Diabetes mellitus CAD (coronary artery disease) HTN (hypertension) DISCHARGE DIAGNOSES: Symptomatic anemia CKD (chronic kidney disease), stage III Diabetes mellitus CAD (coronary artery disease) HTN (hypertension) COMPLICATIONS/CHIEF COMPLAINT: Symptomatic Anemia. HISTORY OF PRESENT ILLNESS: Patient is 65-year-old with past medical history of coronary artery diseases, status post PCI, diabetes type 2, hypothyroidism, aortic stenosis, refractory anemia, etiology unclear, as previous workup showed no hemolysis, bone marrow aspiration and biopsy unremarkable, iron studies suggestive but not conclusive for iron deficiency with lightheadedness and weakness. Patient was found to have hemoglobin 7.2, no leukocytosis, creatinine 1.5, iron 57, TIBC 414. Chest x-ray showed Mild cardiomegaly. Coronary artery stenting. Otherwise no acute disease. Of note few months ago patient had colonoscopy and EGD unremarkable. HOSPITAL COURSE:. During hospital stay following issue addressed (1) Symptomatic anemia Patient received 2 units of blood transfusion Follow-up with flexographic printing press operator and PCP in the outpatient settings (2) CKD (chronic kidney disease), stage III Continue to monitor (3) Diabetes mellitus Diabetes diet ISS (4) CAD (coronary artery disease) Continue home cardioprotective medications (5) HTN (hypertension) Continue home cardioprotective medications (6) CHF (congestive heart failure) Not in acute exacerbation DISCHARGE MEDICATIONS: Please see below. ALLERGIES: Please see below. PHYSICAL EXAMINATION ON DISCHARGE: VITAL SIGNS: Please see below. Physical Examination General Exam: Positive: Alert, Cooperative Eye Exam: Positive: PERRLA ENT Exam: Positive: Atraumatic Neck Exam: Positive: Supple; Negative: JVD Chest Exam: Positive: Clear to auscultation Heart Exam: Positive: Rate Normal Telemetry: Positive: No significant arrhythmia Abdomen Exam: Positive: Normal bowel sounds Extremity Exam: Negative: Clubbing Skin Exam: Positive: Nl turgor and temperature Neuro Exam: Positive: Strength at 5/5 X4 ext Psych Exam: Positive: Mental status NL LABORATORY DATA: Please see below. IMAGING: COMPARISON: Comparison exam January 04, 2020.. TECHNIQUE: Sitting AP portable radiograph. FINDINGS: Monitoring electrodes are seen. Coronary artery stent material is visible in the distribution of the left coronary artery as before. Cardiomegaly is observed. Mitral annular calcification is seen. There is no evidence of pleural effusion or pulmonary edema. Pulmonary vasculature is not increased. No infiltrate is seen. There are degenerative changes in the thoracic spine and a mild dextroconvex curve is noted. Degenerative changes are noted in the shoulders as well. IMPRESSION: Mild cardiomegaly. Coronary artery stenting. Otherwise no acute disease. PROGNOSIS: Fair ACTIVITY: [As tolerated]. DIET: Cardiac DISPOSITION: Home ITEMS TO FOLLOWUP ON ON OUTPATIENT: Follow-up with PCP and flexographic printing press operator in 3-5 days DISCHARGE CONDITION: [Stable]. TIME SPENT ON DISCHARGE: Greater than 20 minutes. Vital Signs/I&Os Vital Signs Date Time Temp Pulse Resp B/P (MAP) Pulse Ox O2 Delivery O2 Flow Rate FiO2 04/14/20 18:19 98.1 76 17 163/86 97 Room Air 04/14/20 14:45 Laboratory Data Labs 24H Laboratory Tests 2 04/14/20 09:15: Immature Granulocyte % (Auto) 0.2, Neutrophils (%) (Auto) 60.8, Lymphocytes (%) (Auto) 29.0, Monocytes (%) (Auto) 6.5H, Eosinophils (%) (Auto) 2.3, Basophils (%) (Auto) 1.2H, Neutrophils # (Auto) 3.2, Lymphocytes # (Auto) 1.5, Monocytes # (Auto) 0.3, Eosinophils # (Auto) 0.1, Basophils # (Auto) 0.1, Reticulocyte # (auto) 59.3, Nucleated Red Blood Cells % (auto) 0.0, Percent Reticulocyte Count 2.5H, Reticulocyte Hemoglobin Equivalent 27.4, Anion Gap 7L, Glomerular Filtration Rate 46.8L, Calcium Level 9.1, Iron Level 37L, Total Iron Binding Capacity 414, Transferrin % Saturation 8.9L, Ferritin 87, Vitamin B12 Level 1034, Folate > 24.0 04/14/20 11:11: Coronavirus (COVID-19)(PCR) NEGATIVE 04/14/20 14:32: Bedside Glucose (Misc Panel) 161H 04/14/20 17:18: Bedside Glucose (Misc Panel) 136H CBC/BMP Laboratory Tests 04/14/20 09:15 FSBS Laboratory Tests Test 04/14/20 14:32 04/14/20 17:18 Range/Units Bedside Glucose (Misc Panel) 161 136 80-115 MG/DL Discharge Medications Scheduled Amlodipine Besylate (Amlodipine Besylate) 5 Mg Tablet, 5 MG PO QHS, (Reported) Atorvastatin Calcium (Atorvastatin Calcium) 80 Mg Tablet, 80 MG PO QHS, (Reported) Ferrous Sulfate (Iron) 325 Mg Tablet, 325 MG PO BID, (Reported) Furosemide (Furosemide) 40 Mg Tablet, 20 MG PO DAILY, (Reported) Levothyroxine Sodium (Levoxyl) 125 Mcg Tablet, 125 MCG PO DAILY, (Reported) Lisinopril (Lisinopril) 10 Mg Tablet, 10 MG PO QHS, (Reported) Metformin HCl (Metformin HCl) 1,000 Mg Tablet, 1,000 MG PO BID, (Reported) Metoprolol Succinate (Metoprolol Succinate) 50 Mg Tab.er.24h, 50 MG PO QHS, (Re ported) Spironolactone (Spironolactone) 25 Mg Tablet, 12.5 MG PO DAILY, (Reported) Tamsulosin Hcl (Tamsulosin HCl) 0.4 Mg Capsule, 0.4 MG PO QHS, (Reported) Scheduled PRN Acetaminophen (Acetaminophen) 325 Mg Tablet, 650 MG PO BID PRN for PAIN / FEVER, (Reported) Allergies Coded Allergies: No Known Allergies (Unverified , 02/13/19) DEENA MOCTEZUMA DO Apr 14, 2020 18:42
[2020-04-14 19:10] LABS: HEMATOCRIT 26.4 % (42.0-52.0); HEMOGLOBIN 8.3 g/dl (13.5-17.5)
[2020-04-14] MEDS ORDERED: METOPROLOL SUCC (TopROL XL) 50MG **XL** TAB PO SCH (21:00)
[2020-04-14] MEDS ORDERED: amLODIPine 5 MG TAB PO SCH (21:00)
[2020-04-14] MEDS ORDERED: TAMSULOSIN 0.4 MG CAP PO SCH (21:00)
[2020-04-14] MEDS ORDERED: ATORVASTATIN 20 MG TAB PO SCH (21:00)
[2020-04-14] MEDS ORDERED: FERROUS SULFATE 325MG TAB PO SCH (21:00)
[2020-04-14] MEDS ORDERED: lisinopriL 10 MG TAB PO SCH (21:00)
[2020-04-14] MEDS ORDERED: HumaLOG INSULIN (NovoLOG) PER UNIT SC SCH (21:00)
[2020-04-15] MEDS ORDERED: LEVOTHYROXINE 125MCG TABLET (0.125MG) PO SCH (06:00)
[2020-04-15] MEDS ORDERED: ENOXAPARIN 40MG/0.4ML SYRINGE (J1650 PER 10MG) SC SCH (09:00)
[2020-04-15] MEDS ORDERED: FLUBLOK(EGG FREE)(QUAD)INFLUENZA VACC 0.5ML SYRINGE 18YRS & OLDER IM ONE (09:00)
--- NOTE | 2020-04-16 07:47 | ECGEPIP ---
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
== END 2020-04-14 19:43 | disposition home or self-care (01) ==
LOC: M ED 08:38 → M ED INP 08:39 → ENRESERV 13:26 → M MSPAV 14:20
PROVIDERS: ADMIT Internal Medicine; ATTEND Internal Medicine
DX: D64.9 Anemia, unspecified (principal); N18.30 Chronic kidney disease, stage 3 unspecified; E11.9 Type 2 diabetes mellitus without complications; I25.10 Atherosclerotic heart disease of native coronary artery without angina pectoris; I12.9 Hypertensive chronic kidney disease with stage 1 through stage 4 chronic kidney disease, or unspecified chronic kidney disease; E03.9 Hypothyroidism, unspecified; I35.0 Nonrheumatic aortic (valve) stenosis; Z98.61 Coronary angioplasty status; Z79.899 Other long term (current) drug therapy; Z79.84 Long term (current) use of oral hypoglycemic drugs
CPT/HCPCS: 36415; 36430; 71045; 80048; 82607; 82728; 82746; 83010; 83550; 85014; 85018; 85025; 85046; 86850; 86900; 86901; 86920; 93005; 96374; 99285; G0378; J1940; P9016; U0002

== ENCOUNTER 2020-05-18 10:55 | Outpatient (CLI) | payer MEDICARE, MEDICAID ==
[~2020-05-18] VITALS: Ht 182.9 cm; Wt 87.2 kg
[~2020-05-18 10:55] MED LIST changes: +ACETAMINOPHEN TAB 650MG DOSE (2X325MG) PO SCH; +IRON65TA2 PO; +LANTINJ4 IM; +LEVO125T41 PO; +LISI10TA22 PO; -LISI10TA4 PO; -MAG400TA PO; +MAGN400T35 PO; +MAGN500T2 PO; +diphenhydrAMINE 25MG CAP PO SCH
[2020-05-18 11:15] VITALS: BP 147/67
[2020-05-18 11:26] VITALS: BP 147/67
[2020-05-18 11:55] VITALS: BP 142/71
[2020-05-18 12:55] VITALS: BP 155/67
[2020-05-18 13:50] VITALS: BP 142/62
== END 2020-05-18 13:55 | disposition home or self-care (01) ==
LOC: M INFU 10:55
PROVIDERS: ATTEND Internal Medicine Hematology & Oncology
DX: D46.4 Refractory anemia, unspecified (principal)
CPT/HCPCS: 36415; 36430; 86850; 86900; 86901; 86920; P9016

== ENCOUNTER → 2020-06-09 | Outpatient (REF) | payer MEDICARE, MEDICAID ==
[~2020-06-09] MED LIST changes: -ACETAMINOPHEN TAB 650MG DOSE (2X325MG) PO SCH; -diphenhydrAMINE 25MG CAP PO SCH
[2020-06-09 13:09] LABS: CALCIUM LEVEL 9.2 MG/DL (8.8-10.2); CREATININE FOR GFR 1.64 MG/DL (0.70-1.30); GLOMERULAR FILTRATION RATE 44.8 (>49); MAGNESIUM LEVEL 2.2 MG/DL (1.8-2.4); POTASSIUM SERUM 5.6 MEQ/L (3.5-5.1)
== END ==
LOC: M LAB REF 12:28
PROVIDERS: ATTEND Family Medicine
DX: I35.0 Nonrheumatic aortic (valve) stenosis (principal); I42.9 Cardiomyopathy, unspecified; I50.22 Chronic systolic (congestive) heart failure

== ENCOUNTER → 2020-09-03 | Outpatient (CLI) | payer MEDICARE, MEDICAID | LOC: M LABSMTC 10:10 | PROVIDERS: ATTEND Internal Medicine Cardiovascular Disease | DX: Z01.812 Encounter for preprocedural laboratory examination (principal); Z20.822 Contact with and (suspected) exposure to COVID-19 ==

== ENCOUNTER 2021-12-03 09:07 | Observation (INO) | payer MEDICARE, MEDICAID ==
[~2021-12-03] VITALS: Ht 182.9 cm; Wt 90.9 kg
[~2021-12-03 09:07] MED LIST changes: -LANTINJ4 IM; +LANTINJ4 SC; +POTA-151 PO; -POTA20TA6 PO
[2021-12-03 10:13] LABS: BASO % 0.6 % (0.0-1.0); EOS # 0.1 10^3/uL (0.0-0.5); EOS % 0.7 % (0.0-3.0); HEMATOCRIT 33.1 % (42.0-52.0); HEMOGLOBIN 10.8 g/dl (13.5-17.5); LYMPH # 1.5 10^3/uL (1.5-5.0); LYMPH % 22.2 % (24.0-44.0); MEAN CORPUSCULAR HEMOGLOBIN 32.7 pg (27.0-33.0); MEAN CORPUSCULAR HGB CONC 32.6 g/dl (32.0-36.5); MEAN CORPUSCULAR VOLUME 100.3 fl (80.0-96.0); MONO # 0.5 10^3/uL (0.0-0.8); MONO % 7.1 % (2.0-8.0); NEUTROPHILS # 4.8 10^3/uL (1.5-8.5); PLATELET COUNT, AUTOMATED 261 10^3/uL (150-450); WHITE BLOOD COUNT 6.9 10^3/uL (4.0-10.0)
[2021-12-03] MEDS ORDERED: FERR325T3 PO (10:14)
[2021-12-03] MEDS ORDERED: PANT40TA29 PO (10:14)
[2021-12-03] MEDS ORDERED: AMLO1TAB25 PO (10:14)
[2021-12-03 10:35] LABS: HEMOGLOBIN A1c 7.3 %
[2021-12-03 10:37] LABS: CALCIUM LEVEL 9.2 MG/DL (8.8-10.2); CREATININE FOR GFR 2.02 MG/DL (0.70-1.30); GLOMERULAR FILTRATION RATE 35.1 (>49); POTASSIUM SERUM 4.1 MEQ/L (3.5-5.1)
[2021-12-03 10:41] LABS: CK-MB VALUE MASS 3.2 NG/ML (<3.6); MB/CK RELATIVE INDEX 2.15 (< OR =4)
[2021-12-03] MEDS ORDERED: ASPIRIN 81 MG CHEW TABLET PO ONE (11:00)
[2021-12-03 11:05] LABS: RSV AMPLIFICATION NEGATIVE (NEGATIVE)
[2021-12-03] MEDS ORDERED: FURO20TA2 PO (11:38)
[2021-12-03] MEDS ORDERED: HOME MED LIST COMPLETE! XX SCH (11:40)
[2021-12-03] MEDS ORDERED: LR 1,000 ML IV SCH ×2 (12:40→18:30)
[2021-12-03] MEDS ORDERED: CLOPIDOGREL 300 MG TAB (PLAVIX) PO STA (13:36)
[2021-12-03] MEDS: HEPARIN SOD (PORCINE) 5000UNITS/ML 1ML VIAL/SYRINGE SC SCH ×2 (14:08→22:26)
[2021-12-03 14:14] LABS: CHOLESTEROL RISK RATIO 2.517 (<5)
[2021-12-03 16:53] VITALS: BP 160/80
[2021-12-03] MEDS ORDERED: GLUCOSE 4GM CHEW TABLET PO PRN (17:15)
[2021-12-03] MEDS ORDERED: DEXTROSE 50% 50 ML SYRINGE IV PRN (17:15)
[2021-12-03] MEDS ORDERED: GLUCAGON INJ 1MG VIAL SC PRN (17:15)
[2021-12-03] MEDS ORDERED: INSULIN LISPRO (NovoLOG) PER UNIT SC SCH ×2 (17:30→21:00)
[2021-12-03] MEDS ORDERED: ACETAMINOPHEN 325 MG TAB PO PRN (17:50)
[2021-12-03] MEDS: ATORVASTATIN 20 MG TAB PO SCH (18:33)
[2021-12-03 19:56] VITALS: BP 152/70
[2021-12-03] MEDS ORDERED: LEVEMIR (INSULIN DETEMIR) 1 UNITS/0.01ML SC SCH (21:00)
[2021-12-03] MEDS ORDERED: ROSUVASTATIN 10 MG TAB (CRESTOR) PO SCH (21:00)
[2021-12-03] MEDS ORDERED: FERROUS SULFATE 325MG TAB PO SCH (21:00)
[2021-12-03] MEDS ORDERED: PANTOPRAZOLE 40MG TAB (PROTONIX) PO SCH (21:00)
[2021-12-03] MEDS ORDERED: MAGNESIUM OXIDE 400MG TAB (MAG-OX) PO SCH (21:00)
[2021-12-03] MEDS: D5W/0.45% SODIUM CHLORIDE 1,000 ML IV SCH (22:26)
[2021-12-04] MEDS: D5W/0.45% SODIUM CHLORIDE 1,000 ML IV SCH ×2 (05:38→12:29)
[2021-12-04] MEDS: HEPARIN SOD (PORCINE) 5000UNITS/ML 1ML VIAL/SYRINGE SC SCH ×2 (05:38→12:30)
[2021-12-04 05:56] VITALS: BP 165/77
[2021-12-04] MEDS: INSULIN LISPRO (NovoLOG) PER UNIT SC SCH ×4 (06:00→18:00)
[2021-12-04] MEDS ORDERED: LEVOTHYROXINE 125MCG TABLET (0.125MG) PO SCH (06:00)
[2021-12-04 06:30] LABS: ALBUMIN 2.6 GM/DL (3.2-5.2); BILIRUBIN,TOTAL 0.4 MG/DL (0.2-1.0); CALCIUM LEVEL 8.9 MG/DL (8.8-10.2); CREATININE FOR GFR 1.5 MG/DL (0.70-1.30); GLOMERULAR FILTRATION RATE 49.5 (>49); POTASSIUM SERUM 4.1 MEQ/L (3.5-5.1); TOTAL PROTEIN 5.6 GM/DL (6.4-8.2)
[2021-12-04] MEDS ORDERED: CLOPIDOGREL 75 MG TAB PO SCH (09:00)
[2021-12-04] MEDS ORDERED: ASPIRIN 81MG ENTERIC TABLET PO SCH (09:00)
[2021-12-04] MEDS ORDERED: PREVNAR 13 VACCINE SYRINGE IM.IMMUN ONE (09:00)
[2021-12-04 14:00] VITALS: BP 175/79
[2021-12-04] MEDS: ATORVASTATIN 20 MG TAB PO SCH (18:00)
[2021-12-04] MEDS ORDERED: TAMSULOSIN 0.4 MG CAP PO SCH (21:00)
[2021-12-05] MEDS ORDERED: PLAV1TAB2 PO (19:04)
== END 2021-12-04 19:04 | disposition left against medical advice (07) ==
LOC: M ED 09:07 → M ED INP 12:38 → M MSPAV 16:52
PROVIDERS: ADMIT Student in an Organized Health Care Education/Training Program; ATTEND Student in an Organized Health Care Education/Training Program
DX: I63.40 Cerebral infarction due to embolism of unspecified cerebral artery (principal); Z53.20 Procedure and treatment not carried out because of patient's decision for unspecified reasons; I25.10 Atherosclerotic heart disease of native coronary artery without angina pectoris; I35.0 Nonrheumatic aortic (valve) stenosis; I34.2 Nonrheumatic mitral (valve) stenosis; Z98.61 Coronary angioplasty status; Z95.2 Presence of prosthetic heart valve; E03.9 Hypothyroidism, unspecified; I25.2 Old myocardial infarction; E11.9 Type 2 diabetes mellitus without complications; I50.9 Heart failure, unspecified; I11.0 Hypertensive heart disease with heart failure; Z79.82 Long term (current) use of aspirin; Z79.02 Long term (current) use of antithrombotics/antiplatelets; Z79.899 Other long term (current) drug therapy; N40.0 Benign prostatic hyperplasia without lower urinary tract symptoms; K21.9 Gastro-esophageal reflux disease without esophagitis; Z79.4 Long term (current) use of insulin; D64.9 Anemia, unspecified
CPT/HCPCS: 36415; 70450; 70544; 70547; 70551; 71045; 80048; 80053; 80061; 82550; 82553; 83036; 84484; 85025; 85730; 87631; 90670; 93005; 93041; 94760; 96361; 96372; 96375; 97161; 99285; G0009; G0378; J1644; J1815